=== PATIENT | female | born 1960 | race Caucasian/White ===

== ENCOUNTER 2019-07-05 15:26 | Inpatient (IN) | payer MEDICARE, OTHER ==
[2019-07-05 16:22] LABS: Basophils % (A) 0 %; Eosinophils # (A) 0.1 k/uL (0-0.7); Eosinophils % (A) 1 %; HCT 37.6 % (34.0-46.0); HGB 12.8 gm/dL (11.4-16.0); Lymphocytes # (A) 1.4 k/uL (1.0-4.8); Lymphocytes % (A) 21 %; MCH 31.5 pg (25.0-35.0); MCHC 33.9 g/dL (31.0-37.0); MCV 92.8 fL (80.0-100.0); Mean Platelet Volume 6.8; Monocytes # (A) 0.4 k/uL (0-1.0); Monocytes % (A) 6 %; Neutrophils # (A) 4.7 k/uL (1.3-7.7); Neutrophils % (A) 71 %; Platelet Count 290 k/uL (150-450); RBC 4.05 m/uL (3.80-5.40); RDW 13.9 % (11.5-15.5); WBC 6.7 k/uL (3.8-10.6)
[2019-07-05 16:32] LABS: Albumin 4.2 g/dL (3.5-5.0); Calcium 10.1 mg/dL (8.4-10.2); INR 0.9 (<1.2); Partial Thromboplastin Time 25.7 sec (22.0-30.0); Prothrombin Time 10.2 sec (9.0-12.0); Total Bilirubin 0.3 mg/dL (0.2-1.3); Total Protein 7.3 g/dL (6.3-8.2)
--- NOTE | 2019-07-05 17:11 | XR ---
EXAMINATION TYPE: XR chest 2V DATE OF EXAM: 07/05/2019 COMPARISON: NONE HISTORY: Difficulty breathing TECHNIQUE: Frontal and lateral views of the chest are obtained. FINDINGS: Heart and mediastinum are normal. Lungs are clear. Diaphragm is normal. Bony thorax appear s to show old healed right-sided rib fractures. IMPRESSION: No active cardiopulmonary disease. Normal heart.
--- NOTE | 2019-07-05 17:11 | ED ---
General Adult HPI - General Chief complaint: Shortness of Breath Stated complaint: Anxiety Time Seen by Provider: 07/05/19 15:34 Source: EMS Mode of arrival: EMS Limitations: no limitations - History of Present Illness Initial comments: Patient is 58-year-old female with history of hypercholesterolemia is presenting to emergency Department with chief complaint of shortness of breath. Patient reports this has been ongoing for the last 2 years but has greatly increased over the last week. Patient reports dyspnea on exertion whenever she is an bleeding. Patient denies any chest pain but does report an intermittent dry cough. Patient is concerned for heart failure. Patient denies any chest pain or any cardiac history. Patient states she's never had a cardiac workup but was scheduled to see Dr. Mccracken this week however she was unable to make it to the appointment. Patient denies any hemoptysis, nausea, vomiting, chest palpitations, headaches. She does report bilateral lower extremity edema that has been ongoing for the past 2 years as well and gradually increasing severity. Patient denies COPD, asthma or smoking. Patient does have a positive family history of early cardiac disease. - Related Data Allergies Allergy/AdvReac Type Severity Reaction Status Date / Time codeine Allergy Nausea & Verified 07/05/19 15:32 Vomiting oxcarbazepine Allergy Rash/Hives Verified 07/05/19 15:32 [From Trileptal] Review of Systems ROS Statement: Those systems with pertinent positive or pertinent negative responses have been documented in the HPI. ROS Other: All systems not noted in ROS Statement are negative. Past Medical History Past Medical History: Diabetes Mellitus, Hyperlipidemia, Thyroid Disorder History of Any Multi-Drug Resistant Organisms: None Reported Past Surgical History: Hysterectomy Past Psychological History: ADD/ADHD, Schizoaffective Disorder, Schizophrenia Smoking Status: Never smoker Past Alcohol Use History: None Reported Past Drug Use History: None Reported General Exam Limitations: no limitations General appearance: alert, in no apparent distress, obese Head exam: Present: atraumatic, normocephalic, normal inspection Eye exam: Present: normal appearance, PERRL, EOMI Pupils: Present: normal accommodation ENT exam: Present: normal exam, mucous membranes moist Neck exam: Present: normal inspection, full ROM Respiratory exam: Present: normal lung sounds bilaterally. Absent: respiratory distress Cardiovascular Exam: Present: regular rate, normal rhythm, normal heart sounds Extremities exam: Present: normal inspection, full ROM, normal capillary refill, pedal edema (+1 bilateral lower extremity edema.) Back exam: Present: normal inspection, full ROM Neurological exam: Present: alert, oriented X3 Psychiatric exam: Present: normal affect, normal mood Skin exam: Present: warm, intact, normal color Course Vital Signs 07/05/19 07/05/19 15:28 18:13 Temperature 98 F Pulse Rate 87 81 Respiratory 20 20 Rate Blood Pressure 133/81 134/93 O2 Sat by Pulse 98 98 Oximetry Medical Decision Making - Medical Decision Making Patient is 58-year-old female presenting to emergency Department with chief complaint of shortness of breath. Patient is also complaining of dyspnea on exertion. Her symptoms have been ongoing for about 2 years but the dyspnea on exertion is only for one week. Initial troponins are negative. EKG showing normal sinus rhythm with no ST changes. Patient has elevated d-dimer. CT of the chest is indicative of a pulmonary embolism in the left lower lobe. Patient started high-intensity heparin. Patient will be admitted for further medical management. Case discussed with physician. Medical physician is Dr. Toro. - Lab Data Result diagrams: 07/05/19 16:14 07/05/19 16:14 Lab Results 07/05/19 07/05/19 07/05/19 Range/Units 16:14 16:14 16:14 WBC 6.7 (3.8-10.6) k/uL RBC 4.05 (3.80-5.40) m/uL Hgb 12.8 (11.4-16.0) gm/dL Hct 37.6 (34.0-46.0) % MCV 92.8 (80.0-100.0) fL MCH 31.5 (25.0-35.0) pg MCHC 33.9 (31.0-37.0) g/dL RDW 13.9 (11.5-15.5) % Plt Count 290 (150-450) k/uL Neutrophils % 71 % Lymphocytes % 21 % Monocytes % 6 % Eosinophils % 1 % Basophils % 0 % Neutrophils # 4.7 (1.3-7.7) k/uL Lymphocytes # 1.4 (1.0-4.8) k/uL Monocytes # 0.4 (0-1.0) k/uL Eosinophils # 0.1 (0-0.7) k/uL Basophils # 0.0 (0-0.2) k/uL PT (9.0-12.0) sec INR (<1.2) APTT (22.0-30.0) sec D-Dimer (<0.60) mg/L FEU Sodium 140 (137-145) mmol/L Potassium 4.0 (3.5-5.1) mmol/L Chloride 102 (98-107) mmol/L Carbon Dioxide 31 H (22-30) mmol/L Anion Gap 7 mmol/L BUN 17 (7-17) mg/dL Creatinine 0.96 (0.52-1.04) mg/dL Est GFR (CKD-EPI)AfAm 74 (>60 ml/min/1.73 sqM) Est GFR (CKD-EPI)NonAf 65 (>60 ml/min/1.73 sqM) Glucose 96 (74-99) mg/dL Calcium 10.1 (8.4-10.2) mg/dL Total Bilirubin 0.3 (0.2-1.3) mg/dL AST 22 (14-36) U/L ALT 26 (9-52) U/L Alkaline Phosphatase 69 (38-126) U/L Troponin I (0.000-0.034) ng/mL NT-Pro-B Natriuret Pep 32 pg/mL Total Protein 7.3 (6.3-8.2) g/dL Albumin 4.2 (3.5-5.0) g/dL 07/05/19 07/05/19 07/05/19 Range/Units 16:14 16:14 16:14 WBC (3.8-10.6) k/uL RBC (3.80-5.40) m/uL Hgb (11.4-16.0) gm/dL Hct (34.0-46.0) % MCV (80.0-100.0) fL MCH (25.0-35.0) pg MCHC (31.0-37.0) g/dL RDW (11.5-15.5) % Plt Count (150-450) k/uL Neutrophils % % Lymphocytes % % Monocytes % % Eosinophils % % Basophils % % Neutrophils # (1.3-7.7) k/uL Lymphocytes # (1.0-4.8) k/uL Monocytes # (0-1.0) k/uL Eosinophils # (0-0.7) k/uL Basophils # (0-0.2) k/uL PT 10.2 (9.0-12.0) sec INR 0.9 (<1.2) APTT 25.7 (22.0-30.0) sec D-Dimer 0.77 H (<0.60) mg/L FEU Sodium (137-145) mmol/L Potassium (3.5-5.1) mmol/L Chloride (98-107) mmol/L Carbon Dioxide (22-30) mmol/L Anion Gap mmol/L BUN (7-17) mg/dL Creatinine (0.52-1.04) mg/dL Est GFR (CKD-EPI)AfAm (>60 ml/min/1.73 sqM) Est GFR (CKD-EPI)NonAf (>60 ml/min/1.73 sqM) Glucose (74-99) mg/dL Calcium (8.4-10.2) mg/dL Total Bilirubin (0.2-1.3) mg/dL AST (14-36) U/L ALT (9-52) U/L Alkaline Phosphatase (38-126) U/L Troponin I <0.012 (0.000-0.034) ng/mL NT-Pro-B Natriuret Pep pg/mL Total Protein (6.3-8.2) g/dL Albumin (3.5-5.0) g/dL Disposition Clinical Impression: Pulmonary embolism on left, Shortness of breath Disposition: ADMITTED IP TO THIS [facility] Condition: Stable Instructions (If sedation given, give patient instructions): Pulmonary Embolism (ED) Additional Instructions: Patient will be admitted Is patient prescribed a controlled substance at d/c from ED?: No Referrals: Jamari Castro MD [Primary Care Provider] - 1-2 days Time of Disposition: 18:26
--- NOTE | 2019-07-05 17:56 | CT ---
EXAMINATION TYPE: CT chest angio for PE DATE OF EXAM: 07/05/2019 COMPARISON: None HISTORY: Pt c/o SOB, something she has had for [address] DLP: 1072.2 mGycm Automated exposure control for dose reduction was used. CONTRAST: CT Chest for pulmonary embolism performed with with IV Contrast, patient injected with 100 mL of Isov ue 370. FINDINGS: There is a diffuse interstitial pulmonary infiltrate. There is groundglass interstitial density in jewels th lungs. There is no pleural effusion. Heart size is top normal. There is no pericardial effusion. Ascending aorta measures 3.4 cm. There is no dissection. There are small filling defect in the left l ower lobe artery and the posterior basal segment branch. There is no mediastinal adenopathy. There are no hilar masses. Bony thorax is intact. IMPRESSION: There is pulmonary embolism in a subsegmental branch of the left lower lobe pulmonary artery posterio r basal segment. Diffuse groundglass pulmonary interstitial infiltrates. This is nonspecific and could relate to inter stitial fibrosis or other interstitial lung disease. Minimal cardiomegaly. This exam was discussed with ER physician at 6:00 PM.
[2019-07-05] MEDS ORDERED: HEPARIN SODIUM,PORCINE 5,000 UNIT/ML 1 ML VIAL IV PRN (18:06)
[2019-07-05] MEDS ORDERED: HEPARIN SODIUM,PORCINE 10,000 UNIT/ML 1 ML VIAL IV ONE (18:06)
[2019-07-05] MEDS ORDERED: NALOXONE 0.4 MG/ML 1 ML VIAL IV PRN (18:15)
[2019-07-05] MEDS ORDERED: LORazepam 2 MG/ML INJ IV PRN (18:15)
[2019-07-05] MEDS: HEPARIN SOD,PORK IN 0.45% NACL 25,000 UNIT in 0.45% NACL 1 250ML.BAG IV SCH (18:37)
[2019-07-05] MEDS: SODIUM CHLORIDE 0.9% 1,000 ML IV SCH (18:39)
[2019-07-05] MEDS: ATORVASTATIN 20 MG TAB PO SCH (20:36)
[2019-07-05] MEDS: GABAPENTIN 400 MG CAP PO SCH (20:36)
[2019-07-05] MEDS: CARIPRAZINE HCL 6 MG PO SCH (20:41)
[2019-07-05] MEDS: PANTOPRAZOLE 40 MG TABLET PO SCH (20:41)
[2019-07-05] MEDS: INSULIN ASPART (NovoLOG) 100 UNIT/ML VIAL SQ SCH (20:41)
[2019-07-05 20:42] LABS: Glucose,Whole Blood 85 mg/dL (75-99)
--- NOTE | 2019-07-05 21:08 | US ---
EXAMINATION TYPE: US venous doppler duplex LE DATE OF EXAM: 07/05/2019 8:11 PM COMPARISON: NONE CLINICAL HISTORY: dvt. PE. On heparin. SIDE PERFORMED: Bilateral TECHNIQUE: The lower extremity deep venous system is examined utilizing real time linear array sonog betty with graded compression, doppler sonography and color-flow sonography. VESSELS IMAGED: External Iliac Vein (EIV) Common Femoral Vein Deep Femoral Vein Greater Saphenous Vein * Femoral Vein Popliteal Vein Small Saphenous Vein * Proximal Calf Veins (* superficial vessels) Limited due to patient body habitus Right Leg: Negative for DVT Left Leg: Negative for DVT IMPRESSION: No evidence of deep venous thrombosis in both legs.
[2019-07-05] MEDS: IPRATROPIUM-ALBUTEROL 3 ML NEB INHALATION SCH (21:45)
[2019-07-05] MEDS: QUEtiapine 25 MG TAB PO SCH (22:42)
[2019-07-05] MEDS: VENLAFAXINE HCL ER 150 MG CAP PO SCH (22:42)
--- NOTE | 2019-07-06 02:14 | HP ---
HISTORY AND PHYSICAL DATE OF SERVICE: 07/05/2019. CHIEF COMPLAINT: Shortness of breath. HISTORY OF PRESENT ILLNESS: This 58-year-old woman with a past medical history of diabetes, hypertension, hyperlipidemia, history of ADD, schizoaffective disorder, schizophrenia, being followed by Dr. Castro in the outpatient setting was complaining of shortness of breath, especially on exertion for the last several days. The patient came to [facility] and was admitted for further evaluation and treatment. A CT scan of the chest was done in the ER. The patient does not have any chest pain but intermittent cough without expectoration was complained of. There is no history of fever, rigors or chills. No history of headache, loss of consciousness or seizures. The D-dimer was elevated and CT angio chest showed subsegment pulmonary artery embolism on the right side and as well as some interstitial changes. Patient admitted for further evaluation and treatment. The patient did have an extensive pneumonia at the childhood according to her. There is no history of any fever, rigor or chills. PAST MEDICAL HISTORY: History of diabetes, hypertension, hyperlipidemia, hysterectomy, ADD, ADHD, schizoaffective depressive disorder, schizophrenia, history of pneumonia in childhood. MEDICATIONS: Home medications are: 1. Trazodone 150 mg q.h.s. 2. Effexor XR 300 mg q.h.s. 3. [place] Thyroid 90 mg p.o. daily. 4. Protonix 40 mg p.o. b.i.d. 5. Seroquel 25 mg q.h.s. 6. Neurontin 1200 mg q.h.s. 7. Estrace 1 g daily. 8. Adderall 30 mg p.o. daily. 10.Vraylar 6 mg p.o. q.h.s. 11.Lipitor 20 mg q.h.s. 12.Ventolin 1-2 puffs q.4 p.r.n. ALLERGIES: CODEINE AND TRILEPTAL. FAMILY HISTORY: No history of heart disease, strokes in the family. SOCIAL HISTORY: No history of smoking. No alcohol intake. REVIEW OF SYSTEMS: ENT: No diminished vision. No diminished hearing. CARDIOVASCULAR: No angina or palpitations. RESPIRATION as mentioned earlier. GI: No nausea or vomiting. no dysuria or retention. Nervous system: No numbness or weakness. Allergy/Immunology: No asthma or hayfever. MUSCULOSKELETAL as mentioned earlier. Hematology/Oncology: No history or anemia. ENDOCRINE: No history of diabetes or hypothyroidism. CONSTITUTIONAL: As mentioned earlier. DERMATOLOGY: Negative. RHEUMATOLOGY negative. PSYCHIATRY as mentioned earlier. PULMONARY: As mentioned earlier. HEMATOLOGY mentioned earlier. PHYSICAL EXAMINATION: Alert and oriented times three. Pulse 87, blood pressure 133/81, respiration 20, temperature 98 degrees, pulse ox 98% on room air. HEENT: Conjunctivae normal. Oral mucosa moist. NECK is obese. No jugular venous distention. No carotid bruit. No lymph node enlargements. Breathing efforts increased. Cardiovascular system: S1, S2 muffled. No S3, no S4. RESPIRATORY: Breath sounds diminished in the bases. A few scattered rhonchi and crackles. ABDOMEN: Soft, obese, nontender. No mass palpable. LEGS no edema. No swelling. NERVOUS SYSTEM: Higher functions as mentioned earlier. Moves all four limbs. No focal motor or sensory deficits. LYMPHATICS: No lymph nodes palpable in the neck, axillae or groin. SKIN: No ulcer, rash or bleeding. JOINTS: No active deforming arthropathy. LABS: At this time: CBC within normal limits. D-dimer is 0.77. The CT angio personally reviewed by me. ASSESSMENT: 1. Shortness of breath with acute pulmonary embolism on the right side. 2. Rule out interstitial infiltrate versus scarring. 3. Elevated D-dimer 0.77. 4. Super morbid obesity BMI of 53.6. 5. History of diabetes type 2. 6. Hyperlipidemia. 7. Hypothyroidism. 8. History of hysterectomy. 9. History attention-deficit disorder/ attention-deficit/hyperactivity disorder. 10.History of schizophrenia and schizoaffective disorder. 11.Passive smoking exposure. 12.Remote history of pneumonia while in childhood. 13.FULL CODE. RECOMMENDATIONS AND DISCUSSION: In this 58-year-old woman who presented with multiple complex medical issues, at this time, I recommend to continue current medications, management and symptomatic treatment. I recommend continue with IV heparin per protocol. Otherwise, resume the home medications. Consult Dr. Childers and I would also recommend ultrasound of the legs to rule out the possibility of DVT. Symptomatic treatment provided. The patient also had some shortness of breath and some exposure to the smoking. The addition possibility of COPD is also to be considered. I would recommend empiric bronchodilators at this time and we will continue to monitor. The patient might require outpatient workup to rule out the possibility of any obstructive lung disease. Once again, the prognosis is guarded. Copy of dictation being forwarded to Dr. Castro who is the primary physician. Further recommendations to follow. Discussed with the patient who understands and agrees. Matthew's soft. MMKAMARL / IJN: [id number] / MTDD
[2019-07-06] MEDS: HEPARIN SOD,PORK IN 0.45% NACL 25,000 UNIT in 0.45% NACL 1 250ML.BAG IV SCH ×2 (04:34→19:03)
[2019-07-06 07:07] LABS: Glucose,Whole Blood 108 mg/dL (75-99)
[2019-07-06] MEDS: INSULIN ASPART (NovoLOG) 100 UNIT/ML VIAL SQ SCH ×4 (08:04→20:48)
[2019-07-06] MEDS: DEXTROAMPHETAMINE PO SCH (08:05)
[2019-07-06] MEDS: AMPHETAMINE PO SCH (08:05)
[2019-07-06] MEDS: PANTOPRAZOLE 40 MG TABLET PO SCH ×2 (08:10→16:42)
[2019-07-06] MEDS: THYROID, PORK 30 MG TAB PO SCH (08:11)
[2019-07-06] MEDS: LORATADINE 10 MG TAB PO SCH (08:11)
[2019-07-06] MEDS: NON FORMULARY DRUG (Dextroamphetamine/Amphetamine [Adderall] 30 MG) PO SCH (08:13)
[2019-07-06 08:14] LABS: Basophils % (A) 1 %; Eosinophils # (A) 0.2 k/uL (0-0.7); Eosinophils % (A) 4 %; HCT 38.2 % (34.0-46.0); HGB 12.7 gm/dL (11.4-16.0); Lymphocytes # (A) 1.4 k/uL (1.0-4.8); Lymphocytes % (A) 30 %; MCH 31.4 pg (25.0-35.0); MCHC 33.4 g/dL (31.0-37.0); Mean Platelet Volume 7.9; Monocytes # (A) 0.3 k/uL (0-1.0); Monocytes % (A) 7 %; Neutrophils # (A) 2.6 k/uL (1.3-7.7); Neutrophils % (A) 57 %; Platelet Count 218 k/uL (150-450); RBC 4.06 m/uL (3.80-5.40); WBC 4.6 k/uL (3.8-10.6)
[2019-07-06 08:25] LABS: Calcium 9.6 mg/dL (8.4-10.2); Potassium 4.8 mmol/L (3.5-5.1)
[2019-07-06] MEDS: IPRATROPIUM-ALBUTEROL 3 ML NEB INHALATION SCH ×4 (08:40→19:48)
[2019-07-06] MEDS: SODIUM CHLORIDE 0.9% 1,000 ML IV SCH (08:43)
[2019-07-06 11:48] LABS: Glucose,Whole Blood 86 mg/dL (75-99)
--- NOTE | 2019-07-06 14:52 | CT ---
EXAMINATION TYPE: CT chest wo con DATE OF EXAM: 07/06/2019 COMPARISON: None HISTORY: rule out ILD, dyspnea CT DLP: 1682.8 mGycm High-resolution noncontrast CT of the chest was performed with the patient in the prone and supine po sitions. Lung and mediastinal window settings are submitted. The lungs appear to be well-aerated. Subpleural fibrotic changes are noted within both lung s[place] mi ld in degree within the mid and lower lung zones right slightly greater than left. There is no eviden ce for bronchiectasis, groundglass infiltrate, nodule or mass. No pleural effusion is identified. I do not see evidence for hilar or mediastinal mass or adenopathy. IMPRESSION: Mild subpleural fibrosis as discussed.
--- NOTE | 2019-07-06 15:03 | XR ---
EXAMINATION TYPE: XR knee complete LT DATE OF EXAM: 07/06/2019 CLINICAL HISTORY: pain TECHNIQUE: Three views of the left knee are obtained. COMPARISON: None. FINDINGS: There is no acute fracture/dislocation. Moderate to severe degenerative degenerative joint space narrowing medial tibiofemoral joint space and patellofemoral joint space with associated spur formation. The overlying soft tissue appears unremarkable. IMPRESSION: There is no acute fracture or dislocation ICD 10 NO FRACTURE, INITIAL EVALUATION
--- NOTE | 2019-07-06 15:38 | P.CNPUL ---
History of Present Illness Consult date: 07/06/19 Reason for consult: dyspnea History of present illness: This is a 58-year-old female patient, morbidly obese, previous history of psychiatric disorder including schizoaffective disorder and ADD, diabetic and has hypothyroidism and hyperlipidemia, and she Has a BMI 53.6. No personal or family history of DVT or pulmonary embolism. The patient has chronic exertional dyspnea and typically she gets short of breath with limited amount of activity. Over the past few weeks she has expiratory is worsening shortness of breath. No pleurisy. No hemoptysis. No chest pain. No leg edema. Pain or tenderness. She came into the emergency department and she had a troponin within normal limits, BNP level of 32, d-dimer of 0.77 and for that reason a CT angiogram was ordered. The CT angiogram raises the possibility of a subsegmental left lower l obe filling defect consistent with pulmonary embolism and for that reason the patient was started on IV heparin. Note that the Doppler of the lower extremities of been negative. The patient is a bit anxious pH is short of breath. 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 He did the job at the age of 16 for only [address] angiogram also raised the possibility of around last changes and for that reason I'm going to proceed with a high resolution computed tomography scan of the chest to make sure there is no possibility of an underlying interstitial lung disease. No a nemia. Currently on IV heparin. Review of Systems Constitutional: Reports daytime sleepiness, Reports fatigue, Reports weakness Eyes: denies as per HPI, denies blurred vision, denies bulging eye, denies decreased vision, denies diplopia, denies discharge, denies dry eye, denies irritation, denies itching, denies pain, denies photophobia, denies loss of peripheral vision, denies loss of vision, denies tunnel vision/blind spots Ears: deny: decreased hearing, ear discharge, earache, tinnitus Ears, nose, mouth and throat: Denies headache, Denies sore throat Breasts: absent: as per HPI, change in shape, gynecomastia, masses, nipple discharge, pain, skin changes, swelling Cardiovascular: Reports dyspnea on exertion Respiratory: Reports dyspnea, Reports sleep apnea, Reports snoring Gastrointestinal: Denies abdominal pain, Denies diarrhea, Denies nausea, Denies vomiting Genitourinary: Reports as per HPI Menstruation: Reports as per HPI Musculoskeletal: Reports as per HPI Musculoskeletal: absent: ankle pain, ankle stiffness, ankle swelling, as per HPI, elbow pain, elbow stiffness, elbow swelling, foot pain, foot stiffness, foot swelling, hand pain, hand stiffness, hand swelling, hip pain, hip stiffness, hip swelling, knee pain, knee stiffness, knee swelling, shoulder pain, shoulder stiffness, shoulder swelling, wrist pain, wrist stiffness, wrist swelling Integumentary: Reports as per HPI Neurological: Reports as per HPI Psychiatric: Reports anxiety, Reports depression, Reports sleep disturbances Endocrine: Reports as per HPI, Reports fatigue Hematologic/Lymphatic: Reports as per HPI Allergic/Immunologic: Reports as per HPI Past Medical History Past Medical History: Diabetes Mellitus, Hyperlipidemia, Thyroid Disorder Additional Past Medical History / Comment(s): Osteoporosis, ADD, OCD, schizoaffective disorder, hypothyroid, osteoporosis, obesity, hyperlipidemia. 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 age of 16 worked for [employer] and exposure to silica and jacobo dust History of Any Multi-Drug Resistant Organisms: None Reported Past Surgical History: Hysterectomy Additional Past Surgical History / Comment(s): endometrosis surgeries x2 Past Anesthesia/Blood Transfusion Reactions: No Reported Reaction, Blood Transfusion Reaction Additional Past Anesthesia/Blood Transfusion Reaction / Comment(s): PAtient wants no blood transfusions Past Psychological History: ADD/ADHD, Schizoaffective Disorder, Schizophrenia Smoking Status: Former smoker (2 py only quit aat the age og 16) Past Alcohol Use History: None Reported Past Drug Use History: None Reported - Past Family History Mother Additional Family Medical History / Comment(s): tutuyma from Father Family Medical History: Myocardial Infarction ([place]) Additional Family Medical History / Comment(s): at 67 Medications and Allergies Home Medications Medication Instructions Recorded Confirmed Type Albuterol Sulfate [Ventolin HFA] 1 - 2 puff INHALATION RT-Q4H PRN 07/05/19 History Atorvastatin [Lipitor] 20 mg PO HS 07/05/19 07/05/19 History Cariprazine HCl [Vraylar] 6 mg PO HS 07/05/19 07/05/19 History Cetirizine HCl [Zyrtec] 10 mg PO DAILY 07/05/19 07/05/19 History Dextroamphetamine/Amphetamine 30 mg PO DAILY@1500 07/05/19 07/05/19 History [Adderall] Dextroamphetamine/Amphetamine 60 mg PO DAILY@0800 07/05/19 07/05/19 History [Adderall] Estradiol Cream [Estrace Cream 1 gm VAGINAL WE 07/05/19 07/05/19 History 0.01%] Gabapentin [Neurontin] 1,200 mg PO HS 07/05/19 07/05/19 History Pantoprazole Sodium [Protonix] 40 mg PO BID 07/05/19 07/05/19 History QUEtiapine [SEROquel] 25 mg PO HS 07/05/19 07/05/19 History Thyroid,Pork [[place] Thyroid] 90 mg PO DAILY 07/05/19 07/05/19 History Venlafaxine HCl [Effexor XR] 300 mg PO HS 07/05/19 07/05/19 History traZODone HCL 150 mg PO HS 07/05/19 07/05/19 History Allergies Allergy/AdvReac Type Severity Reaction Status Date / Time codeine Allergy Nausea & Verified 07/05/19 18:30 Vomiting oxcarbazepine Allergy Rash/Hives Verified 07/05/19 18:30 [From Trileptal] Physical Exam Vitals: Vital Signs Temp Pulse Pulse Resp BP BP Pulse Ox 07/06/19 11:51 74 07/06/19 11:40 72 07/06/19 07:52 97.6 F 78 16 111/72 98 07/06/19 02:00 97.9 F 69 16 112/71 93 L 07/05/19 21:56 75 07/05/19 21:46 75 94 L 07/05/19 19:35 98.0 F 70 145/83 96 07/05/19 18:50 87 20 141/83 97 07/05/19 18:13 81 20 134/93 98 07/05/19 15:28 98 F 87 20 133/81 98 Intake and Output 07/05/19 07/06/19 07/06/19 22:59 06:59 14:59 Intake Total 630 969.362 75.468 Balance 630 969.362 75.468 Intake: Intake, IV Titration 150 969.362 75.468 Amount Heparin Sod,Pork in 0.45% 219.362 75.468 NaCl 25,000 unit In 0.45 % NaCl 1 250ml.bag @ 15. 273 UNITS/KG/HR 23 mls/hr IV .[id number] [facility] Rx#: [id number] Sodium Chloride 0.9% 1, 150 750 000 ml @ 75 mls/hr IV . [id number] [facility] Rx#:[id number] Oral 480 Other: Voiding Method Toilet # Voids 1 Weight 150.593 kg Morbidly obese, comfortable likely distress care is a BMI of 53.6. Head exam was generally normal. There was no scleral icterus or corneal arcus. Mucous membranes were moist. Neck was supple and without jugular venous distension, thyromegaly, or carotid bruits. Carotids were easily palpable bilaterally. There was no adenopathy. Lymphatic less for Lungs were clear to auscultation and percussion, and with normal diaphragmatic excursion. No wheezes or rales were noted. Breath sounds are diminished in the lung bases. No wheezes or rhonchi or crackles. Cardiac exam revealed the PMI to be normally situated and sized. The rhythm was regular and no extrasystoles were noted during several minutes of auscultation. The first and second heart sounds were normal and physiologic splitting of the second heart sound was noted. There were no murmurs, rubs, clicks, or gallops. Abdomen is obese and the patient also cannot be accurately palpated. No direct tenderness about this or guarding. No organomegaly. Examination of the extremities revealed easily palpable radial, femoral and pedal pulses. There was no cyanosis, clubbing or edema. Examination of the skin revealed no evidence of significant rashes, suspicious appearing nevi or other concerning lesions. Neurologically she is awake and alert is no focal nodularity deficit. Results - Laboratory Findings CBC and BMP: 07/06/19 07:43 07/06/19 07:43 PT/INR, D-dimer PT 10.2 sec (9.0-12.0) 07/05/19 16:14 INR 0.9 (<1.2) 07/05/19 16:14 D-Dimer 0.77 mg/L FEU (<0.60) H 07/05/19 16:14 Abnormal lab findings: Abnormal Labs 07/05/19 07/05/19 07/06/19 16:14 16:14 00:36 APTT >200.0 H* D-Dimer 0.77 H Carbon Dioxide 31 H BUN Glucose POC Glucose (mg/dL) 07/06/19 07/06/19 07/06/19 07:05 07:43 07:43 APTT 65.9 H D-Dimer Carbon Dioxide BUN 18 H Glucose 123 H POC Glucose (mg/dL) 108 H - Diagnostic Findings Chest x-ray: image reviewed CT scan - chest: image reviewed Assessment and Plan Plan: 1 acute unprovoked left lower lobe pulmonary embolism with subsegmental filling defect in the left lower lobe pulmonary artery branches. Doppler of the lower extremities negative. D-dimer is a mildly elevated 2 minimal interstitial changes in lung bases, consider underlying interstitial lung disease/fibrosis. This is to be further worked up with a high resolution computed tomography scan of the chest 3 morbid obesity with a BMI of 53 4 chronic exertional dyspnea 5 diabetes mellitus 6 hypertension 7 hypothyroidism 8 schizoaffective disorder 9 ADD 10 OCD Plan Continued IV heparin and tenderness in this patient oral anticoagulants with the next 24 hours. This is an unprovoked event and she would need 6 months a year of treatment with anticoagulation. Proceed with a high resolution computed tomography scan of the chest to rule out any interstitial lung disease in addition to pulmonary embolism. Obtain an echocardiogram. We'll continue to follow.
[2019-07-06] MEDS ORDERED: FUROSEMIDE 10 MG/ML 4 ML VIAL IV STA (16:27)
[2019-07-06 16:34] LABS: Glucose,Whole Blood 88 mg/dL (75-99)
[2019-07-06] MEDS: methylPREDNISolone SOD SUCCI 125 MG/2 ML VIAL IV SCH (17:00)
--- NOTE | 2019-07-06 18:03 | PN ---
PROGRESS NOTE DATE OF SERVICE: 07/06/2019 This 58-year-old woman who was admitted with shortness of breath had significant pulmonary embolism. Patient also had possible interstitial fibrosis. Dr. Childers has seen the patient and recommended continuing with the IV heparin at this time and also possible outpatient workup with high-resolution CT scan regarding the fibroid interstitial disease. The patient is being closely monitored. The patient is on IV heparin. PTT is being monitored. Past medical history reviewed. REVIEW OF SYSTEMS: CARDIOVASCULAR SYSTEM: No angina, palpitations. RESPIRATORY SYSTEM: As mentioned earlier. GI: As mentioned earlier. : No dysuria or retention. NERVOUS SYSTEM: No numbness, weakness. CURRENT MEDICATIONS: Reviewed. They include: 1. DuoNeb q.i.d. and p.r.n. 2. Lipitor 20 mg at bedtime. 3. Estrace cream. 4. Neurontin 1200 mg p.o. daily. 5. Heparin. 6. NovoLog. 7. Claritin. 8. Narcan. 9. Adderall. 10.Protonix. 11.Seroquel. 12.Effexor. 13.[place] Thyroid. PHYSICAL EXAMINATION: Patient is alert, oriented x3. Pulse is 75, blood pressure 124/75, respiration 19, temperature 98.1, pulse ox 94% on room air. HEENT: Conjunctivae normal. NECK: No jugular venous distention. CARDIOVASCULAR SYSTEM: S1, S2 muffled. RESPIRATORY SYSTEM: Breath sounds diminished at the bases. A few scattered rhonchi and crackles. ABDOMEN: Soft, non-tender. No mass palpable. LEGS: No edema. No swelling. NERVOUS SYSTEM: Higher functions as mentioned earlier. Moves all 4 limbs. No focal motor or sensory deficit. LYMPHATICS: No lymph node palpable in neck, axillae or groin. SKIN: No ulcer, rash, bleeding. JOINTS: No active deforming arthropathy. LABS: CBC within normal limits. Sodium 138, potassium 4.8. Glucose 123. ASSESSMENT: 1. Shortness of breath with acute pulmonary embolism on the left side. 2. Possible interstitial lung disease versus fibrosis. 3. Significant shortness of breath. 4. Elevated D-dimer of 0.77. 5. Super morbid obesity with body mass index of 53.6. 6. History of diabetes mellitus, type 2. 7. Hyperlipidemia. 8. Hypothyroidism. 9. History of hysterectomy. 10.History of attention deficit disorder, attention deficit hyperactivity disorder. 11.History of schizophrenia and schizoaffective disorder. 12.Passive smoking exposure. 13.Remote history of pneumonia while in childhood. 14.FULL CODE. RECOMMENDATIONS AND DISCUSSION: I recommend to continue current medications, continue with symptomatic treatment. Continue with IV steroids. Continue with the bronchodilators. I would continue with IV heparin. Small dose of Lasix. I would also recommend cardiac workup, including a 2D echo with Doppler. Please note that BNP is normal. Further recommendations to follow. Short course of IV steroids. The patient did have passive exposure to smoking. Further recommendations to follow. MMODL / IJN: [id number] /
[2019-07-06] MEDS: ACETAMINOPHEN TAB 325 MG TAB PO PRN (20:30)
[2019-07-06 20:36] LABS: Glucose,Whole Blood 164 mg/dL (75-99)
[2019-07-06] MEDS: GABAPENTIN 400 MG CAP PO SCH (20:47)
[2019-07-06] MEDS: CARIPRAZINE HCL 6 MG PO SCH (20:48)
[2019-07-06] MEDS: VENLAFAXINE HCL ER 150 MG CAP PO SCH (20:48)
[2019-07-06] MEDS: QUEtiapine 25 MG TAB PO SCH (20:48)
[2019-07-06] MEDS: ATORVASTATIN 20 MG TAB PO SCH (20:48)
[2019-07-07] MEDS: methylPREDNISolone SOD SUCCI 125 MG/2 ML VIAL IV SCH ×5 (01:19→23:42)
[2019-07-07] MEDS: HEPARIN SOD,PORK IN 0.45% NACL 25,000 UNIT in 0.45% NACL 1 250ML.BAG IV SCH ×3 (03:49→23:45)
[2019-07-07 07:06] LABS: Basophils % (A) 0 %; Eosinophils % (A) 0 %; HCT 39.6 % (34.0-46.0); HGB 12.8 gm/dL (11.4-16.0); Lymphocytes # (A) 0.8 k/uL (1.0-4.8); Lymphocytes % (A) 13 %; MCH 30.9 pg (25.0-35.0); MCHC 32.4 g/dL (31.0-37.0); MCV 95.2 fL (80.0-100.0); Mean Platelet Volume 7.3; Monocytes # (A) 0.1 k/uL (0-1.0); Monocytes % (A) 1 %; Neutrophils # (A) 5.4 k/uL (1.3-7.7); Neutrophils % (A) 85 %; Platelet Count 293 k/uL (150-450); RBC 4.16 m/uL (3.80-5.40); RDW 13.9 % (11.5-15.5); WBC 6.4 k/uL (3.8-10.6)
[2019-07-07 07:20] LABS: Glucose,Whole Blood 150 mg/dL (75-99)
[2019-07-07] MEDS: INSULIN ASPART (NovoLOG) 100 UNIT/ML VIAL SQ SCH ×4 (07:43→20:34)
[2019-07-07] MEDS: IPRATROPIUM-ALBUTEROL 3 ML NEB INHALATION SCH ×4 (07:53→19:44)
[2019-07-07] MEDS: THYROID, PORK 30 MG TAB PO SCH (08:26)
[2019-07-07] MEDS: PANTOPRAZOLE 40 MG TABLET PO SCH (08:26)
[2019-07-07] MEDS: LORATADINE 10 MG TAB PO SCH (08:26)
[2019-07-07 08:30] LABS: African American GFR (CKD) >90 (>60 ml/min/1.73 sqM); Anion Gap 12 mmol/L; Blood Urea Nitrogen 16 mg/dL (7-17); Carbon Dioxide 23 mmol/L (22-30); Chloride 104 mmol/L (98-107); Glucose 168 mg/dL (74-99); Non-African American GFR(CKD) 81 (>60 ml/min/1.73 sqM); Potassium 4.8 mmol/L (3.5-5.1); Sodium 139 mmol/L (137-145)
[2019-07-07] MEDS: DEXTROAMPHETAMINE PO SCH (08:38)
[2019-07-07] MEDS: AMPHETAMINE PO SCH (08:38)
[2019-07-07] MEDS: ACETAMINOPHEN TAB 325 MG TAB PO PRN ×2 (11:20→17:40)
[2019-07-07 11:48] LABS: Glucose,Whole Blood 145 mg/dL (75-99)
--- NOTE | 2019-07-07 12:01 | ECHOF ---
Referral Reason:dyspnea MEASUREMENTS -------- HEIGHT: 167.6 cm WEIGHT: 150.6 kg BP: 133/75 RVIDd: 3.6 cm (< 3.3) IVSd: 1.5 cm (0.6 - 1.1) LVIDd: 3.8 cm (3.9 - 5.3) LVPWd: 1.7 cm (0.6 - 1.1) IVSs: 2.0 cm LVIDs: 2.4 cm LVPWs: 2.0 cm LAESV Index (A-L): 20.54 ml/m Ao Diam: 3.5 cm (2.0 - 3.7) AV Cusp: 2.5 cm (1.5 - 2.6) LA Diam: 4.2 cm (2.7 - 3.8) MV E Esvin: 0.52 m/s MV DecT: 205 ms MV A Esvin: 0.92 m/s MV E/A Ratio: 0.57 AV maxP.13 mmHg AV meanP.28 mmHg RAP: 5.00 mmHg RVSP: 40.42 mmHg FINDINGS -------- Sinus rhythm. This was a technically adequate study. The left ventricular size is normal. There is moderate concentric left ventricular hypertrophy. O verall left ventricular systolic function is normal with, an EF between 60 - 65 %. The diastolic fi lling pattern is normal for the age of the patient 7.63. The right ventricle is mildly enlarged. Normal LA size by volume 22+/-6 ml/m2. The right atrium was not well visualized. Interatrial and interventricular septum intact. There is no evidence of aortic regurgitation. There is no evidence of aortic stenosis. No mitral regurgitation. Mild tricuspid regurgitation present. There is mild pulmonary hypertension. The right ventricular systolic pressure, as measured by Doppler, is 40.42mmHg. There is no pulmonic regurgitation present. The aortic root size is normal. The inferior vena cava is mildly dilated. There is no pericardial effusion. CONCLUSIONS -------- 1. Sinus rhythm. 2. This was a technically adequate study. 3. The left ventricular size is normal. 4. There is moderate concentric left ventricular hypertrophy. 5. Overall left ventricular systolic function is normal with, an EF between 60 - 65 %. 6. The diastolic filling pattern is normal for the age of the patient 7.63 7. The right ventricle is mildly enlarged. 8. Normal LA size by volume 22+/-6 ml/m2. 9. The right atrium was not well visualized. 10. Interatrial and interventricular septum intact. 11. There is no evidence of aortic regurgitation. 12. There is no evidence of aortic stenosis. 13. No mitral regurgitation. 14. Mild tricuspid regurgitation present. 15. There is mild pulmonary hypertension. 16. The right ventricular systolic pressure, as measured by Doppler, is 40.42mmHg. 17. There is no pulmonic regurgitation present. 18. The aortic root size is normal. 19. The inferior vena cava is mildly dilated. 20. There is no pericardial effusion. CREDIT AND COLLECTIONS REPRESENTATIVE: Marilia Gutierrez RDCS
[2019-07-07] MEDS ORDERED: MAG HYDROX/AL HYDROX/SIMETH 30 ML CUP PO PRN (13:48)
[2019-07-07] MEDS: NON FORMULARY DRUG (Dextroamphetamine/Amphetamine [Adderall] 30 MG) PO SCH (14:38)
--- NOTE | 2019-07-07 14:51 | P.PN ---
Subjective Progress Note Date: 07/07/19 This is a 58-year-old female patient, morbidly obese, previous history of psychiatric disorder including schizoaffective disorder and ADD, diabetic and has hypothyroidism and hyperlipidemia, and she Has a BMI 53.6. No personal or family history of DVT or pulmonary embolism. The patient has chronic exertional dyspnea and typically she gets short of breath with limited amount of activity. Over the past few weeks she has expiratory is worsening shortness of breath. No pleurisy. No hemoptysis. No chest pain. No leg edema. Pain or tenderness. She came into the emergency department and she had a troponin within normal limits, BNP level of 32, d-dimer of 0.77 and for that reason a CT angiogram was ordered. The CT angiogram raises the possibility of a subsegmental left lower lobe filling defect consistent with pulmonary embolism and for that reason the patient was started on IV heparin. Note that the Doppler of the lower extremities of been negative. The patient is a bit anxious pH is short of breath. 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 He did the job at the age of 16 for only [address]ogram also raised the possibility of around last changes and for that reason I'm going to proceed with a high resolution computed tomography scan of the chest to make sure there is no possibility of an underlying interstitial lung disease. No anemia. Currently on IV heparin. Days evaluation of 07/07/2019 I'm seeing the patient for a follow-up. The patient is on IV heparin regarding subsegmental pulmonary embolism in the left lower lobe. High resolution computed tomography scan of the chest was done and showed some minimal interstitial changes in lung bases more so on the right. The patient's echocardiogram showed a preserved LV function with mild to moderate degree of pulmonary hypertension with a PA pressure in the low 40 range. No nausea. No vomiting. No abdominal pain. Less anxious on today's evaluation. Objective - Vital Signs Vital signs: Vital Signs Temp 97.8 F 07/07/19 06:55 Pulse 83 07/07/19 06:55 Resp 17 07/07/19 06:55 BP 133/75 07/07/19 06:55 Pulse Ox 96 07/07/19 06:55 Intake & Output 07/06/19 07/07/19 07/07/19 18:59 06:59 18:59 Intake Total 250.000 165.36 484.640 Balance 250.000 165.36 484.640 Intake: Intake, IV Titration 250.000 165.36 84.640 Amount Heparin Sod,Pork in 0.45% 250.000 165.36 84.640 NaCl 25,000 unit In 0.45 % NaCl 1 250ml.bag @ 15. 273 UNITS/KG/HR 23 mls/hr IV .[id number] [facility] Rx#: [id number] Oral 400 Other: Voiding Method Toilet Toilet Toilet # Voids 1 2 - Exam Morbidly obese, comfortable likely distress care is a BMI of 53.6. Head exam was generally normal. There was no scleral icterus or corneal arcus. Mucous membranes were moist. Neck was supple and without jugular venous distension, thyromegaly, or carotid bruits. Carotids were easily palpable bilaterally. There was no adenopathy. Lymphatic less for Lungs were clear to auscultation and percussion, and with normal diaphragmatic excursion. No wheezes or rales were noted. Breath sounds are diminished in the lung bases. No wheezes or rhonchi or crackles. Cardiac exam revealed the PMI to be normally situated and sized. The rhythm was regular and no extrasystoles were noted during several minutes of auscultation. The first and second heart sounds were normal and physiologic splitting of the second heart sound was noted. There were no murmurs, rubs, clicks, or gallops. Abdomen is obese and the patient also cannot be accurately palpated. No direct tenderness about this or guarding. No organomegaly. Examination of the extremities revealed easily palpable radial, femoral and pedal pulses. There was no cyanosis, clubbing or edema. Examination of the skin revealed no evidence of significant rashes, suspicious appearing nevi or other concerning lesions. Neurologically she is awake and alert is no focal nodularity deficit. - Labs CBC & Chem 7: 07/07/19 06:44 07/07/19 06:44 Labs: Abnormal Lab Results - Last 24 Hours (Table) 07/06/19 07/07/19 07/07/19 Range/Units 20:32 06:44 06:44 Lymphocytes # 0.8 L (1.0-4.8) k/uL APTT (22.0-30.0) sec Glucose 168 H (74-99) mg/dL POC Glucose (mg/dL) 164 H (75-99) mg/dL 07/07/19 07/07/19 07/07/19 Range/Units 06:44 07:18 11:46 Lymphocytes # (1.0-4.8) k/uL APTT 89.0 H (22.0-30.0) sec Glucose (74-99) mg/dL POC Glucose (mg/dL) 150 H 145 H (75-99) mg/dL 07/07/19 Range/Units 13:57 Lymphocytes # (1.0-4.8) k/uL APTT 63.6 H (22.0-30.0) sec Glucose (74-99) mg/dL POC Glucose (mg/dL) (75-99) mg/dL Assessment and Plan Plan: 1 acute unprovoked left lower lobe pulmonary embolism with subsegmental filling defect in the left lower lobe pulmonary artery branches. Doppler of the lower extremities negative. D-dimer is a mildly elevated 2 minimal interstitial changes in lung bases, consider underlying interstitial lung disease/fibrosis. 3 morbid obesity with a BMI of 53 4 chronic exertional dyspnea, he shouldn't had some limited bronchospasm wheezing and she responded nicely to systemic steroids. 5 diabetes mellitus 6 hypertension 7 hypothyroidism 8 schizoaffective disorder 9 ADD 10 OCD Plan I explained the findings to the patient. The patient is feeling slightly better on today's evaluation. Echo was within normal limits. CAT scan of the chest high resolution so some limited scarring in the lung bases pH is responding to steroids and she is less bronchospastic and wheezy. She has been on IV heparin. We'll get an approval on Eliquis and once approved with switch her to oral anticoagulation. We'll switch her also to a prednisone burst taper as of tomorrow. Outpatient sleep study regarding sleep apnea.
[2019-07-07] MEDS: PSEUDOEPHEDRINE 30 MG TAB PO SCH ×2 (15:06→21:12)
[2019-07-07 16:52] LABS: Glucose,Whole Blood 169 mg/dL (75-99)
--- NOTE | 2019-07-07 18:29 | PN ---
PROGRESS NOTE DATE OF SERVICE: 07/07/2019 This 58-year-old woman with a past medical history of multiple medical problems was admitted with shortness of breath, possibly multifactorial, possibly interstitial lung disease, lung problems as well as acute pulmonary embolism. Patient is on IV heparin. The patient also complaining of abdominal pain. The D-dimer was elevated, but no evidence of pulmonary embolism noted. Dr. Childers is following the patient closely. A 2D echo with Doppler was also done today. A 2D echo showed ejection fraction 60-65 percent. is mildly enlarged and minimal valvular abnormalities also. PAST MEDICAL HISTORY: Reviewed. REVIEW OF SYSTEMS: Cardiovascular system: No angina or palpitations. Otherwise as mentioned earlier. RESPIRATORY: As mentioned earlier. GI no nausea or vomiting. : No dysuria. CENTRAL NERVOUS SYSTEM: No numbness, weakness. CURRENT MEDICATIONS: Reviewed and include: 1. Tylenol 650 q.6h p.r.n. 2. Maalox p.r.n. 3. DuoNeb q.i.d. and p.r.n. 4. Lipitor 40 mg q.h.s. 5. Rocephin 1 g daily. 6. Estrace. 7. Neurontin 1200 mg q.h.s. 8. Heparin 5000 subcu b.i.d. 9. NovoLog. 10.Claritin. 11.Ativan. 12.Solu-Medrol 60 IV q.6h. 13.Narcan. 14.Protonix. 15.Sudafed. 16.Seroquel. 17.[place] Thyroid. 18.Effexor XR. PHYSICAL EXAMINATION: Patient is alert, oriented x3. Pulse 76. Blood pressure 144/60, respiration 18, temperature 97.8, pulse ox 91 percent on room air. HEENT: Conjunctivae normal. NECK: No JVD. CARDIOVASCULAR: S1, S2 muffled. RESPIRATION: Breath sounds diminished in the bases. Scattered rhonchi and crackles. The patient is short of breath. ABDOMEN: Soft, obese, mild diffuse discomfort. No guarding. No rigidity. No mass palpable. LEGS no edema. No swelling. Nervous System: No focal deficits. LABS: APTT noted. CBC within normal limits. Glucose 168. ASSESSMENT: 1. Shortness of breath with possibly acute pulmonary embolism on the left side. 2. Possible interstitial lung disease versus fibrosis. 3. Rule out bronchial asthma. 4. Significant shortness of breath. 5. Abdominal pain for possible acute gastritis. 6. Elevated D-dimer 0.77. 7. Super morbid obesity with body mass index of 53.6. 8. History of diabetes type 2. 9. Hypertension. 10.Hyperlipidemia. 11.Hypothyroidism. 12.History of hysterectomy. 13.History of ADD, ADHD. 14.History of schizophrenia and schizoaffective disorder. 15.Passive smoking exposure. 16.Remote history of pneumonia, while childhood. 17.FULL CODE. RECOMMENDATIONS AND DISCUSSION: Recommend to continue current medications, management and symptomatic treatment. Continue the bronchodilators. Patient had multiple respiratory issues previously which could be exacerbating at this time. I would recommend continue the heparin. Continue the rest of medication. Continue steroids. Continue symptomatic treatment for the abdominal pain. Prognosis guarded because of multiple complex medical issues. Further recommendations to follow. ADRIEL / HARLEEN: [id number] / MTDD
[2019-07-07 20:24] LABS: Glucose,Whole Blood 216 mg/dL (75-99)
[2019-07-07] MEDS: CARIPRAZINE HCL 6 MG PO SCH (20:34)
[2019-07-07] MEDS: PANTOPRAZOLE 40 MG/10 ML VIAL IVP SCH (20:39)
[2019-07-07] MEDS: GABAPENTIN 400 MG CAP PO SCH (20:39)
[2019-07-07] MEDS: QUEtiapine 25 MG TAB PO SCH (20:40)
[2019-07-07] MEDS: ATORVASTATIN 20 MG TAB PO SCH (20:40)
[2019-07-07] MEDS: VENLAFAXINE HCL ER 150 MG CAP PO SCH (20:40)
[2019-07-08] MEDS: methylPREDNISolone SOD SUCCI 125 MG/2 ML VIAL IV SCH ×2 (05:25→11:22)
[2019-07-08 06:52] LABS: Glucose,Whole Blood 179 mg/dL (75-99)
[2019-07-08] MEDS: INSULIN ASPART (NovoLOG) 100 UNIT/ML VIAL SQ SCH ×4 (07:20→20:14)
[2019-07-08] MEDS: ACETAMINOPHEN TAB 325 MG TAB PO PRN ×2 (07:21→14:03)
[2019-07-08] MEDS: AMPHETAMINE PO SCH (07:24)
[2019-07-08] MEDS: DEXTROAMPHETAMINE PO SCH (07:24)
[2019-07-08] MEDS: PSEUDOEPHEDRINE 30 MG TAB PO SCH ×3 (07:29→21:17)
[2019-07-08] MEDS: PANTOPRAZOLE 40 MG/10 ML VIAL IVP SCH ×2 (07:29→20:28)
[2019-07-08] MEDS: LORATADINE 10 MG TAB PO SCH (07:29)
[2019-07-08 07:47] LABS: Basophils % (A) 0 %; Eosinophils % (A) 0 %; HCT 36.9 % (34.0-46.0); Lymphocytes # (A) 0.7 k/uL (1.0-4.8); Lymphocytes % (A) 8 %; MCH 31.3 pg (25.0-35.0); MCHC 32.4 g/dL (31.0-37.0); MCV 96.7 fL (80.0-100.0); Mean Platelet Volume 7.5; Monocytes # (A) 0.3 k/uL (0-1.0); Monocytes % (A) 3 %; Neutrophils # (A) 7.8 k/uL (1.3-7.7); Neutrophils % (A) 88 %; Platelet Count 302 k/uL (150-450); RBC 3.81 m/uL (3.80-5.40); RDW 14.2 % (11.5-15.5); WBC 8.8 k/uL (3.8-10.6)
[2019-07-08 07:55] LABS: African American GFR (CKD) >90 (>60 ml/min/1.73 sqM); Anion Gap 8 mmol/L; Blood Urea Nitrogen 18 mg/dL (7-17); Calcium 9.7 mg/dL (8.4-10.2); Carbon Dioxide 24 mmol/L (22-30); Chloride 106 mmol/L (98-107); Glucose 171 mg/dL (74-99); Non-African American GFR(CKD) 80 (>60 ml/min/1.73 sqM); Potassium 4.5 mmol/L (3.5-5.1); Sodium 138 mmol/L (137-145)
[2019-07-08] MEDS: IPRATROPIUM-ALBUTEROL 3 ML NEB INHALATION SCH ×4 (08:30→20:44)
[2019-07-08] MEDS: THYROID, PORK 30 MG TAB PO SCH (09:41)
[2019-07-08 11:30] LABS: Glucose,Whole Blood 142 mg/dL (75-99)
--- NOTE | 2019-07-08 13:25 | P.PN ---
Subjective Progress Note Date: 07/08/19 This is a 58-year-old female patient, morbidly obese, previous history of psychiatric disorder including schizoaffective disorder and ADD, diabetic and has hypothyroidism and hyperlipidemia, and she Has a BMI 53.6. No personal or family history of DVT or pulmonary embolism. The patient has chronic exertional dyspnea and typically she gets short of breath with limited amount of activity. Over the past few weeks she has expiratory is worsening shortness of breath. No pleurisy. No hemoptysis. No chest pain. No leg edema. Pain or tenderness. She came into the emergency department and she had a troponin within normal limits, BNP level of 32, d-dimer of 0.77 and for that reason a CT angiogram was ordered. The CT angiogram raises the possibility of a subsegmental left lower lobe filling defect consistent with pulmonary embolism and for that reason the patient was started on IV heparin. Note that the Doppler of the lower extremities of been negative. The patient is a bit anxious pH is short of breath. 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 He did the job at the age of 16 for only [address]ogram also raised the possibility of around last changes and for that reason I'm going to proceed with a high resolution computed tomography scan of the chest to make sure there is no possibility of an underlying interstitial lung disease. No anemia. Currently on IV heparin. Days evaluation of 07/07/2019 I'm seeing the patient for a follow-up. The patient is on IV heparin regarding subsegmental pulmonary embolism in the left lower lobe. High resolution computed tomography scan of the chest was done and showed some minimal interstitial changes in lung bases more so on the right. The patient's echocardiogram showed a preserved LV function with mild to moderate degree of pulmonary hypertension with a PA pressure in the low 40 range. No nausea. No vomiting. No abdominal pain. Less anxious on today's evaluation. 07/08/2019 I'm seeing the patient feeling better and she is gradually improving. She is still on IV Solu-Medrol and she is also on IV heparin. Less bronchospastic. Less wheezy. No bleeding complications. She has been approved for EliTravelmenu and she'll be switched today. Echo was noted. HRCT of the chest was noted. CT angiogram was noted. No new complaints patient is on room air oxygen. She is less short of breath. Possible discharge in a.m. depending in the condition. Objective - Vital Signs Vital signs: Vital Signs Temp 97.9 F 07/08/19 07:00 Pulse 69 07/08/19 07:00 Resp 16 07/08/19 07:00 BP 154/71 07/08/19 07:00 Pulse Ox 92 L 07/08/19 07:00 Intake & Output 07/07/19 07/08/19 07/08/19 18:59 06:59 18:59 Intake Total 1582.591 616.874 455.132 Balance 1582.591 616.874 455.132 Intake: IV 600 Sodium Chloride 0.9% 1, 600 000 ml @ 75 mls/hr IV . [id number] [facility] Rx#:[id number] Intake, IV Titration 182.591 136.874 137.132 Amount Heparin Sod,Pork in 0.45% 182.591 136.874 137.132 NaCl 25,000 unit In 0.45 % NaCl 1 250ml.bag @ 15. 273 UNITS/KG/HR 23 mls/hr IV .[id number] [facility] Rx#: [id number] Oral 800 480 318 Other: Voiding Method Toilet Toilet # Voids 3 - Exam Morbidly obese, comfortable likely distress care is a BMI of 53.6. Head exam was generally normal. There was no scleral icterus or corneal arcus. Mucous membranes were moist. Neck was supple and without jugular venous distension, thyromegaly, or carotid bruits. Carotids were easily palpable bilaterally. There was no adenopathy. Lymphatic less for Lungs were clear to auscultation and percussion, and with normal diaphragmatic excursion. No wheezes or rales were noted. Breath sounds are diminished in the lung bases. No wheezes or rhonchi or crackles. Cardiac exam revealed the PMI to be normally situated and sized. The rhythm was regular and no extrasystoles were noted during several minutes of auscultation. The first and second heart sounds were normal and physiologic splitting of the second heart sound was noted. There were no murmurs, rubs, clicks, or gallops. Abdomen is obese and the patient also cannot be accurately palpated. No direct tenderness about this or guarding. No organomegaly. Examination of the extremities revealed easily palpable radial, femoral and pedal pulses. There was no cyanosis, clubbing or edema. Examination of the skin revealed no evidence of significant rashes, suspicious appearing nevi or other concerning lesions. Neurologically she is awake and alert is no focal nodularity deficit. - Labs CBC & Chem 7: 07/08/19 06:47 07/08/19 06:47 Labs: Abnormal Lab Results - Last 24 Hours (Table) 07/07/19 07/07/19 07/07/19 Range/Units 13:57 16:50 20:23 Neutrophils # (1.3-7.7) k/uL Lymphocytes # (1.0-4.8) k/uL APTT 63.6 H (22.0-30.0) sec BUN (7-17) mg/dL Glucose (74-99) mg/dL POC Glucose (mg/dL) 169 H 216 H (75-99) mg/dL 07/08/19 07/08/19 07/08/19 Range/Units 06:47 06:47 06:47 Neutrophils # 7.8 H (1.3-7.7) k/uL Lymphocytes # 0.7 L (1.0-4.8) k/uL APTT 50.8 H (22.0-30.0) sec BUN 18 H (7-17) mg/dL Glucose 171 H (74-99) mg/dL POC Glucose (mg/dL) (75-99) mg/dL 07/08/19 07/08/19 Range/Units 06:51 11:29 Neutrophils # (1.3-7.7) k/uL Lymphocytes # (1.0-4.8) k/uL APTT (22.0-30.0) sec BUN (7-17) mg/dL Glucose (74-99) mg/dL POC Glucose (mg/dL) 179 H 142 H (75-99) mg/dL Assessment and Plan Plan: 1 acute unprovoked left lower lobe pulmonary embolism with subsegmental filling defect in the left lower lobe pulmonary artery branches. Doppler of the lower extremities negative. D-dimer is a mildly elevated 2 minimal interstitial changes in lung bases, consider underlying interstitial lung disease/fibrosis. 3 morbid obesity with a BMI of 53 4 chronic exertional dyspnea, he shouldn't had some limited bronchospasm wheezing and she responded nicely to systemic steroids. 5 diabetes mellitus 6 hypertension 7 hypothyroidism 8 schizoaffective disorder 9 ADD 10 OCD Plan Discontinue the IV heparin and put the patient on Eliquis 10 mg by mouth twice a day for a week and then drop it down to 5 mg twice a day. This continued IV Solu-Medrol and start the patient prednisone burst taper. Ambulate in the h allway. Possible discharge in the next 24 hours. Outpatient follow-up for all this problem in addition to the possibility of obstructive sleep apnea.
[2019-07-08] MEDS: APIXABAN 5 MG TAB PO SCH ×2 (13:52→20:31)
[2019-07-08] MEDS: NON FORMULARY DRUG (Dextroamphetamine/Amphetamine [Adderall] 30 MG) PO SCH (14:51)
[2019-07-08] MEDS: HEPARIN SOD,PORK IN 0.45% NACL 25,000 UNIT in 0.45% NACL 1 250ML.BAG IV SCH (14:57)
[2019-07-08 16:45] LABS: Glucose,Whole Blood 141 mg/dL (75-99)
--- NOTE | 2019-07-08 18:44 | PN ---
PROGRESS NOTE DATE OF SERVICE: 07/08/2019 This 58-year-old woman who was admitted with shortness of breath, multifactorial, had acute pulmonary edema. The patient also had some bronchospasm. Dr. Childers is following the patient closely. Heparin is being transitioned to Eliquis. The blood sugar is also mildly elevated. PAST MEDICAL HISTORY: Reviewed. REVIEW OF SYSTEMS: CARDIOVASCULAR: No angina. RESPIRATORY: As mentioned earlier. GI: As mentioned earlier. : No dysuria. NERVOUS SYSTEM: No numbness or weakness. CURRENT MEDICATIONS: 1. Tylenol 650 q.6h p.r.n. 2. Maalox. 3. DuoNeb q.i.d. p.r.n. 4. Eliquis 10 mg p.o. b.i.d. 5. Lipitor 20 mg q.h.s. 6. Rocephin 1 g daily. 7. Estrace cream. 8. Neurontin. 9. NovoLog. 10.Claritin. 11.Ativan. 12.Narcan. 13.Protonix. 14.Prednisone. 15.Sudafed. 16.Seroquel. 17.[place] Thyroid. 18.Effexor. Doses reviewed. PHYSICAL EXAMINATION: Alert and oriented x3. Pulse is 64, blood pressure 117/64, respirations 16, temperature 98.2, pulse ox 94% on 2 L. Breathing efforts are markedly increased. Accessory muscle of respiration are acting at this time. HEENT: Conjunctivae normal. Oral mucosa moist. NECK: No jugular venous distention. No lymph node enlargement. CARDIOVASCULAR: S1, S2. RESPIRATORY: Diminished breath sounds at the bases. Bilateral scattered rhonchi and crackles. ABDOMEN: Soft, obese, nontender. LEGS: No swelling. NERVOUS SYSTEM: Higher functions mentioned earlier. Moves all four limbs. No focal deficits. LYMPHATICS: No lymph node in neck or axilla. SKIN: No rash. JOINTS: No active deforming arthropathy. LABS: CBC within normal limits. Glucose 179. ASSESSMENT: 1. Shortness of breath, possibly acute pulmonary embolism in the left side. 2. Possible interstitial lung disease versus fibrosis versus interstitial pneumonia. 3. Rule out bronchial asthma. 4. Significant shortness of breath. 5. Abdominal pain with possible acute gastritis. 6. Elevated D-dimer, 0.77. 7. Super morbid obesity with body mass index of 53.6. 8. History of diabetes type 2. 9. Hypertension. 10.Hyperlipidemia. 11.Hypothyroidism. 12.History of hysterectomy. 13.History of attention deficit disorder/attention deficit hyperactive disorder. 14.History of schizophrenia and schizoaffective disorder. 15.Passive smoking exposure. 16.Remote history of nicotine dependence in childhood. 17.FULL CODE. RECOMMENDATIONS AND DISCUSSION: Recommend to continue current medications, continue to monitor, continue symptomatic treatment. Otherwise, at this time I recommend continue with current medication. Continue with antibiotics. Continue the bronchodilators. Continue steroids. Continue with Eliquis. Guarded prognosis because of multiple complex medical issues. I would also recommend increase ambulation and home O2 as well. Evaluate home O2 and pulse ox after ambulation as well. Prognosis guarded. Further recommendations to follow. MMKAMARL / MARIANNAN: [id number] /
[2019-07-08 20:05] LABS: Glucose,Whole Blood 210 mg/dL (75-99)
[2019-07-08] MEDS: CARIPRAZINE HCL 6 MG PO SCH (20:13)
[2019-07-08] MEDS: GABAPENTIN 400 MG CAP PO SCH (20:28)
[2019-07-08] MEDS: QUEtiapine 25 MG TAB PO SCH (20:29)
[2019-07-08] MEDS: VENLAFAXINE HCL ER 150 MG CAP PO SCH (20:29)
[2019-07-08] MEDS: ATORVASTATIN 20 MG TAB PO SCH (20:29)
[2019-07-09 07:16] LABS: Glucose,Whole Blood 93 mg/dL (75-99)
[2019-07-09] MEDS: INSULIN ASPART (NovoLOG) 100 UNIT/ML VIAL SQ SCH ×2 (07:22→11:21)
[2019-07-09] MEDS: AMPHETAMINE PO SCH (07:41)
[2019-07-09] MEDS: DEXTROAMPHETAMINE PO SCH (07:41)
[2019-07-09 08:33] VITALS: BP 144/78; RESP 20; TEMP 98.2
[2019-07-09] MEDS: IPRATROPIUM-ALBUTEROL 3 ML NEB INHALATION SCH ×3 (08:33→12:14)
[2019-07-09] MEDS: THYROID, PORK 30 MG TAB PO SCH (08:38)
[2019-07-09] MEDS: LORATADINE 10 MG TAB PO SCH (08:38)
[2019-07-09] MEDS: PSEUDOEPHEDRINE 30 MG TAB PO SCH (08:38)
[2019-07-09] MEDS: APIXABAN 5 MG TAB PO SCH (08:38)
[2019-07-09] MEDS: PANTOPRAZOLE 40 MG/10 ML VIAL IVP SCH (08:38)
[2019-07-09] MEDS ORDERED: predniSONE 20 MG TAB PO SCH (09:00)
[2019-07-09 11:15] LABS: Glucose,Whole Blood 103 mg/dL (75-99)
[2019-07-09] MEDS: NON FORMULARY DRUG (Dextroamphetamine/Amphetamine [Adderall] 30 MG) PO SCH (11:22)
[2019-07-09 12:02] LABS: Glucose,Whole Blood 103 mg/dL (75-99)
[2019-07-09 12:20] LABS: Glucose,Whole Blood 138 mg/dL (75-99)
[2019-07-09 12:25] VITALS: PULSE 88
--- NOTE | 2019-07-09 12:28 | P.PN ---
Subjective Progress Note Date: 07/09/19 Principal diagnosis: Acute unprovoked left lower lobe pulmonary embolism in the left lower lobe pulmonary artery branches On 07/09/2019 patient seen in follow-up on medical surgical floor. She states her breathing is improving, still gets short of breath with exertion, but has been able to ambulate with assistance. Denies any chest pain, no hemoptysis, states she feels better with oxygen on, however home oxygen assessment did not qualify the patient for home oxygen. Room air pulse ox is 96%, ambulation O2 sat went down to 91%, lung sounds reveal a few scattered basilar rales, no rhonchi or wheezing, patient has been started on Eliquis, by drip has been discontinued, echocardiogram has been reviewed showing preserved left ventricular systolic function with EF of 60-65% and no evidence of RV strain. Patient has been treated with nebulized bronchodilators, IV steroids and antibiotics, likely improved, and discharge is pending today. Objective - Vital Signs Vital signs: Vital Signs Temp 98.2 F 07/09/19 07:00 Pulse 80 07/09/19 12:14 Resp 20 07/09/19 08:38 BP 144/78 07/09/19 07:00 Pulse Ox 95 07/09/19 09:10 Intake & Output 07/08/19 07/09/19 07/09/19 18:59 06:59 18:59 Intake Total 677.132 580 Balance 677.132 580 Intake: Intake, IV Titration 137.132 Amount Heparin Sod,Pork in 0.45% 137.132 NaCl 25,000 unit In 0.45 % NaCl 1 250ml.bag @ 15. 273 UNITS/KG/HR 23 mls/hr IV .[id number] [facility] Rx#: [id number] Oral 540 580 Other: Voiding Method Toilet Toilet # Voids 2 1 - Exam GENERAL EXAM: Alert, pleasant, 58-year-old obese white female with a pulse ox of 96% on room air comfortable in no apparent distress. HEAD: Normocephalic/atraumatic. EYES: Normal reaction of pupils, equal size. Conjunctiva pink, sclera white. NOSE: Clear with pink turbinates. THROAT: No erythema or exudates. NECK: No masses, no JVD, no thyroid enlargement, no adenopathy. CHEST: No chest wall deformity. Symmetrical expansion. LUNGS: Equal air entry with basilar crackles, wheeze, rhonchi or dullness. CVS: Regular rate and rhythm, normal S1 and S2, no gallops, no murmurs, no rubs ABDOMEN: Soft, nontender. No hepatosplenomegaly, normal bowel sounds, no guarding or rigidity. EXTREMITIES: No clubbing, no edema, no cyanosis, 2+ pulses and upper and lower extremities. MUSCULOSKELETAL: Muscle strength and tone normal. SPINE: No scoliosis or deformity SKIN: No rashes CENTRAL NERVOUS SYSTEM: Alert and oriented -3. No focal deficits, tone is normal in all 4 extremities. PSYCHIATRIC: Alert and oriented -3. Appropriate affect. Intact judgment and insight. - Labs CBC & Chem 7: 07/08/19 06:47 07/08/19 06:47 Labs: Abnormal Lab Results - Last 24 Hours (Table) 07/08/19 07/08/19 07/09/19 Range/Units 16:42 20:04 11:11 POC Glucose (mg/dL) 141 H 210 H 103 H (75-99) mg/dL 07/09/19 07/09/19 Range/Units 12:00 12:18 POC Glucose (mg/dL) 103 H 138 H (75-99) mg/dL Assessment and Plan Plan: Assessment: 1 acute unprovoked left lower lobe pulmonary embolism with subsegmental filling defect in the left lower lobe pulmonary artery branches. Doppler of the lower extremities negative. D-dimer is a mildly elevated 2 minimal interstitial changes in lung bases, consider underlying interstitial lung disease/fibrosis. 3 morbid obesity with a BMI of 53 4 chronic exertional dyspnea, he shouldn't had some limited bronchospasm wheezing and she responded nicely to systemic steroids. 5 diabetes mellitus 6 hypertension 7 hypothyroidism 8 schizoaffective disorder 9 ADD 10 OCD Plan: Increase activity as tolerated, steroids have been transitioned to oral prednisone, IV heparin switched to oral Eliquis, echocardiogram results have been reviewed, showing preserved left ventricle systolic function, and no evidence of ventricular strain. Vital signs are stable, patient is tolerating ambulation, still has some exertional dyspnea, but recovers well, does not qualify for home oxygen, from pulmonary perspective she stable for discharge home today with outpatient follow-up with Dr. Childers in 1 or 2 weeks I performed a history & physical examination of the patient and discussed their management with my nurse practitioner, Cadence Goodman. I reviewed the nurse practitioner's note and agree with the documented findings and plan of care. Lung sounds are positive for a few basilar rales. The findings and the impression was discussed with the patient. I attest to the documentation by the nurse practitioner. Time with Patient: Less than 30
--- NOTE | 2019-07-09 12:32 | P.DS ---
Providers Date of admission: 07/07/19 14:28 Expected date of discharge: 07/09/19 Attending physician: Susie Toro Consults: 07/05/19 18:58 Consult Physician Routine Consulting Provider: Gina Childers Consult Reason/Comments: sob, PE Do you want consulting provider notified?: Yes [facility] Course: Final diagnosis Shortness of breath, possible acute pulmonary embolism in the left side Possible interstitial lung disease versus fibrosis versus interstitial pneumonia Rule out bronchial asthma Significant shortness of breath Abdominal pain with possible acute gastritis Elevated d-dimer, 0.77 Super morbid obesity with a body mass index of 53.6 History of diabetes mellitus type 2 Hypertension Hyperlipidemia Hypothyroidism history of hysterectomy History of attention deficit disorder, attention deficit hyperactivity disorder History of schizophrenia and schizoaffective disorder Passive smoking exposure Remote history of nicotine dependence and childhood Full code Discharge disposition Patient being discharged in a stable condition with guarded prognosis to home and will follow-up with primary care provider Jamari Castro upon discharge. Patient will also follow-up with pulmonary Dee Belle is scheduled in one week. Patient will continue on prednisone taper, oral antibiotics in the form of Ceftin 500 mg twice daily for the next 4 days, along with Eliquis 10mg twice daily for one week and then transition to 5mg twice daily. Total time taken is 35 minutes. History of present illness This is a 58-year-old female who was recently admitted for shortness of breath, multifactorial, and also found to have acute pulmonary edema and was being closely monitored. Patient was also having some bronchospasms. Pulmonary was following. During hospitalization patient underwent a CTA and was found to have a pulmonary embolism in the subsegmental branch of the left lower lobe pulmonary artery posterior basal segment and patient was placed on a heparin drip. Patient will continue on anticoagulation in the form of Eliquis in the outpatient setting. Patient also underwent bilateral lower extremity Doppler showing no DVTs in the left or right lower extremities. Patient also underwent an echo showing LV systolic function normal with an EF of 60-65% with some mild tricuspid regurgitation present along with mild pulmonary hypertension. Currently patient's condition is stable but home today. Patient denies any chest pain, shortness of breath, or palpitations at this time. Patient has been afebrile. Patient denies any nausea or vomiting and has been tolerating diet. As discussed previously patient will follow-up with pulmonary in the outpatient setting in 1 week or was instructed to call them sooner if symptoms persist or worsen. Guarded prognosis. On exam vital signs are stable. Temp is 98.2F, pulse is 80, respirations are 20, blood pressure is 144/78, oxygen saturation is 96% on room air. Cardio S1, S2 are muffled. Respiratory system shows diminished breath sounds at the bases with a few scattered rhonchi and crackles noted. Abdomen is soft, obese, nontender. Nervous system shows no focal deficits. Please refer to medication reconciliation sheet for a list of medications. Patient Condition at Discharge: Stable Plan - Discharge Summary Discharge Rx Participant: Yes New Discharge Prescriptions: New Cefuroxime Axetil [Ceftin] 500 mg PO BID 4 Days #8 tab Apixaban [Eliquis] 10 mg PO BID 30 Days #70 tab predniSONE 10 mg PO DIRECTED #30 tab Pseudoephedrine [Sudafed] 30 mg PO TID 7 Days #21 tab Continue Cariprazine HCl [Vraylar] 6 mg PO HS Albuterol Sulfate [Ventolin HFA] 1 - 2 puff INHALATION RT-Q4H PRN PRN Reason: Shortness Of Breath traZODone HCL 150 mg PO HS Venlafaxine HCl [Effexor XR] 300 mg PO HS QUEtiapine [SEROquel] 25 mg PO HS Atorvastatin [Lipitor] 20 mg PO HS Pantoprazole Sodium [Protonix] 40 mg PO BID Gabapentin [Neurontin] 1,200 mg PO HS Estradiol Cream [Estrace Cream 0.01%] 1 gm VAGINAL WE Thyroid,Pork [[place] Thyroid] 90 mg PO DAILY Dextroamphetamine/Amphetamine [Adderall] 60 mg PO DAILY@0800 Dextroamphetamine/Amphetamine [Adderall] 30 mg PO DAILY@1500 Cetirizine HCl [Zyrtec] 10 mg PO DAILY Discharge Medication List Albuterol Sulfate [Ventolin HFA] 1 - 2 puff INHALATION RT-Q4H PRN 07/05/19 [History] Atorvastatin [Lipitor] 20 mg PO HS 07/05/19 [History] Cariprazine HCl [Vraylar] 6 mg PO HS 07/05/19 [History] Cetirizine HCl [Zyrtec] 10 mg PO DAILY 07/05/19 [History] Dextroamphetamine/Amphetamine [Adderall] 30 mg PO DAILY@1500 07/05/19 [History] Dextroamphetamine/Amphetamine [Adderall] 60 mg PO DAILY@0800 07/05/19 [History] Estradiol Cream [Estrace Cream 0.01%] 1 gm VAGINAL WE 07/05/19 [History] Gabapentin [Neurontin] 1,200 mg PO HS 07/05/19 [History] Pantoprazole Sodium [Protonix] 40 mg PO BID 07/05/19 [History] QUEtiapine [SEROquel] 25 mg PO HS 07/05/19 [History] Thyroid,Pork [[place] Thyroid] 90 mg PO DAILY 07/05/19 [History] Venlafaxine HCl [Effexor XR] 300 mg PO HS 07/05/19 [History] traZODone HCL 150 mg PO HS 07/05/19 [History] Apixaban [Eliquis] 10 mg PO BID 30 Days #70 tab 07/09/19 [Rx] Cefuroxime Axetil [Ceftin] 500 mg PO BID 4 Days #8 tab 07/09/19 [Rx] Pseudoephedrine [Sudafed] 30 mg PO TID 7 Days #21 tab 07/09/19 [Rx] predniSONE 10 mg PO DIRECTED #30 tab 07/09/19 [Rx] Follow up Appointment(s)/Referral(s): Dee Belle NPC [Nurse Practitioner] - 07/24/19 2:45 pm Jamari Castro MD [Primary Care Provider] - 07/11/19 1:30 pm Patient Instructions/Handouts: Pulmonary Embolism (ED) Activity/Diet/Wound Care/Special Instructions: Activity Limited until follow-up Follow-up with primary care provider upon discharge Continue current diet Follow-up with pulmonary in one week as discussed Continue antibiotics until finished Continue with prednisone taper until finished Continue with Eliquis 10 mg twice daily for 1 week and then start 5 mg twice daily Discharge Disposition: HOME SELF-CARE
[2019-07-11] MEDS ORDERED: ESTRADIOL 0.1 MG/GM VAGINAL CREAM 42.5 GM TUBE VAGINAL SCH (09:00)
== END 2019-07-09 13:40 | disposition home or self-care (01) | DRG 175 ==
LOC: EC 15:26 → 4SSUR 18:07 → OBSVTOIN 07-07 14:28
PROVIDERS: ADMIT Hospitalist; ATTEND Hospitalist
DX: I26.93 Single subsegmental thrombotic pulmonary embolism without acute cor pulmonale (principal); J81.0 Acute pulmonary edema; Z68.43 Body mass index [BMI] 50.0-59.9, adult; J84.9 Interstitial pulmonary disease, unspecified; E03.9 Hypothyroidism, unspecified; E11.9 Type 2 diabetes mellitus without complications; E66.01 Morbid (severe) obesity due to excess calories; E78.00 Pure hypercholesterolemia, unspecified; E78.5 Hyperlipidemia, unspecified; F25.9 Schizoaffective disorder, unspecified; F41.9 Anxiety disorder, unspecified; F42.9 Obsessive-compulsive disorder, unspecified; I10 Essential (primary) hypertension; I27.20 Pulmonary hypertension, unspecified; Z87.01 Personal history of pneumonia (recurrent); J98.01 Acute bronchospasm; M81.0 Age-related osteoporosis without current pathological fracture; Z77.22 Contact with and (suspected) exposure to environmental tobacco smoke (acute) (chronic); Z79.01 Long term (current) use of anticoagulants; Z79.899 Other long term (current) drug therapy; Z82.49 Family history of ischemic heart disease and other diseases of the circulatory system; Z87.891 Personal history of nicotine dependence; Z90.710 Acquired absence of both cervix and uterus
CPT/HCPCS: 36415; 71046; 71250; 71275; 80048; 80053; 83880; 84145; 84484; 85025; 85379; 85610; 85730; 93005; 93306; 93970; 94640; 94760; 96365; 96372; 96376; 99285

== ENCOUNTER 2019-10-06 19:36 | Emergency (ER) | payer MEDICARE ==
[2019-10-06 19:49] VITALS: TEMP 98
--- NOTE | 2019-10-06 19:50 | ED ---
General Adult HPI - General Chief complaint: Extremity Injury, Lower Stated complaint: Extremity Pain Time Seen by Provider: 10/06/19 19:44 Source: patient Mode of arrival: EMS Limitations: no limitations - History of Present Illness Initial comments: Patient presents the ED by ambulance for evaluation. Patient states that she has had left posterior knee pain for the past week or so, and she is concerned that she may have a "blood clot". Patient states that she also has a history of arthritis in her left knee. Patient is currently on Eliquis anticoagulation therapy, and she states that she has been taking it regularly/daily as prescribed. Patient denies trauma or injury, fever or chills, leg swelling, headache, focal neuro deficit, chest pain, dyspnea, dizziness, vomiting, back pain, or any other symptoms or complaints. - Related Data Home Medications Medication Instructions Recorded Confirmed Albuterol Sulfate [Ventolin HFA] 1 - 2 puff INHALATION RT-Q4H PRN 07/05/19 07/05/19 Atorvastatin [Lipitor] 20 mg PO HS 07/05/19 07/05/19 Cariprazine HCl [Vraylar] 6 mg PO HS 07/05/19 07/05/19 Cetirizine HCl [Zyrtec] 10 mg PO DAILY 07/05/19 07/05/19 Dextroamphetamine/Amphetamine 30 mg PO DAILY@1500 07/05/19 07/05/19 [Adderall] Dextroamphetamine/Amphetamine 60 mg PO DAILY@0800 07/05/19 07/05/19 [Adderall] Estradiol Cream [Estrace Cream 1 gm VAGINAL WE 07/05/19 07/05/19 0.01%] Gabapentin [Neurontin] 1,200 mg PO HS 07/05/19 07/05/19 Pantoprazole Sodium [Protonix] 40 mg PO BID 07/05/19 07/05/19 QUEtiapine [SEROquel] 25 mg PO HS 07/05/19 07/05/19 Thyroid,Pork [[place] Thyroid] 90 mg PO DAILY 07/05/19 07/05/19 Venlafaxine HCl [Effexor XR] 300 mg PO HS 07/05/19 07/05/19 traZODone HCL 150 mg PO HS 07/05/19 07/05/19 Previous Rx's Medication Instructions Recorded Albuterol Inhaler [Ventolin Hfa 1 - 2 puff INHALATION RT-Q6H PRN 07/09/19 Inhaler] 30 Days #1 inhaler Apixaban [Eliquis] 10 mg PO BID 30 Days #70 tab 07/09/19 Cefuroxime Axetil [Ceftin] 500 mg PO BID 4 Days #8 tab 07/09/19 Pseudoephedrine [Sudafed] 30 mg PO TID 7 Days #21 tab 07/09/19 predniSONE 10 mg PO DIRECTED #30 tab 07/09/19 Allergies Allergy/AdvReac Type Severity Reaction Status Date / Time codeine Allergy Nausea & Verified 10/06/19 19:49 Vomiting oxcarbazepine Allergy Rash/Hives Verified 10/06/19 19:49 [From Trileptal] Review of Systems ROS Statement: Those systems with pertinent positive or pertinent negative responses have been documented in the HPI. ROS Other: All systems not noted in ROS Statement are negative. Past Medical History Past Medical History: Diabetes Mellitus, Hyperlipidemia, Thyroid Disorder Additional Past Medical History / Comment(s): Osteoporosis, ADD, OCD, schizoaffective disorder, hypothyroid, osteoporosis, obesity, hyperlipidemia. 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 age of 16 worked for [employer] and exposure to silica and jacobo dust History of Any Multi-Drug Resistant Organisms: None Reported Past Surgical History: Hysterectomy Additional Past Surgical History / Comment(s): endometrosis surgeries x2 Past Anesthesia/Blood Transfusion Reactions: No Reported Reaction, Blood Transfusion Reaction Additional Past Anesthesia/Blood Transfusion Reaction / Comment(s): PAtient wants no blood transfusions Past Psychological History: ADD/ADHD, Schizoaffective Disorder, Schizophrenia Smoking Status: Former smoker Past Alcohol Use History: None Reported Past Drug Use History: None Reported - Past Family History Mother Additional Family Medical History / Comment(s): mirna from Father Family Medical History: Myocardial Infarction ([place]) Additional Family Medical History / Comment(s): at 67 General Exam Limitations: no limitations General appearance: alert, in no apparent distress Head exam: Present: atraumatic, normocephalic Eye exam: Present: normal appearance, EOMI ENT exam: Present: mucous membranes moist Respiratory exam: Present: normal lung sounds bilaterally. Absent: respiratory distress, wheezes, rales, rhonchi Cardiovascular Exam: Present: regular rate, normal rhythm, normal heart sounds, other (Normal radial pulses bilaterally; normal left dorsalis pedis pulse) GI/Abdominal exam: Present: soft, other (Patient is obese). Absent: tenderness Extremities exam: Present: full ROM, other (Left posterior knee and calf tenderness). Absent: pedal edema Back exam: Absent: tenderness Neurological exam: Present: alert, oriented X3. Absent: motor sensory deficit Psychiatric exam: Present: normal affect, normal mood Skin exam: Present: warm, dry, intact, normal color Course Vital Signs 10/06/19 19:43 Temperature 98.0 F Pulse Rate 75 Respiratory 20 Rate Blood Pressure 135/79 O2 Sat by Pulse 96 Oximetry Medical Decision Making - Medical Decision Making Patient denies development of any new symptoms while in the ED. Patient is aware of her negative left lower extremity Doppler ultrasound and her left knee x-ray findings. Patient was counseled about knee pain and arthritis. Patient was clearly explained return and follow-up instructions. Patient was instructed to return to the ED should she develop new or worsening pain, fever, chest pain, shortness of breath, feeling dizzy or faint, or new or worsening symptoms. Patient was instructed to follow up closely with her primary care provider. Patient feels comfortable with this plan. - Radiology Data Radiology results: report reviewed (Left lower extremity Doppler ultrasound is negative for DVT), image reviewed (Left knee x-rays show degenerative changes, but are negative for acute fracture or dislocation) Disposition Clinical Impression: Left knee pain, Arthritis of left knee Disposition: HOME SELF-CARE Condition: Stable Instructions (If sedation given, give patient instructions): Osteoarthritis (ED), Knee Pain (ED) Additional Instructions: Return to the emergency room immediately should you develop new or worsening pain, fever, chest pain, shortness of breath, feeling dizzy or faint, or new or worsening symptoms. Follow up closely with your primary care provider. Is patient prescribed a controlled substance at d/c from ED?: No Referrals: Nonstaff,Physician [Primary Care Provider] - 1-2 days Time of Disposition: 21:31
--- NOTE | 2019-10-06 20:14 | XR ---
EXAMINATION TYPE: XR knee complete LT DATE OF EXAM: 10/06/2019 COMPARISON: 07/06/2019 HISTORY: Left knee pain TECHNIQUE: Three-view left knee FINDINGS: No joint effusion is evident. There is narrowing of the medial compartment joint space. Tib ial plateau spurring medially and medial femoral condylar spurring is present. Findings present previ ously. No acute fractures or dislocations are evident. IMPRESSION: 1. Moderate osteoarthritic degenerative change medial compartment left knee. 2. No acute osseous abnormality.
--- NOTE | 2019-10-06 20:43 | US ---
EXAMINATION TYPE: US venous doppler duplex LE LT DATE OF EXAM: 10/06/2019 8:34 PM COMPARISON: NONE CLINICAL HISTORY: left posterior knee pain, R/O DVT. SIDE PERFORMED: Left TECHNIQUE: The lower extremity deep venous system is examined utilizing real time linear array sonog betty with graded compression, doppler sonography and color-flow sonography. VESSELS IMAGED: External Iliac Vein (EIV) Common Femoral Vein Deep Femoral Vein Greater Saphenous Vein * Femoral Vein Popliteal Vein Small Saphenous Vein * Proximal Calf Veins, not seen due to obesity (* superficial vessels) Morbidly obese patient. Technically difficult study. Left Leg: Negative for DVT. IMPRESSION: 1. Left lower extremity ultrasound negative for deep venous thrombosis as visualized. There was some technical limitation present during the exam
[2019-10-06 21:54] VITALS: BP 141/72; PULSE 72; RESP 18
== END 2019-10-06 22:05 | disposition home or self-care (01) ==
LOC: EC 19:36
DX: M17.12 Unilateral primary osteoarthritis, left knee (principal); M79.662 Pain in left lower leg; E66.9 Obesity, unspecified; E11.9 Type 2 diabetes mellitus without complications; E03.9 Hypothyroidism, unspecified; E78.5 Hyperlipidemia, unspecified; M81.0 Age-related osteoporosis without current pathological fracture; F90.9 Attention-deficit hyperactivity disorder, unspecified type; F25.9 Schizoaffective disorder, unspecified; Z79.890 Hormone replacement therapy; Z79.899 Other long term (current) drug therapy; Z79.01 Long term (current) use of anticoagulants; Z88.5 Allergy status to narcotic agent; Z88.8 Allergy status to other drugs, medicaments and biological substances; Z87.891 Personal history of nicotine dependence; Z68.43 Body mass index [BMI] 50.0-59.9, adult
CPT/HCPCS: 99284

== ENCOUNTER → 2020-02-13 | Outpatient (CLI) | payer MEDICARE ==
--- NOTE | 2020-02-13 13:50 | P.HPBAR ---
Bariatric H&P - History & Physicial H&P Date: 02/13/20 History & Physicial: Visit/CC: initial clinic visit Patient initial contact: Initial weight: Initial weight in pounds: Height: 5 ft 6 in Initial BMI: Last weight: Current weight: 169.644 kg Current weight in pounds: 374.00 Current BMI: 60.3 [place] body weight (based on NIH guidelines): 58.967 kg Excess body weight loss: The patient is a 59 year-old F who presents for Bariatric Assessment. She comes in for weight loss and has lost weight in past. She lost 100 pounds at age 40 pounds through calorie restriction and exercise in [address] Ledesma. She needs both knee replacement. She is looking for [facility] for weight loss. Highest weight is at present. She reports GERD and takes medication, Omeprazole 40 mg BID. She has extensive pelvic surgery for endometriosis. She has hiatal hernia and had past EGD. She had an EGD. Recommend EGD. My brother half with stomach cancer. No esophageal cancer. No chronic diarrhea. No hip pain with osteoarthritis. She needs Colonoscopy with EGD. Esophogram. She reports dysphagia with dry foods with dry eggs and beef. 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 She has medicare. No weight watchers. Mother and sister has troubles with weight. Has schizophrenia and needs psych. She has gallbladder problems. She is looking into band. She wants to loose 200 pounds. Needs US of gallbladder Needs HIDA scan Needs esophogram [place] [facility] [place] EGD Orthopedic consultation Needs sleep study. Need cardiology Past Medical History Past Medical History: Diabetes Mellitus, Hyperlipidemia, Thyroid Disorder Additional Past Medical History / Comment(s): Osteoporosis, ADD, OCD, schizoaffective disorder, hypothyroid, osteoporosis, obesity, hyperlipidemia. 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 16 worked for [employer] and exposure to silica and jacobo dust History of Any Multi-Drug Resistant Organisms: None Reported Past Surgical History: Hysterectomy Additional Past Surgical History / Comment(s): endometrosis surgeries x2 Past Anesthesia/Blood Transfusion Reactions: No Reported Reaction, Blood Transfusion Reaction Additional Past Anesthesia/Blood Transfusion Reaction / Comm: PAtient wants no blood transfusions Past Psychological History: ADD/ADHD, Schizoaffective Disorder, Schizophrenia Smoking Status: Former smoker Past Alcohol Use History: None Reported Past Drug Use History: None Reported - Past Family History Mother Additional Family Medical History / Comment(s): empheseyma from Father Family Medical History: Myocardial Infarction ([place]) Additional Family Medical History / Comment(s): at 67 Surgical - Exam Vital Signs Temp Pulse BP 97.8 F 70 134/77 02/13/20 13:05 02/13/20 13:05 02/13/20 13:05 Bariatric Checklist Checklist: Plan: Checklist: EGD: 1. Hiatal hernia: 2. H. Pylori: HgbA1c: Vitamin D: Smoking: Former smoker Primary care physician referral: dr finn Psychiatry clearance: Cardiology clearance: Sleep study: Diet journal: VTE risk score: VTE risk level: Rehab needs at discharge:
[2020-02-15 09:27] VITALS: BP 134/77; PULSE 70; TEMP 97.8; BMI 60.3
== END | disposition home or self-care (01) ==
LOC: BARWHC3 12:47
PROVIDERS: ATTEND Surgery Plastic and Reconstructive Surgery
DX: E66.01 Morbid (severe) obesity due to excess calories (principal); K21.9 Gastro-esophageal reflux disease without esophagitis; N80.9 Endometriosis, unspecified; K44.9 Diaphragmatic hernia without obstruction or gangrene; Z68.44 Body mass index [BMI] 60.0-69.9, adult; F20.9 Schizophrenia, unspecified; Z87.891 Personal history of nicotine dependence; Z90.710 Acquired absence of both cervix and uterus; Z79.899 Other long term (current) drug therapy
CPT/HCPCS: 99211

== ENCOUNTER → 2020-08-27 | Outpatient (CLI) | payer MEDICARE ==
[2020-08-27 11:25] VITALS: BP 142/85; PULSE 63; RESP 18; TEMP 97.7
--- NOTE | 2020-08-27 19:07 | P.PAINCN ---
History of Present Illness - Reason for Consult Consult date: 08/27/20 - History of Present Illness This is 60 years old female with a chronic history of severe pain bilaterally, 2 years ago years ago the pain is constant and increases with any activity especially walking, intensity increases over time and mostly localized in the medial and lateral aspect of both knees, patient was evaluated by orthopedic surgeon Dr. Sargent , and she was diagnosed with osteoarthritis, and he recommended interventional pain management, patient is morbidly obese, she denies any fever , no redness no effusion within the knee joint Past Medical History Past Medical History: Diabetes Mellitus, Hyperlipidemia, Thyroid Disorder Additional Past Medical History / Comment(s): Osteoporosis, ADD, OCD, schizoaffective disorder, hypothyroid, osteoporosis, obesity, hyperlipidemia. 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, and at the age of 16 worked for [employer] and exposure to silica and jacobo dust History of Any Multi-Drug Resistant Organisms: None Reported Past Surgical History: Hysterectomy Additional Past Surgical History / Comment(s): endometrosis surgeries x2 Past Anesthesia/Blood Transfusion Reactions: No Reported Reaction, Blood Transfusion Reaction Additional Past Anesthesia/Blood Transfusion Reaction / Comm: PAtient wants no blood transfusions Past Psychological History: ADD/ADHD, Schizoaffective Disorder, Schizophrenia Smoking Status: Never smoker Past Alcohol Use History: None Reported Past Drug Use History: None Reported - Past Family History Mother Additional Family Medical History / Comment(s): empheseyma from Father Family Medical History: Myocardial Infarction ([place]) Additional Family Medical History / Comment(s): at 67 Medications and Allergies Home Medications Medication Instructions Recorded Confirmed Type Albuterol Sulfate [Ventolin HFA] 1 - 2 puff INHALATION RT-Q4H PRN 07/05/19 02/20/20 History Atorvastatin [Lipitor] 20 mg PO HS 07/05/19 02/20/20 History Cariprazine HCl [Vraylar] 6 mg PO HS 07/05/19 02/20/20 History Cetirizine HCl [Zyrtec] 10 mg PO DAILY 07/05/19 02/20/20 History Dextroamphetamine/Amphetamine 30 mg PO DAILY@1500 07/05/19 02/20/20 History [Adderall] Dextroamphetamine/Amphetamine 60 mg PO DAILY@0800 07/05/19 02/20/20 History [Adderall] Estradiol Cream [Estrace Cream 1 gm VAGINAL WE 07/05/19 02/20/20 History 0.01%] Gabapentin [Neurontin] 1,200 mg PO HS 07/05/19 02/20/20 History QUEtiapine [SEROquel] 25 mg PO HS 07/05/19 02/20/20 History Thyroid,Pork [[place] Thyroid] 90 mg PO DAILY 07/05/19 02/20/20 History Venlafaxine HCl [Effexor XR] 300 mg PO HS 07/05/19 02/20/20 History traZODone HCL 150 mg PO HS 07/05/19 02/20/20 History Albuterol Inhaler (u) [Ventolin 1 - 2 puff INHALATION RT-Q6H PRN 07/09/19 02/20/20 Rx Hfa Inhaler (u)] 30 Days #1 inhaler Apixaban [Eliquis] 10 mg PO BID 30 Days #70 tab 07/09/19 02/20/20 Rx Pseudoephedrine [Sudafed] 30 mg PO TID 7 Days #21 tab 07/09/19 02/20/20 Rx predniSONE 10 mg PO DIRECTED #30 tab 07/09/19 02/20/20 Rx Ibuprofen 800 mg PO Q8H PRN #10 tab 10/06/19 02/20/20 Rx Allergies Allergy/AdvReac Type Severity Reaction Status Date / Time codeine Allergy Nausea & Verified 02/20/20 11:52 Vomiting oxcarbazepine Allergy Rash/Hives Verified 02/20/20 11:52 [From Trileptal] Physical Exam Vitals: Vital Signs Temp Pulse Resp BP Pulse Ox 08/27/20 11:18 97.7 F 63 18 142/85 98 Intake and Output 08/27/20 08/27/20 08/27/20 06:59 14:59 22:59 Other: Weight 171.912 kg Physical Examinations : -Constitutiona : Cooperative , not in acute distress . -HEENT : nech : supple , no Lymphadenopathy , normal thyroid size . : eyes : no ptosis , no icterus, no photophobia . - neurologic : Cranial nerve II to XII intact , no focal neurological deffecit . -psychatric : alert , oriented X 3 , appropriate affect , intact judgment and insight . -Lymphatic : no Lymphadenopathy . - musculoskeltal : Lumber spine moter stegnth lower extremities ,thigh and legs 5/5 Right side , 5/5 Left side Knee joint= no effusion , no redness There is a bilateral knee There is tenderness in the medial and lateral aspect of the knee joint bilaterally Flexion and extension arthropathy associated with severe pain Results Comments: X-ray of the left knee = osteoarthritis Assessment and Plan Plan: Assessment and plan=1-osteoarthritis of knee joint bilaterally. Patient could benefit from steroid injection knee joint bilaterally 2-extreme morbid obesity Discussed with the patient the need for weight loss Time with Patient: Greater than 30 PQRS Measure Charge Sheet Measure #130: Documentation of Current Meds in Medical Chart: Patient's medications documented in chart Measure #226: Tobacco Use: Screen & Cessation Intervention: Pt not a tobacco user Measure #111: Pneumonia Vaccination: Pneumococcal vaccine NOT administered or previously given Measure #47: Advance Care Plan: Advance care planning discussed & documented, pt chose/unable to give Measure #412: Opioid Treatment Agreement: No documentation of signed opioid treatment agreement Measure #408: Opioid Therapy Follow-up Evaluation: Patient had NO f/u eval minimum every 3 months during opioid therapy Measure #317: Preventitive Care & Scrn High Bld Press & F/U: Pre-hypertensive or hypertensive BP documented, pt will f/u with PCP Measure #128: Body Mass Index (BMI) Screening & Follow-up: BMI documented ABOVE normal parameters - f/u documented Measure #131: Pain Assessment & Follow-up: Pain positive & plan documented, Follow-up scheduled Measure #431: Unhealthy Alcohol Use Preventative Care & Scrn: Patient not identified as an unhealthy alcohol user PQRS Narrative: Smoking Status Former smoker Blood Pressure 142/85 Pain Intensity [Bilateral Knee 10 ] Scale Used Numeric (1 - 10) Hx Alcohol Use (MH) No Home Medications: Ambulatory Orders Albuterol Sulfate [Ventolin HFA] 1 - 2 puff INHALATION RT-Q4H PRN 07/05/19 Atorvastatin [Lipitor] 20 mg PO HS 07/05/19 Cariprazine HCl [Vraylar] 6 mg PO HS 07/05/19 Cetirizine HCl [Zyrtec] 10 mg PO DAILY 07/05/19 Dextroamphetamine/Amphetamine [Adderall] 30 mg PO DAILY@1500 07/05/19 Dextroamphetamine/Amphetamine [Adderall] 60 mg PO DAILY@0800 07/05/19 Estradiol Cream [Estrace Cream 0.01%] 1 gm VAGINAL WE 07/05/19 Gabapentin [Neurontin] 1,200 mg PO HS 07/05/19 QUEtiapine [SEROquel] 25 mg PO HS 07/05/19 Thyroid,Pork [[place] Thyroid] 90 mg PO DAILY 07/05/19 Venlafaxine HCl [Effexor XR] 300 mg PO HS 07/05/19 traZODone HCL 150 mg PO HS 07/05/19 Albuterol Inhaler (u) [Ventolin Hfa Inhaler ([facility] [place])] 1 - 2 puff INHALATION RT- Q6H PRN 30 Days #1 inhaler 07/09/19 Apixaban [Eliquis] 10 mg PO BID 30 Days #70 tab 07/09/19 Pseudoephedrine [Sudafed] 30 mg PO TID 7 Days #21 tab 07/09/19 predniSONE 10 mg PO DIRECTED #30 tab 07/09/19 Ibuprofen 800 mg PO Q8H PRN #10 tab 10/06/19
== END | disposition home or self-care (01) ==
LOC: PNWHC3 10:18
PROVIDERS: ATTEND Specialist
DX: M17.0 Bilateral primary osteoarthritis of knee (principal); E66.01 Morbid (severe) obesity due to excess calories; E78.5 Hyperlipidemia, unspecified; E07.9 Disorder of thyroid, unspecified; Z88.5 Allergy status to narcotic agent; Z88.8 Allergy status to other drugs, medicaments and biological substances; Z79.891 Long term (current) use of opiate analgesic; Z79.899 Other long term (current) drug therapy; Z79.01 Long term (current) use of anticoagulants; Z79.890 Hormone replacement therapy; Z79.1 Long term (current) use of non-steroidal anti-inflammatories (NSAID)
CPT/HCPCS: 99211

== ENCOUNTER 2022-10-30 15:26 | Emergency (ER) | payer OTHER ==
[2022-10-30 15:32] VITALS: TEMP 98.4
[2022-10-30] MEDS ORDERED: SODIUM CHLORIDE 0.9% 1,000 ML IV STA (15:48)
--- NOTE | 2022-10-30 16:14 | ED ---
Abdominal Pain HPI - General Chief Complaint: Abdominal Pain Stated Complaint: Ab pain Time Seen by Provider: 10/30/22 15:47 Source: patient Mode of arrival: EMS Limitations: no limitations - History of Present Illness Initial Comments: Patient is a 62-year-old female who presents to the emergency department for abdominal pain. Patient feels that she has gallbladder issues which do not show up on ultrasound because she is obese. She reports intermittent pain in her right upper abdomen for the past couple years. Patient has had worsening of pain in the past 2 weeks. Pain is now constant worsened with food intake. Patient reports nausea without vomiting. She has had a few episodes of diarrhea, nonbloody. She denies fever, chills, burning with urination, blood in the urine. Denies chest pain and shortness of breath. She denies alcohol use. Patient has history of hysterectomy and appendectomy. Patient received Toradol in the ambulance which improved her pain significantly. - Related Data Home Medications Medication Instructions Recorded Confirmed Albuterol Sulfate [Ventolin HFA] 1 - 2 puff INHALATION RT-Q4H PRN 07/05/19 02/20/20 Atorvastatin [Lipitor] 20 mg PO HS 07/05/19 02/20/20 Cariprazine HCl [Vraylar] 6 mg PO HS 07/05/19 02/20/20 Cetirizine HCl [Zyrtec] 10 mg PO DAILY 07/05/19 02/20/20 Dextroamphetamine/Amphetamine 30 mg PO DAILY@1500 07/05/19 02/20/20 [Adderall] Dextroamphetamine/Amphetamine 60 mg PO DAILY@0800 07/05/19 02/20/20 [Adderall] Estradiol Cream [Estrace Cream 1 gm VAGINAL WE 07/05/19 02/20/20 0.01%] Gabapentin [Neurontin] 1,200 mg PO HS 07/05/19 02/20/20 QUEtiapine [SEROquel] 25 mg PO HS 07/05/19 02/20/20 Thyroid,Pork [[place] Thyroid] 90 mg PO DAILY 07/05/19 02/20/20 Venlafaxine HCl [Effexor XR] 300 mg PO HS 07/05/19 02/20/20 traZODone HCL 150 mg PO HS 07/05/19 02/20/20 Previous Rx's Medication Instructions Recorded Albuterol Inhaler [Ventolin Hfa 1 - 2 puff INHALATION RT-Q6H PRN 07/09/19 Inhaler] 30 Days #1 inhaler Apixaban [Eliquis] 10 mg PO BID 30 Days #70 tab 07/09/19 Pseudoephedrine [Sudafed] 30 mg PO TID 7 Days #21 tab 07/09/19 predniSONE 10 mg PO DIRECTED #30 tab 07/09/19 Ibuprofen 800 mg PO Q8H PRN #10 tab 10/06/19 Ibuprofen [Motrin] 800 mg PO Q8HR PRN #30 tab 10/30/22 Ondansetron Odt [Zofran Odt] 4 mg PO Q8HR PRN #9 tab 10/30/22 Allergies Allergy/AdvReac Type Severity Reaction Status Date / Time codeine Allergy Nausea & Verified 10/30/22 15:32 Vomiting oxcarbazepine Allergy Rash/Hives Verified 10/30/22 15:32 [From Trileptal] Review of Systems ROS Statement: Those systems with pertinent positive or pertinent negative responses have been documented in the HPI. ROS Other: All systems not noted in ROS Statement are negative. Past Medical History Past Medical History: Diabetes Mellitus, Hyperlipidemia, Thyroid Disorder Additional Past Medical History / Comment(s): Osteoporosis, ADD, OCD, schizoaffective disorder, hypothyroid, osteoporosis, obesity, hyperlipidemia. 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[employer], and at the age of 16 worked for [employer] and exposure to silica and jacobo dust History of Any Multi-Drug Resistant Organisms: None Reported Past Surgical History: Hysterectomy Additional Past Surgical History / Comment(s): endometrosis surgeries x2 Past Anesthesia/Blood Transfusion Reactions: No Reported Reaction, Blood Transfusion Reaction Additional Past Anesthesia/Blood Transfusion Reaction / Comment(s): PAtient wants no blood transfusions Past Psychological History: ADD/ADHD, Schizoaffective Disorder, Schizophrenia Smoking Status: Never smoker Past Alcohol Use History: None Reported Past Drug Use History: None Reported - Past Family History Mother Additional Family Medical History / Comment(s): empheseyma from Father Family Medical History: Myocardial Infarction (PA) Additional Family Medical History / Comment(s): at 67 General Exam Limitations: no limitations General appearance: alert, in no apparent distress Head exam: Present: atraumatic, normocephalic, normal inspection Eye exam: Present: normal appearance, PERRL, EOMI. Absent: scleral icterus, conjunctival injection, periorbital swelling Respiratory exam: Present: normal lung sounds bilaterally. Absent: respiratory distress, wheezes, rales, rhonchi, stridor Cardiovascular Exam: Present: regular rate, normal rhythm, normal heart sounds. Absent: systolic murmur, diastolic murmur, rubs, gallop, clicks GI/Abdominal exam: Present: soft, normal bowel sounds. Absent: distended, tenderness, guarding, rebound, rigid Neurological exam: Present: alert, oriented X3, CN II-XII intact Psychiatric exam: Present: normal affect, normal mood Skin exam: Present: warm, dry, intact, normal color. Absent: rash Course Vital Signs 10/30/22 10/30/22 15:29 17:16 Temperature 98.4 F Pulse Rate 80 64 Respiratory 22 18 Rate Blood Pressure 134/86 101/64 O2 Sat by Pulse 95 95 Oximetry Medical Decision Making - Medical Decision Making Was pt. sent in by a medical professional or institution (, PA, SATELLITE MANAGER, urgent care, hospital, or [facility]...) When possible be specific @ -[No] Did you speak to anyone other than the patient for history (EMS, parent, family, police, friend...)? What history was obtained from this source @ -[No] Did you review nursing and triage notes (agree or disagree)? Why? @ -[I reviewed and agree with nursing and triage notes] Were old charts reviewed (outside hosp., previous admission, EMS record, old EKG , old radiological studies, urgent care reports/EKG's, [facility] records)? Report findings @ -[No old charts were reviewed] Differential Diagnosis (chest pain, altered mental status, abdominal pain women, abdominal pain men, vaginal bleeding, weakness, fever, dyspnea, syncope, headache, dizziness, GI bleed, back pain, seizure, CVA, palpatations, mental hea lth)? @ -Differential Abdominal Pain Women: Appendicitis, Cholecystitis, diverticulosis, ischemic bowel, pancreatitis, hepatitis, UTI, gastroenteritis, AAA, incarcerated hernia, bowel obstruction, constipation, inflammatory bowel, hepatitis, peptic ulcer disease, splenic infarction, perforated viscus, vulvitis, ovarian torsion, PID, kidney stone, placenta abruption, this is not meant to be an all-inclusive list EKG interpreted by me (3pts min.). @ -[As above] X-rays interpreted by me (1pt min.). @ -[None done] CT interpreted by me (1pt min.). @ -[None done] U/S interpreted by me (1pt. min.). @ -Abdominal ultrasound negative for gallstones and dilated ducts there is hepatomegaly. What testing was considered but not performed or refused? (CT, X-rays, U/S, labs)? Why? @ -[None] What meds were considered but not given or refused? Why? @ -[None] Did you discuss the management of the patient with other professionals (sandie cheng i.e. , PA, SATELLITE MANAGER, lab, RT, psych nurse, director of social work, presiding judge, teacher, service officer, family independence case manager)? Give summary @ -[No] Was smoking cessation discussed for >3mins.? @ -[No] Was critical care preformed (if so, how long)? @ -[No] Were there social determinants of health that impacted care today? How? (Homelessness, low income, unemployed, alcoholism, drug addiction, transpor tation, low edu. Level, literacy, decrease access to med. care, longterm, rehab)? @ -[No] Was there de-escalation of care discussed even if they declined (Discuss DNR or withdrawal of care, Hospice)? DNR status @ -[No] What co-morbidities impacted this encounter? (DM, HTN, Smoking, COPD, CAD, Cancer, CVA, ARF, Chemo, Hep., AIDS, mental health diagnosis, sleep apnea, morbid obesity)? @ -Obesity Was patient admitted / discharged? Hospital course, mention meds given and route, prescriptions, significant lab abnormalities, going to OR and other pertinent info. @ Patient presenting for pain in her right upper abdomen. She is afebrile. No vomiting. The abdomen is soft and nontender.Laboratory studies obtained. There is no leukocytosis. Liver enzymes and bilirubin are normal. Patient given Zofran and fluids with improvement of nausea. Results discussed the with patient. Based on history there is concern for biliary dyskinesia. Patient will be referred to Dr. Tyson for further evaluation and management. undiagnosed new problem with uncertain prognosis? @ -[No] Drug Therapy requiring intensive monitoring for toxicity (Heparin, Nitro, Insulin, Cardizem)? @ -[No] Were any procedures done? @ -[No] Diagnosis/symptom? @ -RUQ pain Acute, or Chronic, or Acute on Chronic? @ acute Uncomplicated (without systemic symptoms) or Complicated (systemic symptoms)? @ -uncomplicated Side effects of treatment? @ -[No] Exacerbation, Progression, or Severe Exacerbation? @ -[No] Poses a threat to life or bodily function? How? (Chest pain, [place], PA, pneumonia, PE, COPD, DKA, ARF, appy, cholecystitis, CVA, Diverticulitis, Homicidal, Suicidal, threat to staff... and all critical care pts) @ -[No] Dr. Simon is my attending - Lab Data Result diagrams: 10/30/22 16:23 10/30/22 16: Lab Results 10/30/22 10/30/22 10/30/22 Range/Units 16:23 16:23 16:23 WBC 5.6 (3.8-10.6) k/uL RBC 4.07 (3.80-5.40) m/uL Hgb 12.2 (11.4-16.0) gm/dL Hct 37.0 (34.0-46.0) % MCV 90.9 (80.0-100.0) fL MCH 29.9 (25.0-35.0) pg MCHC 33.0 (31.0-37.0) g/dL RDW 16.2 H (11.5-15.5) % Plt Count 283 (150-450) k/uL MPV 7.9 Neutrophils % 61 % Lymphocytes % 28 % Monocytes % 7 % Eosinophils % 3 % Basophils % 0 % Neutrophils # 3.4 (1.3-7.7) k/uL Lymphocytes # 1.6 (1.0-4.8) k/uL Monocytes # 0.4 (0-1.0) k/uL Eosinophils # 0.2 (0-0.7) k/uL Basophils # 0.0 (0-0.2) k/uL Anisocytosis Slight Sodium 137 (137-145) mmol/L Potassium 4.2 (3.5-5.1) mmol/L Chloride 98 (98-107) mmol/L Carbon Dioxide 34 H (22-30) mmol/L Anion Gap 5 mmol/L BUN 13 (7-17) mg/dL Creatinine 0.93 (0.52-1.04) mg/dL Est GFR (CKD-EPI)AfAm 76 (>60 ml/min/1.73 sqM) Est GFR (CKD-EPI)NonAf 66 (>60 ml/min/1.73 sqM) Glucose 88 (74-99) mg/dL Plasma Lactic Acid Ned (0.7-2.0) mmol/L Calcium 8.9 (8.4-10.2) mg/dL Total Bilirubin 0.3 (0.2-1.3) mg/dL AST 18 (14-36) U/L ALT 18 (4-34) U/L Alkaline Phosphatase 82 (38-126) U/L Total Protein 6.6 (6.3-8.2) g/dL Albumin 3.7 (3.5-5.0) g/dL Lipase 121 (23-300) U/L Urine Color Colorless Urine Appearance Clear (Clear) Urine pH 7.0 (5.0-8.0) Ur Specific Dalton 1.001 (1.001-1.035) Urine Protein Negative (Negative) Urine Glucose (UA) Negative (Negative) Urine Ketones Negative (Negative) Urine Blood Negative (Negative) Urine Nitrite Negative (Negative) Urine Bilirubin Negative (Negative) Urine Urobilinogen <2.0 (<2.0) mg/dL Ur Leukocyte Esterase Negative (Negative) 10/30/22 Range/Units 16:23 WBC (3.8-10.6) k/uL RBC (3.80-5.40) m/uL Hgb (11.4-16.0) gm/dL Hct (34.0-46.0) % MCV (80.0-100.0) fL MCH (25.0-35.0) pg MCHC (31.0-37.0) g/dL RDW (11.5-15.5) % Plt Count (150-450) k/uL MPV Neutrophils % % Lymphocytes % % Monocytes % % Eosinophils % % Basophils % % Neutrophils # (1.3-7.7) k/uL Lymphocytes # (1.0-4.8) k/uL Monocytes # (0-1.0) k/uL Eosinophils # (0-0.7) k/uL Basophils # (0-0.2) k/uL Anisocytosis Sodium (137-145) mmol/L Potassium (3.5-5.1) mmol/L Chloride (98-107) mmol/L Carbon Dioxide (22-30) mmol/L Anion Gap mmol/L BUN (7-17) mg/dL Creatinine (0.52-1.04) mg/dL Est GFR (CKD-EPI)AfAm (>60 ml/min/1.73 sqM) Est GFR (CKD-EPI)NonAf (>60 ml/min/1.73 sqM) Glucose (74-99) mg/dL Plasma Lactic Acid Ned 0.9 (0.7-2.0) mmol/L Calcium (8.4-10.2) mg/dL Total Bilirubin (0.2-1.3) mg/dL AST (14-36) U/L ALT (4-34) U/L Alkaline Phosphatase (38-126) U/L Total Protein (6.3-8.2) g/dL Albumin (3.5-5.0) g/dL Lipase (23-300) U/L Urine Color Urine Appearance (Clear) Urine pH (5.0-8.0) Ur Specific Dalton (1.001-1.035) Urine Protein (Negative) Urine Glucose (UA) (Negative) Urine Ketones (Negative) Urine Blood (Negative) Urine Nitrite (Negative) Urine Bilirubin (Negative) Urine Urobilinogen (<2.0) mg/dL Ur Leukocyte Esterase (Negative) Disposition Clinical Impression: RUQ abdominal pain, Nausea Disposition: HOME SELF-CARE Condition: Good Instructions (If sedation given, give patient instructions): Biliary Colic (ED) Additional Instructions: Follow-up with Dr. Tyson in one to 2 days. Return to the emergency department if you experience new, concerning, or worsening symptoms. Prescriptions: Ibuprofen [Motrin] 800 mg PO Q8HR PRN #30 tab PRN Reason: Pain Ondansetron Odt [Zofran Odt] 4 mg PO Q8HR PRN #9 tab PRN Reason: Nausea Is patient prescribed a controlled substance at d/c from ED?: No Referrals: Keven Chaidez MD [Primary Care Provider] - 1-2 days Catalina Tyson MD [STAFF PHYSICIAN] - 1-2 days
[2022-10-30 16:53] LABS: Anisocytosis Slight; Basophils % (A) 0 %; Eosinophils # (A) 0.2 k/uL (0-0.7); Eosinophils % (A) 3 %; HGB 12.2 gm/dL (11.4-16.0); Lymphocytes # (A) 1.6 k/uL (1.0-4.8); Lymphocytes % (A) 28 %; MCH 29.9 pg (25.0-35.0); MCV 90.9 fL (80.0-100.0); Mean Platelet Volume 7.9; Monocytes # (A) 0.4 k/uL (0-1.0); Monocytes % (A) 7 %; Neutrophils # (A) 3.4 k/uL (1.3-7.7); Neutrophils % (A) 61 %; Platelet Count 283 k/uL (150-450); RBC 4.07 m/uL (3.80-5.40); RDW 16.2 % (11.5-15.5); WBC 5.6 k/uL (3.8-10.6)
[2022-10-30 16:56] LABS: Appearance,Urine Clear (Clear); Bilirubin,Urine Negative (Negative); Blood,Urine Negative (Negative); Color,Urine Colorless; Glucose,Urine (UA) Negative (Negative); Ketones,Urine Negative (Negative); Leukocyte Esterase,Urine Negative (Negative); Nitrite,Urine Negative (Negative); Protein,Urine Negative (Negative); Specific Gravity,Urine 1.001 (1.001-1.035); Urobilinogen,Urine <2.0 mg/dL (<2.0)
[2022-10-30 17:04] LABS: Albumin 3.7 g/dL (3.5-5.0); Calcium 8.9 mg/dL (8.4-10.2); Potassium 4.2 mmol/L (3.5-5.1); Total Bilirubin 0.3 mg/dL (0.2-1.3); Total Protein 6.6 g/dL (6.3-8.2)
[2022-10-30 17:24] VITALS: BP 101/64; PULSE 64; RESP 18
--- NOTE | 2022-10-30 17:30 | US ---
EXAMINATION TYPE: US abdomen limited DATE OF EXAM: 10/30/2022 COMPARISON: NONE CLINICAL HISTORY: RUQ pain. RUQ pain and nausea x 2 weeks TECHNIQUE: Multiple sonographic images of the right upper quadrant are obtained. FINDINGS: EXAM MEASUREMENTS: Liver Length: 19.1 cm Gallbladder Wall: 0.2 cm CBD: 0.5 cm Right Kidney: 11.0 x 4.8 x 5.5 cm Pancreas: visualized portions wnl Liver: enlarged Gallbladder: wnl Evidence for sonographic Sargent's sign: no CBD: visualized portions wnl Right Kidney: wnl IMPRESSION: Normal exam. No gallstones or dilated ducts. No free fluid.
== END 2022-10-30 18:40 | disposition home or self-care (01) ==
LOC: EC 15:26
DX: R10.11 Right upper quadrant pain (principal); R11.0 Nausea; E11.9 Type 2 diabetes mellitus without complications; E78.5 Hyperlipidemia, unspecified; E07.9 Disorder of thyroid, unspecified; F20.9 Schizophrenia, unspecified; E66.9 Obesity, unspecified; F90.9 Attention-deficit hyperactivity disorder, unspecified type; Z79.890 Hormone replacement therapy; Z79.899 Other long term (current) drug therapy; Z90.710 Acquired absence of both cervix and uterus
CPT/HCPCS: 36415; 76705; 80053; 81003; 83605; 83690; 85025; 96360; 99285

== ENCOUNTER → 2022-11-23 | Outpatient (CLI) | payer OTHER ==
--- NOTE | 2022-11-23 14:52 | US ---
EXAMINATION TYPE: US thyroid st tissue head/neck DATE OF EXAM: 11/23/2022 COMPARISON: NONE CLINICAL INDICATION: Female, 62 years old with history of E07.9 DISORDER OF THYROID, UNSPECIFIED; Thy roid nodules GLAND SIZE: Right Lobe: 4.2 x 1.9 x 1.9 cm Overall Parenchyma: homogenous Left Lobe: 4.5 x 2.0 x 1.8 cm Overall Parenchyma: homogeneous Isthmus Thickness: .3 cm NODULES RIGHT: # of nodules measured on right: 0 LEFT: # of nodules measured on left: 1 1. 1.3 X .8 x .9 cm, mid , cystic or almost completely cystic 1.3 cm cystic nodule, hypoechoic to a nechoic nodule, which is wider than tall, with smooth margins, without echogenic foci. Prior size: No previous ISTHMUS: # of nodules measured in the isthmus: 0 Bilateral neck scanned, no evidence of lymphadenopathy. Heterogeneous somewhat small size thyroid with right sided 1.3 cm cystic nodule IMPRESSION: As above. 2017 ACR TI-RADS LEVEL: TR-RADS 2 - Not Suspicious: No FNA *Highest TI-RADS level nodule reported
--- NOTE | 2022-11-23 15:32 | NM ---
EXAMINATION TYPE: NM hepatobiliary w EF DATE OF EXAM: 11/23/2022 COMPARISON: NONE INDICATION: Pain TECHNIQUE: After the intravenous administration of 4.3 mCi Tc 99m Mebrofenin hepatobiliary scintigrap hy is performed. Images were obtained immediately post injection. FINDINGS: There is prompt uptake and excretion of radiotracer by the liver. Extrahepatic ducts are identified at 5 minutes. The gallbladder is visualized within 5 minutes. At one hour 8 ounces of oral ensure plus is given to mimic CCK and gallbladder ejection fraction is c alculated at 47 %, which is in the normal range. (Normal >35% and <80%.). IMPRESSION: 1. Normal hepatobiliary scan
== END | disposition home or self-care (01) ==
LOC: RADUSWWP 12:07
PROVIDERS: ATTEND Emergency Medicine
DX: E04.2 Nontoxic multinodular goiter (principal); K83.9 Disease of biliary tract, unspecified
CPT/HCPCS: 76536; 78226; A9537

== ENCOUNTER → 2023-03-31 | Outpatient (CLI) | payer OTHER ==
--- NOTE | 2023-03-31 19:39 | CA ---
Transthoracic Echo Report Name: Jerrica Sarkar Age: 62 Gender: F : 1960 Exam Date: 03/31/2023 13:13 Exam Location: [facility] Ht (in): 65 Wt (lb): 375 Ordering Physician: Keven Chaidez MD Attending/Referring Phys: [employer] Marilia Gutierrez RDCS Procedure CPT: Indications: I50.22 CHRONIC SYSTOLIC (CONGESTIVE) HEART FAILURE Cardiac Hx: Technical Quality: Fair Contrast 1: Total Dose (mL): Contrast 2: Total Dose (mL): MEASUREMENTS (Male / Female) Normal Values 2D ECHO LV Diastolic Diameter PLAX 4.7 cm 4.2 - 5.9 / 3.9 - 5.3 cm LV Systolic Diameter PLAX 3.4 cm IVS Diastolic Thickness 1.5 cm 0.6 - 1.0 / 0.6 - 0.9 cm LVPW Diastolic Thickness 1.1 cm 0.6 - 1.0 / 0.6 - 0.9 cm LV Relative Wall Thickness 0.6 RV Internal Dim ED PLAX 3.7 cm LA Volume 49.3 cm??? 18 - 58 / 22 - 52 cm??? M-MODE Aortic Root Diameter MM 3.4 cm LA Systolic Diameter MM 4.6 cm LA Ao Ratio MM 1.4 AV Cusp Separation MM 2.6 cm DOPPLER AV Peak Velocity 183.7 cm/s AV Peak Gradient 13.5 mmHg AV Mean Velocity 145.3 cm/s AV Mean Gradient 8.8 mmHg AV Velocity Time Integral 42.0 cm LVOT Peak Velocity 151.4 cm/s LVOT Peak Gradient 9.2 mmHg LVOT Velocity Time Integral 31.3 cm MV Area PHT 3.2 cm??? Mitral E Point Velocity 103.3 cm/s Mitral A Point Velocity 126.8 cm/s Mitral E to A Ratio 0.8 MV Deceleration Time 240.1 ms MV E' Velocity 6.6 cm/s Mitral E to MV E' Ratio 15.6 TR Peak Velocity 284.9 cm/s TR Peak Gradient 32.5 mmHg Right Ventricular Systolic Press 36.0 mmHg FINDINGS Left Ventricle Moderately increased left ventricular wall thickness. Normal left ventricular systolic function with no obvious regional wall motion abnormalities. Left ventricular ejection fraction is estimated at 55-60 %. Right Ventricle Mild right ventricular dilatation. Mild pulmonary hypertension. Right Atrium Right atrium not well visualized. Left Atrium Normal left atrial size. Mitral Valve Structurally normal mitral valve. Mild mitral regurgitation. Aortic Valve No aortic valve stenosis or regurgitation. Tricuspid Valve Structurally normal tricuspid valve. Mild tricuspid regurgitation. Pulmonic Valve Structurally normal pulmonic valve. Trace pulmonic regurgitation. Pericardium No pericardial effusion. Aorta Normal size aortic root and proximal ascending aorta. CONCLUSIONS LVH with preserved systolic function Mild RV enlargement Previewed by: Dr. Zach Melendez MD (Electronically Signed) Final Date: 31 March 2023 19:38
== END | disposition home or self-care (01) ==
LOC: RADECHMAIN 13:03
PROVIDERS: ATTEND Emergency Medicine
DX: I50.22 Chronic systolic (congestive) heart failure (principal)
CPT/HCPCS: 93306

== ENCOUNTER → 2023-05-18 | Outpatient (CLI) | payer OTHER ==
[2023-05-18 14:19] VITALS: BP 156/78; PULSE 64; RESP 13; TEMP 97.7; BMI 62.1
--- NOTE | 2023-05-18 14:29 | P.HPBAR ---
Bariatric H&P - History & Physicial H&P Date: 05/18/23 History & Physicial: Visit/CC: surgery inquiry Patient initial contact: Initial weight: Initial weight in pounds: Height: 5 ft 5 in Initial BMI: Last weight: Current weight: 169.507 kg Current weight in pounds: 373.70 Current BMI: 62.1 [place] body weight (based on NIH guidelines): 56.699 kg Excess body weight loss: The patient is a 62 year-old F who presents for Bariatric Assessment. DATE OF SERVICE: 05/18/2023 REASON FOR CONSULTATION: Morbid obesity HISTORY OF PRESENT ILLNESS: Jerrica Sarkar is a 62-year-old female who comes with lifelong morbid obesity. She has gained more weight gain over 3 years. She went from 2x to 4x close eye. She now has new comorbidities including chronic obstructive pulmonary disease COPD and bronchial asthma. She had left knee and right knee replacements are end-stage osteoarthritis. She is eating too much. She denies active hip or back pain. She reports ankle swelling. She still has her gallbladder. She has a hiatal hernia. She had upper scope and lower scope over 3 years ago. She wants the lap band. She had ECHO 2 years ago and last month. She only wants the band. She is over 225 pounds overweight. At height of 5 feet 5 inches, her ideal body weight is 154 pounds. She comes in 374 pounds. Her body mass index is 62.2. She is 225 pounds overweight. PAST MEDICAL HISTORY: 1. Morbid obesity due to excess calories 2. Body mass index of 60.4, initial 3. Schizophrenia 4. Hyperlipidemia 5. Asthma 6. Neuropathy 7. Hypothyroidism 8. Depressive disorder 9. Diabetes type II 10. Osteoporosis 11. Attention deficit disorder/ADHD 12. Schizoaffective disorder 13. Hypothyroidism 14. Endometriosis 15. Blood transfusion reaction 16. Chronic obstructive pulmonary disease 17. Bronchial asthma. 18. Hiatal hernia 19. End-stage osteoarthritis bilateral knees PAST SURGICAL HISTORY: 1. Lysis of adhesions 2. Hysterectomy 3. Bilateral knee replacements. 4. Colonoscopy 5. Upper endoscopy HOME MEDICATIONS: Home Medications Medication Instructions Recorded Confirmed Albuterol Sulfate [Ventolin HFA] 1 - 2 puff INHALATION RT-Q4H PRN 07/05/19 05/18/23 Cariprazine HCl [Vraylar] 6 mg PO HS 07/05/19 05/18/23 Cetirizine HCl [Zyrtec] 10 mg PO DAILY 07/05/19 05/18/23 Dextroamphetamine/Amphetamine 30 mg PO DAILY@1500 07/05/19 05/18/23 [Adderall] Gabapentin [Neurontin] 1,200 mg PO HS 07/05/19 05/18/23 Thyroid,Pork [[place] Thyroid] 90 mg PO DAILY 07/05/19 05/18/23 Venlafaxine HCl [Effexor XR] 300 mg PO HS 07/05/19 05/18/23 traZODone HCL 150 mg PO HS 07/05/19 05/18/23 Previous Rx's Medication Instructions Recorded Albuterol Inhaler [Ventolin Hfa 1 - 2 puff INHALATION RT-Q6H PRN 07/09/19 Inhaler] 30 Days #1 inhaler ALLERGIES: Allergies Allergy/AdvReac Type Severity Reaction Status Date / Time codeine Allergy Nausea & Verified 05/18/23 13:55 Vomiting oxcarbazepine Allergy Rash/Hives Verified 05/18/23 13:55 [From Trileptal] SOCIAL HISTORY: Past tobacco use. FAMILY HISTORY: No family history of ulcerative colitis disease or Crohn's disease. Family history of morbid obesity. No lupus in the family. No reports of stomach or esophageal cancer. REVIEW OF ORGAN SYSTEMS: CONSTITUTIONAL: At height of 5 feet 5 inches, her ideal body weight is 154 pounds. She comes in 374 pounds. Her body mass index is 62.2. She is 225 poun ds overweight. HEENT: Denies any active troubles with vision or hearing. Has troubles with swallowing. ENDOCRINE: Has diabetes. Has hypothyroidism. CARDIOVASCULAR: Past reports of palpitations or heart attacks or chest pain. Has hyperlipidemia RESPIRATORY: Has daytime somnolence. Has asthma. GASTROINTESTINAL: Denies any bright red blood per rectum. No diarrhea. No constipation. GENITOURINARY: Has hysterectomy MUSCULOSKELETAL: Has lower back pain and joint pain. Has osteoarthritis of the knees. NEURO: No headaches. No seizure disorders. PSYCH: Has depression. No suicidal ideation. RHEUMATOLOGIC: No lupus. No rheumatoid arthritis. HEMATOLOGIC: Denies any abnormal bleeding or bruising. No personal history of DVTs. SKIN: No rash. No skin cancer. PHYSICAL EXAM: VITAL SIGNS: Height 5 foot 5 inches, weight 374 pounds. BMI 62.2 ital Signs Temp 97.7 F 05/18/23 13:59 Pulse 64 05/18/23 13:59 Resp 13 05/18/23 13:59 BP 156/78 05/18/23 13:59 Pulse Ox FiO2 GENERAL: Well-developed in no acute distress. HEENT: No scleral icterus. Extraocular movements grossly intact. Hears conversational speech. No nasal drainage. NECK: Supple without lymphadenopathy. CHEST: Nonlabored respirations with equal bilateral excursions. CARDIOVASCULAR: Regular rate and regular rhythm. Distal 2+ pulses. ABDOMEN: Obese, soft, nontender, nondistended. Moderate-sized pannus MUSCULOSKELETAL: No clubbing, cyanosis. NEURO: No focal or lateralizing signs. Cranial nerves 2 through 12 grossly within normal limits. PSYCH: Appropriate affect. Alert and oriented to person, place and time. SKIN: Good skin turgor. Well perfused. ASSESSMENT: 1. Morbid obesity due to excess calories 2. Body mass index of 60.4, initial 3. Schizophrenia 4. Hyperlipidemia 5. Asthma 6. Neuropathy 7. Hypothyroidism 8. Depressive disorder 9. Diabetes type II 10. Osteoporosis 11. Attention deficit disorder/ADHD 12. Schizoaffective disorder 13. Hypothyroidism 14. Endometriosis 15. Blood transfusion reaction 16. Chronic obstructive pulmonary disease 17. Bronchial asthma. 18. Hiatal hernia 19. End-stage osteoarthritis bilateral knees PLAN: 1. Surgical options including a band, gastric bypass, sleeve gastrectomy were described in detail. Alternatives such as gastric balloon including duodenal switch were described. She is looking into the gastric band. 2. The [place] bariatric surgical collaborative data and outcomes calculator were described with surgical options. 3. Recommend a bariatric metabolic panel to evaluate for micro- including macronutrient deficiencies. 4. For history of daytime somnolence, recommend evaluation and treatment for sleep apnea. 5. Dietary surveillance and counseling was reviewed. Increased protein intake over 65 grams daily advised. 6. Will need cardiac risk assessment. 7. Recommend medical risk assessment. 8. Psych assessment per insurance guidelines. 9. Recommend upper endoscopy. 10. Recommend 12-lead EKG. 11. Recommend esophagram 12. Recommend ultrasound of the gallbladder 13. Recommend HIDA scan 14. Recommend colonoscopy for colon screen. 15. Referral to [facility] for gastric band. Thank you for this consultation. Past Medical History Past Medical History: Diabetes Mellitus, Hyperlipidemia, Thyroid Disorder Additional Past Medical History / Comment(s): Osteoporosis, ADD, OCD, schizoaffective disorder, hypothyroid, osteoporosis, obesity, hyperlipidemia. 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 age of 16 worked for [employer] and exposure to silica and jacobo dust History of Any Multi-Drug Resistant Organisms: None Reported Past Surgical History: Hysterectomy Additional Past Surgical History / Comment(s): endometrosis surgeries x2 Past Anesthesia/Blood Transfusion Reactions: No Reported Reaction, Blood Transfusion Reaction Additional Past Anesthesia/Blood Transfusion Reaction / Comm: PAtient wants no blood transfusions Past Psychological History: ADD/ADHD, Schizoaffective Disorder, Schizophrenia Smoking Status: Never smoker Past Alcohol Use History: None Reported Past Drug Use History: None Reported - Past Family History Mother Additional Family Medical History / Comment(s): empheseyma from Father Family Medical History: Myocardial Infarction ([place]) Additional Family Medical History / Comment(s): at 67 Surgical - Exam Vital Signs Temp Pulse Resp BP 97.7 F 64 13 156/78 05/18/23 13:59 05/18/23 13:59 05/18/23 13:59 05/18/23 13:59 Bariatric Checklist Checklist: Plan: Checklist: EGD: 1. Hiatal hernia: 2. H. Pylori: HgbA1c: Vitamin D: Smoking: Former smoker Primary care physician referral: dr finn Psychiatry clearance: Cardiology clearance: Sleep study: Diet journal: VTE risk score: VTE risk level: Rehab needs at discharge:
== END ==
LOC: BARWHC3 13:28
PROVIDERS: ATTEND Surgery Plastic and Reconstructive Surgery
DX: E66.01 Morbid (severe) obesity due to excess calories (principal); J44.89 Other specified chronic obstructive pulmonary disease; J45.901 Unspecified asthma with (acute) exacerbation; E03.9 Hypothyroidism, unspecified; E11.40 Type 2 diabetes mellitus with diabetic neuropathy, unspecified; F32.A Depression, unspecified; M17.0 Bilateral primary osteoarthritis of knee; K44.9 Diaphragmatic hernia without obstruction or gangrene; T80.3 ABO incompatibility reaction due to transfusion of blood or blood products; F25.9 Schizoaffective disorder, unspecified; F90.9 Attention-deficit hyperactivity disorder, unspecified type; N80.9 Endometriosis, unspecified; M81.0 Age-related osteoporosis without current pathological fracture; E78.5 Hyperlipidemia, unspecified; Z68.44 Body mass index [BMI] 60.0-69.9, adult; Z79.899 Other long term (current) drug therapy; Z79.890 Hormone replacement therapy; Z88.5 Allergy status to narcotic agent; Z88.8 Allergy status to other drugs, medicaments and biological substances; Z87.891 Personal history of nicotine dependence
CPT/HCPCS: 99211

== ENCOUNTER → 2023-09-05 | Outpatient (CLI) | payer OTHER ==
[2023-09-05 12:00] VITALS: BP 150/81; PULSE 72; TEMP 97.7; BMI 62.0
--- NOTE | 2023-09-26 15:12 | P.HPBAR ---
Bariatric H&P - History & Physicial H&P Date: 09/05/23 History & Physicial: Visit/CC: new patient Patient initial contact: Initial weight: Initial weight in pounds: Height: 5 ft 4.75 in Initial BMI: Last weight: Current weight: 167.829 kg Current weight in pounds: 370.00 Current BMI: 62.0 [place] body weight (based on NIH guidelines): 56.132 kg Excess body weight loss: The patient is a 63 year-old F who presents for Bariatric Assessment. Patient presents today for sleeve gastrec Lap-Band consultation. Patient wished undergo Lap-Band surgery. Patient states he has family members and friends the Lap- Band. I did discuss the sleeve gastrectomy. However the patient is adamant that she wants a band. . She is morbidly obese. BMI 62. She has had lifetime problems obesity. Past Medical History Past Medical History: Diabetes Mellitus, Hyperlipidemia, Thyroid Disorder Additional Past Medical History / Comment(s): Osteoporosis, ADD, OCD, schizoaffective disorder, hypothyroid, osteoporosis, obesity, hyperlipidemia. 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16 worked for [employer] and exposure to silica and jacobo dust History of Any Multi-Drug Resistant Organisms: None Reported Past Surgical History: Hysterectomy Additional Past Surgical History / Comment(s): endometrosis surgeries x2 Past Anesthesia/Blood Transfusion Reactions: No Reported Reaction, Blood Transfusion Reaction Additional Past Anesthesia/Blood Transfusion Reaction / Comm: PAtient wants no blood transfusions Past Psychological History: ADD/ADHD, Schizoaffective Disorder, Schizophrenia Smoking Status: Never smoker Past Alcohol Use History: None Reported Past Drug Use History: None Reported - Past Family History Mother Additional Family Medical History / Comment(s): empheseyma from Father Family Medical History: Myocardial Infarction ([place]) Additional Family Medical History / Comment(s): at 67 Surgical - Exam Vital Signs Temp Pulse BP 97.7 F 72 150/81 09/05/23 11:51 09/05/23 11:51 09/05/23 11:51 - General well developed, well nourished, no distress - Eyes PERRL - ENT normal pinna, normal nares - Neck no masses - Respiratory normal expansion - Cardiovascular Rhythm: regular - Abdomen Abdomen: soft, non tender Bariatric Assessment & Plan Plan: More obesity. Patient undergo EGD. Bariatric Checklist Checklist: Plan: Checklist: EGD: 1. Hiatal hernia: 2. H. Pylori: HgbA1c: Vitamin D: Smoking: Former smoker Primary care physician referral: dr finn Psychiatry clearance: Cardiology clearance: Sleep study: Diet journal: VTE risk score: VTE risk level: Rehab needs at discharge:
== END ==
LOC: BARWHC3 10:31
PROVIDERS: ATTEND Surgery
DX: E66.01 Morbid (severe) obesity due to excess calories (principal); E11.9 Type 2 diabetes mellitus without complications; E78.5 Hyperlipidemia, unspecified; E03.9 Hypothyroidism, unspecified; F98.8 Other specified behavioral and emotional disorders with onset usually occurring in childhood and adolescence; F90.9 Attention-deficit hyperactivity disorder, unspecified type; F25.9 Schizoaffective disorder, unspecified; M81.0 Age-related osteoporosis without current pathological fracture; F42.9 Obsessive-compulsive disorder, unspecified; Z88.5 Allergy status to narcotic agent; Z88.8 Allergy status to other drugs, medicaments and biological substances; Z79.890 Hormone replacement therapy; Z79.82 Long term (current) use of aspirin; Z87.891 Personal history of nicotine dependence; Z68.44 Body mass index [BMI] 60.0-69.9, adult
CPT/HCPCS: 99212

== ENCOUNTER → 2023-09-20 | Outpatient (CLI) | payer OTHER | LOC: CPPFTMAIN 11:22 | PROVIDERS: ATTEND Emergency Medicine | DX: J45.909 Unspecified asthma, uncomplicated (principal); Z88.5 Allergy status to narcotic agent; Z88.8 Allergy status to other drugs, medicaments and biological substances; Z79.51 Long term (current) use of inhaled steroids; Z79.899 Other long term (current) drug therapy; Z87.891 Personal history of nicotine dependence | CPT/HCPCS: 94060; 94726; 94729 ==

== ENCOUNTER 2023-10-14 10:21 | Day surgery (SDC) | payer OTHER ==
[2023-10-12 14:30] VITALS: BMI 60.0
[~2023-10-14 10:21] MED LIST: LIDOCAINE 1% (10MG/ML) FOR IV START INTRADERMA PRN
[2023-10-14] MEDS: LACTATED RINGERS 1,000 ML IV SCH (11:08)
[2023-10-14 11:13] VITALS: TEMP 98.2
[2023-10-14] MEDS ORDERED: PROPOFOL 10 MG/ML 20 ML VIAL IV ONE (11:33)
--- NOTE | 2023-10-14 11:51 | P.PCN ---
Date of Procedure: 10/14/23 Procedure(s) Performed: BRIEF HISTORY: Patient is a 63-year-old pleasant white female scheduled for an elective colonoscopy as a part of screening for colon cancer. Her grandmother was then sent colon cancer at age 60. PROCEDURE PERFORMED: Colonoscopy. PREOPERATIVE DIAGNOSIS: Screening for colon cancer. IV sedation per Anesthesia. PROCEDURE: After informed consent was obtained, the patient, was brought into the endoscopy unit. IV sedation was administered by Anesthesia under continuous monitoring. Digital rectal examination was normal. Initially the Olympus CF-160 flexible video colonoscope was then inserted in the rectum, gradually advanced into the cecum without any difficulty. Careful examination was performed as the scope was gradually being withdrawn. Ileocecal valve and the appendiceal orifice were visualized and appeared normal. Prep was excellent. Mucosa of the cecum, ascending colon, transverse colon, descending colon, sigmoid colon, and rectum appeared normal. Scattered similar diverticulosis. Retroflexion was performed in the rectum and no lesions were seen. The patient tolerated the procedure well. IMPRESSION: Normal-appearing colon from rectum to cecum with no evidence of colorectal neoplasia Scattered sigmoid diverticulosis. . RECOMMENDATIONS: Findings of this examination were discussed with the patient as well as a family. She was advised to have a repeat screening colonoscopy in 10 years..
[2023-10-14 12:55] VITALS: BP 109/65; PULSE 65; RESP 18
== END 2023-10-14 12:36 | disposition home health service (06) ==
LOC: ORWHC2ENDO 10:21
PROVIDERS: ATTEND Internal Medicine Gastroenterology
DX: Z12.11 Encounter for screening for malignant neoplasm of colon (principal); K57.30 Diverticulosis of large intestine without perforation or abscess without bleeding; Z88.5 Allergy status to narcotic agent; E78.5 Hyperlipidemia, unspecified; E07.9 Disorder of thyroid, unspecified; E11.9 Type 2 diabetes mellitus without complications; F98.8 Other specified behavioral and emotional disorders with onset usually occurring in childhood and adolescence; N18.9 Chronic kidney disease, unspecified; F25.9 Schizoaffective disorder, unspecified; Z79.890 Hormone replacement therapy; Z90.710 Acquired absence of both cervix and uterus; Z90.89 Acquired absence of other organs; Z98.890 Other specified postprocedural states; Z79.899 Other long term (current) drug therapy
CPT/HCPCS: G0105; J2704

== ENCOUNTER → 2024-01-16 | Outpatient (CLI) | payer OTHER ==
[2024-01-16 11:38] VITALS: BP 102/50; PULSE 80; RESP 14; TEMP 98.1; BMI 61.7
--- NOTE | 2024-01-16 17:17 | P.HPBAR ---
Bariatric H&P - History & Physicial H&P Date: 01/16/24 History & Physicial: Visit/CC: follow up Patient initial contact: Initial weight: Initial weight in pounds: Height: 5 ft 4.7 in Initial BMI: Last weight: Current weight: 166.65 kg Current weight in pounds: 367.40 Current BMI: 61.7 [place] body weight (based on NIH guidelines): 56.019 kg Excess body weight loss: The patient is a 63 year-old F who presents for Bariatric Assessment.patient resents today for presurgical consultation. Patient wants undergo lap band surgery. Patient is an excellent understanding of the procedure. We went over the risks and benefits of the procedure. Past Medical History Past Medical History: Diabetes Mellitus, Hyperlipidemia, Osteoarthritis (OA), Thyroid Disorder Additional Past Medical History / Comment(s): ADD, OCD, schizoaffective disorder, hypothyroid, obesity, hyperlipidemia. 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16 worked for [employer] and exposure to silica and jacobo dust History of Any Multi-Drug Resistant Organisms: None Reported Past Surgical History: Hysterectomy, Tonsillectomy Additional Past Surgical History / Comment(s): endometrosis surgeries x2, colonoscopy, ORIF RT ANKLE, Past Anesthesia/Blood Transfusion Reactions: No Reported Reaction, Blood Transfusion Reaction Additional Past Anesthesia/Blood Transfusion Reaction / Comm: PAtient wants no blood transfusions Past Psychological History: ADD/ADHD, Schizoaffective Disorder, Schizophrenia Additional Psychological History / Comment(s): OCD Smoking Status: Never smoker Past Alcohol Use History: None Reported Past Drug Use History: None Reported - Past Family History Mother Additional Family Medical History / Comment(s): empheseyma from Father Family Medical History: Myocardial Infarction ([place]) Additional Family Medical History / Comment(s): at 67 Surgical - Exam Vital Signs Temp Pulse Resp BP 98.1 F 80 14 102/50 01/16/24 11:31 01/16/24 11:31 01/16/24 11:31 01/16/24 11:31 - General well developed, well nourished, no distress - Eyes PERRL - ENT normal pinna - Respiratory normal expansion - Cardiovascular Rhythm: regular - Abdomen Abdomen: soft, non tender Bariatric Assessment & Plan Plan: morbid obesity, BMI 62. Patient will be scheduled for EGD. Bariatric Checklist Checklist: Plan: Checklist: EGD: 1. Hiatal hernia: 2. H. Pylori: HgbA1c: Vitamin D: Smoking: Former smoker Primary care physician referral: dr finn Psychiatry clearance: Cardiology clearance: Sleep study: Diet journal: VTE risk score: VTE risk level: Rehab needs at discharge:
== END ==
LOC: BARWHC3 10:31
PROVIDERS: ATTEND Surgery
DX: E66.01 Morbid (severe) obesity due to excess calories (principal); Z88.8 Allergy status to other drugs, medicaments and biological substances; Z88.5 Allergy status to narcotic agent; Z68.44 Body mass index [BMI] 60.0-69.9, adult; Z87.891 Personal history of nicotine dependence
CPT/HCPCS: 99211

== ENCOUNTER 2024-02-21 19:30 | Outpatient (CLI) | payer OTHER ==
--- NOTE | 2024-03-11 22:36 | P.PCN ---
Date of Procedure: 03/23/24 Operative Findings: Polysomnography report Date of service is 02/21/2024 Pertinent history This is a 63-year-old female patient, morbidly obese with a BMI of 60 along with significant number of other comorbidities including history of pulmonary embolism back in 2019 related to a DVT of the lower extremity, schizoaffective schizophrenia, diabetes mellitus type 2, anxiety/depression/bipolar disorder, hypothyroidism, and degenerative arthritis. A polysomnography was ordered due to high concerns of obstructive sleep apnea Pertinent physical findings The patient carries a body mass index of 60 with a body weight of 374 pounds Technical description The patient was studied using a standard complex polysomnography protocol that included recording of the 2 EKG, Central, occipital and frontal EEG, right and left outer canthus EOG, submental EMG, right and left anterior tibialis EMG, respiratory airflow by thermocouple and or pressure/flow transducer, respiratory efforts by abdominal and thoracic PVDF belts, oxygen saturation by cable oximetry. Position by observation synchronized the PSG. Equipment used: [employer]. Sleep architecture The total recording duration was around 87.0 minutes. The total sleep time was 372.5 minutes. The overall sleep efficiency was 96.3%. Latency to sleep onset was 7 minutes and latency to REM sleep was 124 minutes. The sleep architecture was characterized by 1.7% stage I, 91.5% stage II, 0% stage III, 6.7% REM sleep. The latency to sleep onset was 7 minutes and latency to REM sleep was 124 minutes. The total arousal index was 3.2. The wake after sleep onset time was 7 minutes. The total arousal index was 38.2 Respiratory analysis The sleep study showed a total of 267 obstructive events of which 171 were obstructive apneas, 0 were mixed apneas and 96 were obstructive hypopneas and the resulting AHI was 36.4 consistent with severe obstructive sleep apnea. The patient did not have any central obstructive respiratory events. Note that the patient had worsening in the severity of sleep apnea during REM sleep with an AHI of 45.6. Oxygenation analysis The patient had severe nocturnal oxygen desaturation. The baseline pulse ox while awake was 92% as such there was some baseline hypoxemia. Lowest pulse ox was 76% and the patient spent approximately 2 hours and 25 minutes of the sleep time below pulse ox of 89% Sleep continuity summary There was extensive sleep fragmentation with a respiratory arousal index of 33.2. Total number of arousals were 12 and 37 with an arousal index of 38.2 Periodic movement events No significant periodic limb movement activity was identified Cardiac summary Average heart rate was 62 with a minimum heart rate of 59 and a maximum heart rate of 65 Assessment Severe AMANDEEP with an AHI of 36.4 Chronic hypoxic respiratory failure with nocturnal oxygen saturation related to obstructive sleep apnea with a minimum pulse ox of 76% Abnormal sleep architecture with over representation of stage II sleep and diminished stage III and delta wave sleep. This is related to severe obstructive sleep apnea. Sleep fragmentation with a high arousal index secondary to obstructive sleep apnea Morbid obesity with a BMI of 60 Multiple comorbidities as mentioned above Plan Recommend CPAP therapy. The patient will be asked to come into the sleep center to undergo a CPAP titration. Further recommendations are to follow, following the CPAP titration.
== END 2024-02-22 05:45 | disposition home or self-care (01) ==
LOC: 3 N SLEEP 19:30
PROVIDERS: ATTEND Internal Medicine Critical Care Medicine
DX: G47.33 Obstructive sleep apnea (adult) (pediatric) (principal); G47.8 Other sleep disorders; E66.01 Morbid (severe) obesity due to excess calories; J96.11 Chronic respiratory failure with hypoxia; F25.9 Schizoaffective disorder, unspecified; F31.9 Bipolar disorder, unspecified; E03.9 Hypothyroidism, unspecified; E11.9 Type 2 diabetes mellitus without complications; M19.90 Unspecified osteoarthritis, unspecified site; Z68.44 Body mass index [BMI] 60.0-69.9, adult; Z86.711 Personal history of pulmonary embolism; Z86.718 Personal history of other venous thrombosis and embolism; Z88.5 Allergy status to narcotic agent; Z88.8 Allergy status to other drugs, medicaments and biological substances; Z79.890 Hormone replacement therapy; Z87.891 Personal history of nicotine dependence
CPT/HCPCS: 95810

== ENCOUNTER 2024-03-01 09:10 | Day surgery (SDC) | payer OTHER ==
[2024-03-01 10:24] VITALS: TEMP 97
[2024-03-01] MEDS: IV FLUID CONTINUATION 1,000 ML IV ONE (10:34)
[2024-03-01 10:35] LABS: Glucose,Whole Blood 88 mg/dL (70-110)
[2024-03-01] MEDS ORDERED: PROPOFOL 10 MG/ML 20 ML VIAL IV ONE (10:35)
[2024-03-01] MEDS ORDERED: LIDOCAINE 2% (PF) 20 MG/ML 5 ML VIAL ONE (10:35)
[2024-03-01] MEDS ORDERED: KETAMINE HCL IN 0.9 % NACL 50 MG/5 ML SYRINGE ONE (10:35)
--- NOTE | 2024-03-01 10:37 | P.GSHP ---
History of Present Illness H&P Date: 03/01/24 Chief Complaint: Gerd, morbid obesity Is a 63-year-old female with sleeve gastric. Patient was placed in gerd. Patient is obese. BMI 59. Past Medical History Past Medical History: Diabetes Mellitus, Hyperlipidemia, Osteoarthritis (OA), Thyroid Disorder Additional Past Medical History / Comment(s): ADD, OCD, schizoaffective disorder, hypothyroid, obesity, hyperlipidemia, "pre diabetic", recent sleep study - "no results yet". 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 Smoking Status: Former smoker - Past Family History Mother Additional Family Medical History / Comment(s): empheseyma from Father Family Medical History: Myocardial Infarction ([place]) Additional Family Medical History / Comment(s): at 67 Medications and Allergies Home Medications Medication Instructions Recorded Confirmed Type Cariprazine HCl [Vraylar] 6 mg PO HS 07/05/19 02/28/24 History Dextroamphetamine/Amphetamine 30 mg PO TID 07/05/19 02/28/24 History [Adderall] Thyroid,Pork [[place] Thyroid] 120 mg PO QAM 07/05/19 02/28/24 History Venlafaxine HCl [Effexor XR] 300 mg PO HS 07/05/19 02/28/24 History traZODone HCL 150 mg PO HS 07/05/19 02/28/24 History Albuterol Inhaler [Ventolin Hfa 1 - 2 puff INHALATION RT-Q4H PRN 09/05/23 02/28/24 History Inhaler] Ascorbic Acid [Vitamin C] 1,000 mg PO BID 09/05/23 02/28/24 History Aspirin EC [Ecotrin Low Dose] 81 mg PO DAILY 09/05/23 02/28/24 History Atorvastatin [Lipitor] 80 mg PO HS 09/05/23 02/28/24 History Budesonide-Formot 160-4.5 Mcg 2 puff INHALATION BID 09/05/23 02/28/24 History [Symbicort 160-4.5 Mcg Inhaler] Bumetanide [Bumex] 1 mg PO BID 09/05/23 02/28/24 History Celecoxib [CeleBREX] 200 mg PO BID PRN 09/05/23 02/28/24 History Cholecalciferol (Vitamin D3) 125 mcg PO DAILY 09/05/23 02/28/24 History [Vitamin D3 (125 MCG = 5,000 IU)] Dexlansoprazole [Dexilant] 60 mg PO DAILY 09/05/23 02/28/24 History Ferrous Sulfate [Feosol] 325 mg PO QAM 09/05/23 02/28/24 History Latanoprost Ophth [Xalatan 0.005%] 1 drops BOTH EYES HS 09/05/23 02/28/24 History Multivitamins, Thera [Multivitamin 1 tab PO QAM 09/05/23 02/28/24 History (formulary)] Spironolactone [Aldactone] 25 mg PO QAM 09/05/23 02/28/24 History polyethylene glycoL 3350 [Miralax] 17 gm PO BID PRN 09/05/23 02/28/24 History Gabapentin 1,800 mg PO HS 10/12/23 02/28/24 History Benztropine Mesylate [Cogentin] 0.5 mg PO QAM 02/28/24 02/28/24 History Cetirizine HCl [Zyrtec] 10 mg PO QAM PRN 02/28/24 02/28/24 History Allergies Allergy/AdvReac Type Severity Reaction Status Date / Time codeine Allergy Nausea & Verified 03/01/24 10:16 Vomiting oxcarbazepine Allergy Rash/Hives Verified 03/01/24 10:16 [From Trileptal] Surgical - Exam Vital Signs Temp Pulse Resp BP Pulse Ox 97.0 F L 61 20 194/86 98 03/01/24 10:15 03/01/24 10:15 03/01/24 10:15 03/01/24 10:15 03/01/24 10:15 - General well developed, well nourished, no distress - Eyes PERRL - ENT normal pinna - Neck no masses - Respiratory normal expansion - Cardiovascular Rhythm: regular - Abdomen Abdomen: soft, non tender Assessment and Plan Assessment: Gerd, obese. Will perform EGD
[2024-03-01] MEDS: LACTATED RINGERS 1,000 ML IV SCH (10:39)
--- NOTE | 2024-03-01 10:47 | P.OP ---
Date of Procedure: 03/01/24 Preoperative Diagnosis: Gerd Postoperative Diagnosis: Antral gastritis Procedure(s) Performed: egd Anesthesia: MAC Surgeon: Mj Huerta Pathology: other (Antrum) Condition: stable Disposition: PACU Description of Procedure: The patient was placed on the endoscopy table in the lateral position. She re ceived IV sedation. The gas was placed oropharynx passed in the esophagus and the stomach. Scope was placed to the pylorus. The first and second portion of the duodenum appeared normal. Scope was brought back to the antrum this appeared mildly Flaim. A biopsy was performed. Scope was then retroflexed remainder of the stomach appeared normal. The GE junction was at 40 cm. The distal esophagus appeared appropriate. The proximal esophagus appeared normal. Scope withdrawn for the patient.
[2024-03-01 10:54] VITALS: RESP 16
[2024-03-01 11:09] VITALS: BP 116/78; PULSE 78
== END 2024-03-01 11:20 | disposition home or self-care (01) ==
LOC: ORWHC2ENDO 09:10
PROVIDERS: ATTEND Surgery
DX: K29.50 Unspecified chronic gastritis without bleeding (principal); K21.9 Gastro-esophageal reflux disease without esophagitis; E66.01 Morbid (severe) obesity due to excess calories; Z68.43 Body mass index [BMI] 50.0-59.9, adult; Z98.84 Bariatric surgery status; E03.9 Hypothyroidism, unspecified; E11.69 Type 2 diabetes mellitus with other specified complication; E78.5 Hyperlipidemia, unspecified; I10 Essential (primary) hypertension; F25.9 Schizoaffective disorder, unspecified; F42.9 Obsessive-compulsive disorder, unspecified; Z87.891 Personal history of nicotine dependence; Z79.51 Long term (current) use of inhaled steroids; Z79.890 Hormone replacement therapy; Z79.82 Long term (current) use of aspirin; Z79.899 Other long term (current) drug therapy; Z88.5 Allergy status to narcotic agent; Z88.8 Allergy status to other drugs, medicaments and biological substances
CPT/HCPCS: 88305; 43239; J2704; J2001

== ENCOUNTER → 2024-05-07 | Outpatient (CLI) | payer OTHER ==
[2024-05-07 11:12] VITALS: BP 120/71; PULSE 66; RESP 16; TEMP 97.7; BMI 57.4
== END | disposition home or self-care (01) ==
LOC: BARWHC3 10:37
PROVIDERS: ATTEND Surgery
DX: E66.01 Morbid (severe) obesity due to excess calories (principal)
CPT/HCPCS: 99211

== ENCOUNTER 2024-05-14 19:39 | Outpatient (CLI) | payer OTHER ==
--- NOTE | 2024-05-21 22:35 | P.PCN ---
Date of Procedure: 05/14/24 Operative Findings: CPAP titration report Date of service is 05/14/2024 Pertinent history This is a 63-year-old female patient, morbidly obese with a BMI of 60 along with significant number of other comorbidities including history of pulmonary embolism back in 2019 related to a DVT of the lower extremity, schizoaffective schizophrenia, diabetes mellitus type 2, anxiety/depression/bipolar disorder, hypothyroidism, and degenerative arthritis. A polysomnography was performed on this patient on 02/21/2024 and the patient was found to have severe obstructive sleep apnea with an AHI of 36.4 associated with nocturnal oxygen desaturations and abnormal sleep architecture. Based on that, the patient was asked to come into the sleep center to undergo a CPAP titration. Pertinent physical findings The patient carries a height of 5 feet and 6 inches, weight of 374 pounds, body mass index is 60.4 Technical description The patient was studied using a standard complex polysomnography protocol that included recording of the 2 EKG, Central, occipital and frontal EEG, right and left outer canthus EOG, submental EMG, right and left anterior tibialis EMG, respiratory airflow by thermocouple and or pressure/flow transducer, respiratory efforts by abdominal and thoracic PVDF belts, oxygen saturation by cable oximetry. Position by observation synchronized the PSG. Equipment used: [place]. Stepwise CPAP titration was done to eliminate all obstructive respiratory events Sleep architecture The total recording duration was 371 minutes of the total sleep time was 3 and 48.5 minutes. The wake after sleep onset time was 9.5 minutes and overall sleep efficiency was 93.9%. The latency to sleep onset was 13.5 minutes. The sleep architecture was characterized by 4.3% stage I sleep, 89.0% stage II sleep, 0% stage III sleep and 8.8% REM sleep. The total arousal index was 8.1. Latency to REM onset was 333.5 minutes. Respiratory analysis The CPAP titration was started initially at a pressure of 5 cm of water and the pressure was gradually increased by increments of 1 cm to reach a maximum pressure of 14 cm of water. I carefully reviewed the CPAP titration taken on account the patient's sleep stage and body positions. Noted the patient was started in REM and non-REM sleep and the patient was in the nonsupine body position throughout the titration. There was obvious improvement in the obstructive respiratory events especially at pressures of 10 cm of water and higher. There was also improvement in the oxygenation status without any significant desaturations and the various CPAP pressures utilized. Oxygenation improved significantly and CPAP pressures of 10 cm and above. Sleep continuity summary There was improvement in sleep fragmentation. The patient's total arousal index was 8.1 with a number of arousals being 47. The respiratory arousal index was down to 2.1 Periodic movement events No significant periodic limb movement activity was identified Cardiac summary Average heart rate was 63 with a minimum heart rate of 59 and a maximum heart rate of 66 Assessment Severe AMANDEEP with an AHI of 36.4, the patient underwent a successful CPAP titration Chronic hypoxic respiratory failure with nocturnal oxygen saturation related to obstructive sleep apnea, improved with CPAP therapy Sleep fragmentation with a high arousal index secondary to obstructive sleep apnea, improved with CPAP therapy Morbid obesity with a BMI of 60 Multiple comorbidities as mentioned above Plan Will initiate CPAP therapy with pressure of 10 cm of water with a C-Flex of 3. Will going to offer the patient a medium size Simplus fullface mask. Encourage weight loss. Optimize sleep hygiene measures. Maintain regular sleep schedule. Treat comorbidities. See me back in 30 to 90 days to assess clinical response and compliancy. Will continue to follow.
== END 2024-05-15 05:45 | disposition home or self-care (01) ==
LOC: 3 N SLEEP 19:39
PROVIDERS: ATTEND Internal Medicine Critical Care Medicine
CPT/HCPCS: 95811

== ENCOUNTER → 2024-06-25 | Outpatient (CLI) | payer OTHER ==
[2024-06-25 10:45] VITALS: BP 132/84; PULSE 69; RESP 16; TEMP 98.5; BMI 55.5
--- NOTE | 2024-06-25 11:53 | P.HPBAR ---
Bariatric H&P - History & Physicial H&P Date: 06/25/24 History & Physicial: Visit/CC: f/u Patient initial contact: Initial weight: Initial weight in pounds: Height: 5 ft 4.75 in Initial BMI: Last weight: Current weight: 150.139 kg Current weight in pounds: 331.00 Current BMI: 55.5 [place] body weight (based on NIH guidelines): 56.132 kg Excess body weight loss: The patient is a 63 year-old F who presents for Bariatric Assessment. Patient follow-ups for presurgical consultation. Patient has lost 25 pounds since her last visit. She currently weighs 342 pounds. We are are awaiting insurance authorization for Lap-Band procedure. Past Medical History Past Medical History: Diabetes Mellitus, Hyperlipidemia, Osteoarthritis (OA), Thyroid Disorder Additional Past Medical History / Comment(s): ADD, OCD, schizoaffective disorder, hypothyroid, obesity, hyperlipidemia. 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 age of 16 worked for [employer] and exposure to silica and jacobo dust History of Any Multi-Drug Resistant Organisms: None Reported Past Surgical History: Hysterectomy, Tonsillectomy Additional Past Surgical History / Comment(s): endometrosis surgeries x2, colonoscopy, ORIF RT ANKLE, EGD Past Anesthesia/Blood Transfusion Reactions: No Reported Reaction, Blood Transfusion Reaction Additional Past Anesthesia/Blood Transfusion Reaction / Comm: PAtient wants no blood transfusions Past Psychological History: ADD/ADHD, Schizoaffective Disorder, Schizophrenia Additional Psychological History / Comment(s): OCD Smoking Status: Never smoker Past Alcohol Use History: None Reported Additional Past Alcohol Use History / Comment(s): smoked for 2 years as teen. 1/2 glass wine/week Past Drug Use History: None Reported - Past Family History Mother Additional Family Medical History / Comment(s): empheseyma from Father Family Medical History: Myocardial Infarction ([place]) Additional Family Medical History / Comment(s): at 67 Surgical - Exam Vital Signs Temp Pulse Resp BP 98.5 F 69 16 132/84 06/25/24 10:39 06/25/24 10:39 06/25/24 10:39 06/25/24 10:39 - General well developed, well nourished, no distress - Eyes PERRL - ENT normal pinna - Neck no masses - Respiratory normal expansion - Cardiovascular Rhythm: regular - Abdomen Abdomen: soft, non tender Bariatric Assessment & Plan Plan: More obesity, BMI 55. Patient be scheduled for Lap-Band surgery when c authorized by insurance. Bariatric Checklist Checklist: Plan: Checklist: EGD: 1. Hiatal hernia: 2. H. Pylori: HgbA1c: Vitamin D: Smoking: Former smoker Primary care physician referral: Dr. Ramirez Psychiatry clearance: Cardiology clearance: Sleep study: Diet journal: VTE risk score: VTE risk level: Rehab needs at discharge:
== END ==
LOC: BARWHC3 10:21
PROVIDERS: ATTEND Surgery
DX: Z48.815 Encounter for surgical aftercare following surgery on the digestive system (principal); E66.813 Obesity, class 3; Z68.43 Body mass index [BMI] 50.0-59.9, adult; Z88.5 Allergy status to narcotic agent; Z88.8 Allergy status to other drugs, medicaments and biological substances; Z91.018 Allergy to other foods; Z87.891 Personal history of nicotine dependence
CPT/HCPCS: 99211

== ENCOUNTER → 2024-08-20 | Outpatient (CLI) | payer OTHER ==
[2024-08-20 12:01] VITALS: BP 131/77; PULSE 61; RESP 16; TEMP 98.1
--- NOTE | 2024-08-20 13:39 | P.HPBAR ---
Bariatric H&P - History & Physicial H&P Date: 08/20/24 History & Physicial: Visit/CC: f/u Patient initial contact: Initial weight: Initial weight in pounds: Height: 5 ft 4.75 in Initial BMI: Last weight: Current weight: 151.755 kg Current weight in pounds: Current BMI: [place] body weight (based on NIH guidelines): Excess body weight loss: The patient is a 64 year-old F who presents for Bariatric Assessment. Patient presents today for presurgical consultation. Patient has an excellent understanding of Lap-Band procedure. Patient confirms that she wishes undergo Lap-Band surgery. Past Medical History Past Medical History: Diabetes Mellitus, Hyperlipidemia, Osteoarthritis (OA), Thyroid Disorder Additional Past Medical History / Comment(s): ADD, OCD, schizoaffective disorder, hypothyroid, obesity, hyperlipidemia. 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16 worked for [employer] and exposure to silica and jacobo dust History of Any Multi-Drug Resistant Organisms: None Reported Past Surgical History: Hysterectomy, Tonsillectomy Additional Past Surgical History / Comment(s): endometrosis surgeries x2, c olonoscopy, ORIF RT ANKLE, EGD Past Anesthesia/Blood Transfusion Reactions: No Reported Reaction, Blood Transfusion Reaction Additional Past Anesthesia/Blood Transfusion Reaction / Comm: PAtient wants no blood transfusions Past Psychological History: ADD/ADHD, Schizoaffective Disorder, Schizophrenia Additional Psychological History / Comment(s): OCD Smoking Status: Never smoker Past Alcohol Use History: None Reported Additional Past Alcohol Use History / Comment(s): smoked for 2 years as teen. 1/2 glass wine/week Past Drug Use History: None Reported - Past Family History Mother Additional Family Medical History / Comment(s): empheseyma from Father Family Medical History: Myocardial Infarction ([place]) Additional Family Medical History / Comment(s): at 67 Surgical - Exam Vital Signs Temp Pulse Resp BP 98.1 F 61 16 131/77 08/20/24 11:07 08/20/24 11:07 08/20/24 11:07 08/20/24 11:07 - General well developed, well nourished, no distress - Eyes PERRL - ENT normal pinna - Neck no masses - Respiratory normal expansion - Cardiovascular Rhythm: regular - Abdomen Abdomen: soft, non tender Bariatric Assessment & Plan Plan: Morbid. Obese. Patient is next understanding of Lap-Band procedure. She is aware of the follow-up which will be required I explained to her that I will potentially to see her once a month for the next 24 months after surgery. The patient will be scheduled for Lap-Band procedure. Bariatric Checklist Checklist: Plan: Checklist: EGD: 1. Hiatal hernia: 2. H. Pylori: HgbA1c: Vitamin D: Smoking: Former smoker Primary care physician referral: Dr. Ramirez Psychiatry clearance: Cardiology clearance: Sleep study: Diet journal: VTE risk score: VTE risk level: Rehab needs at discharge:
== END ==
LOC: BARWHC3 10:56
PROVIDERS: ATTEND Surgery
DX: E66.01 Morbid (severe) obesity due to excess calories (principal); Z88.5 Allergy status to narcotic agent; Z91.018 Allergy to other foods; Z88.8 Allergy status to other drugs, medicaments and biological substances; Z87.891 Personal history of nicotine dependence; Z68.43 Body mass index [BMI] 50.0-59.9, adult
CPT/HCPCS: 99211

== ENCOUNTER 2024-11-27 13:59 | Inpatient (IN) | payer OTHER, MEDICAID ==
--- NOTE | 2024-11-27 15:37 | ED ---
Psych HPI - General Chief Complaint: Psychiatric Symptoms Stated Complaint: mental health Time Seen by Provider: 11/27/24 14:12 Source: patient, EMS, RN notes reviewed Mode of arrival: EMS Limitations: no limitations - History of Present Illness Initial Comments: 64-year-old female presents emergency department from [facility] for psychiatric valuation. Patient has a history of schizoaffective disorder states that she has not missed any of her medications but states that she was talking to her nurse practitioner today and told her that she is engaged to [facility] and they did not believe her and sent her here for evaluation. Patient denies any physical complaints denies being suicidal homicidal. Denies any illicit drug use. - Related Data Home Medications Medication Instructions Recorded Confirmed Thyroid,Pork [[place] Thyroid] 90 mg PO DAILY 07/05/19 11/27/24 Venlafaxine HCl [Effexor XR] 300 mg PO DAILY 07/05/19 11/27/24 traZODone HCL 150 mg PO HS 07/05/19 11/27/24 Albuterol Inhaler [Ventolin Hfa 2 puff INHALATION RT-QID PRN 09/05/23 11/27/24 Inhaler] Atorvastatin [Lipitor] 80 mg PO HS 09/05/23 11/27/24 Budesonide-Formot 160-4.5 Mcg 2 puff INHALATION RT-BID 09/05/23 11/27/24 [Symbicort 160-4.5 Mcg Inhaler] Bumetanide [Bumex] 1 mg PO BID 09/05/23 11/27/24 Celecoxib [CeleBREX] 200 mg PO BID PRN 09/05/23 11/27/24 Ferrous Sulfate [Feosol] 325 mg PO DAILY 09/05/23 11/27/24 Latanoprost Ophth [Xalatan 0.005%] 1 drops BOTH EYES HS 09/05/23 11/27/24 Spironolactone [Aldactone] 25 mg PO DAILY 09/05/23 11/27/24 Gabapentin 600 mg PO BID 10/12/23 11/27/24 Fexofenadine HCl [[place]oya Allergy] 180 mg PO DAILY 05/07/24 11/27/24 Ammonium Lactate [Amlactin] 1 applic TOPICAL DAILY 08/20/24 11/27/24 Austedo Xr (Unknown Dose) 1 dose PO DAILY 11/27/24 11/27/24 Benztropine Mesylate [Cogentin] 1 mg PO DAILY 11/27/24 11/27/24 Dexlansoprazole [Dexilant] 30 mg PO BID 11/27/24 11/27/24 Gabapentin/Lidocaine/Diclofenac 1 gm TOPICAL BID PRN 11/27/24 11/27/24 5%/5%/5% Paliperidone IM [Invega Sustenna] 234 mg IM Q21D 11/27/24 11/27/24 Thyroid,Pork [[place] Thyroid] 15 mg PO DAILY 11/27/24 11/27/24 Allergies Allergy/AdvReac Type Severity Reaction Status Date / Time codeine Allergy Nausea & Verified 11/27/24 15:40 Vomiting onion Allergy Nausea Verified 11/27/24 15:40 oxcarbazepine Allergy Rash/Hives Verified 11/27/24 15:40 [From Trileptal] Pepper Allergy Nausea Verified 11/27/24 15:40 Review of Systems ROS Statement: Those systems with pertinent positive or pertinent negative responses have been documented in the HPI. ROS Other: All systems not noted in ROS Statement are negative. Past Medical History Past Medical History: Diabetes Mellitus, Hyperlipidemia, Osteoarthritis (OA), Thyroid Disorder Additional Past Medical History / Comment(s): ADD, OCD, schizoaffective disorder, hypothyroid, obesity, hyperlipidemia. 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16 worked for [employer] and exposure to silica and jacobo dust History of Any Multi-Drug Resistant Organisms: None Reported Past Surgical History: Hysterectomy, Tonsillectomy Additional Past Surgical History / Comment(s): endometrosis surgeries x2, colonoscopy, ORIF RT ANKLE, EGD Past Anesthesia/Blood Transfusion Reactions: No Reported Reaction, Blood Transfusion Reaction Additional Past Anesthesia/Blood Transfusion Reaction / Comment(s): PAtient wants no blood transfusions Past Psychological History: ADD/ADHD, Schizoaffective Disorder, Schizophrenia Smoking Status: Never smoker Past Alcohol Use History: None Reported Past Drug Use History: None Reported - Past Family History Mother Additional Family Medical History / Comment(s): empheseyma from Father Family Medical History: Myocardial Infarction ([place]) Additional Family Medical History / Comment(s): at 67 General Exam Limitations: no limitations General appearance: alert, in no apparent distress Head exam: Present: atraumatic, normocephalic, normal inspection Eye exam: Present: normal appearance, PERRL, EOMI. Absent: scleral icterus, conjunctival injection, periorbital swelling ENT exam: Present: normal exam, mucous membranes moist Neck exam: Present: normal inspection, full ROM. Absent: tenderness, me ningismus, lymphadenopathy Respiratory exam: Present: normal lung sounds bilaterally. Absent: respiratory distress, wheezes, rales, rhonchi, stridor Cardiovascular Exam: Present: regular rate, normal rhythm, normal heart sounds. Absent: systolic murmur, diastolic murmur, rubs, gallop, clicks GI/Abdominal exam: Present: soft, normal bowel sounds. Absent: distended, tenderness, guarding, rebound, rigid Neurological exam: Present: alert, oriented X3, CN II-XII intact Psychiatric exam: Present: anxious Skin exam: Present: warm, dry, intact, normal color. Absent: rash Course Vital Signs 11/27/24 14:15 Temperature 98.1 F Pulse Rate 65 Respiratory 17 Rate Blood Pressure 135/73 O2 Sat by Pulse 95 Oximetry Medical Decision Making - Medical Decision Making Was pt. sent in by a medical professional or institution (, PA, DIRECT MARKETING COORDINATOR, urgent care, hospital, or detention...) When possible be specific @ -[facility] Did you speak to anyone other than the patient for history (EMS, parent, family, police, friend...)? What history was obtained from this source @ -No Did you review nursing and triage notes (agree or disagree)? Why? @ -I reviewed and agree with nursing and triage notes Were old charts reviewed (outside hosp., previous admission, EMS record, old EKG, old radiological studies, urgent care reports/EKG's, detention records)? Report findings @ -No old charts were reviewed Differential Diagnosis (chest pain, altered mental status, abdominal pain women, abdominal pain men, vaginal bleeding, weakness, fever, dyspnea, syncope, headache, dizziness, GI bleed, back pain, seizure, CVA, palpatations, mental health, musculoskeletal)? @ -Differential Mental Health Depression, anxiety, bipolar, psychosis, schizophrenia, borderline personality, situational depression, adjustment disorder, behavioral disorder, brain tumor, malingering, substance abuse, encephalopathy, medication reaction, dementia, hypothyroidism, degenerative neurologic disorder, lupus.... This is not meant to be all-inclusive list EKG interpreted by me (3pts min.). @ -None X-rays interpreted by me (1pt min.). @ -None done CT interpreted by me (1pt min.). @ -None done U/S interpreted by me (1pt. min.). @ -None done What testing was considered but not performed or refused? (CT, X-rays, U/S, labs)? Why? @ -None What meds were considered but not given or refused? Why? @ -None Did you discuss the management of the patient with other professionals (professionals i.e. DrZhanna, PA, DIRECT MARKETING COORDINATOR, lab, RT, psych nurse, social science research assistant, demand generator manager, teacher, biological technical officer, leather case finisher)? Give summary @ -[EPS evaluated patient recommended inpatient treatment Was smoking cessation discussed for >3mins.? @ -No Was critical care preformed (if so, how long)? @ -No Were there social determinants of health that impacted care today? How? (Homelessness, low income, unemployed, alcoholism, drug addiction, transportation, low edu. Level, literacy, decrease access to med. care, [facility], rehab)? @ -No Was there de-escalation of care discussed even if they declined (Discuss DNR or withdrawal of care, Hospice)? DNR status @ -No What co-morbidities impacted this encounter? (DM, HTN, Smoking, COPD, CAD, Cancer, CVA, ARF, Chemo, Hep., AIDS, mental health diagnosis, sleep apnea, morbid obesity)? @ -None Was patient admitted / discharged? Hospital course, mention meds given and route, prescriptions, significant lab abnormalities, going to OR and other pertinent info. @ -Admitted to 3 W. Undiagnosed new problem with uncertain prognosis? @ -No Drug Therapy requiring intensive monitoring for toxicity (Heparin, Nitro, Insulin, Cardizem)? @ -No Were any procedures done? @ -No Diagnosis/symptom? @ -Schizophrenia, acute psychosis Acute, or Chronic, or Acute on Chronic? @ -Acute Uncomplicated (without systemic symptoms) or Complicated (systemic symptoms)? @ -Complicated Side effects of treatment? @ -No Exacerbation, Progression, or Severe Exacerbation? @ -No Poses a threat to life or bodily function? How? (Chest pain, [place], [place], pneumonia, PE, COPD, DKA, ARF, appy, cholecystitis, CVA, Diverticulitis, Homicidal, Suicidal, threat to staff... and all critical care pts) @ -No Disposition Clinical Impression: Acute psychosis, Schizoaffective disorder Disposition: TRANSFER TO PSYCH HOSP/UNIT Referrals: David Madison MD [Primary Care Provider] - 1-2 days Time of Disposition: 15:56
[2024-11-27 15:58] LABS: Appearance,Urine Clear (Clear); Bilirubin,Urine Negative (Negative); Blood,Urine Negative (Negative); Color,Urine Colorless; Glucose,Urine (UA) Negative (Negative); Ketones,Urine Negative (Negative); Leukocyte Esterase,Urine Negative (Negative); Nitrite,Urine Negative (Negative); PH, Urine 6.5 (5.0-8.0); Protein,Urine Negative (Negative); Specific Gravity,Urine 1.006 (1.001-1.035); Urobilinogen,Urine <2.0 mg/dL (<2.0)
[2024-11-27 16:17] LABS: Amphetamine Screen,Urine Detected (NotDetected); Barbiturate Screen,Urine Not Detected (NotDetected); Benzodiazepines Screen,Urine Not Detected (NotDetected); Cocaine Screen,Urine Not Detected (NotDetected); Methadone Screen, Urine Not Detected (NotDetected); Opiate Screen,Urine Not Detected (NotDetected); Oxycodone Screen, Urine Not Detected (NotDetected); Phencyclidine Screen,Urine Not Detected (NotDetected); Tricyclic Antidepressant,Urine Not Detected (NotDetected); Urn Cannabinoid Scrn Not Detected (NotDetected)
[2024-11-27 18:43] LABS: Influenza A Not Detected (Not Detectd); Influenza B Not Detected (Not Detectd); RSV Not Detected (Not Detectd)
[2024-11-27] MEDS ORDERED: MAGNESIUM HYDROXIDE 2,400 MG/30 ML CUP PO PRN (19:45)
[2024-11-27] MEDS ORDERED: HALOPERIDOL LACTATE 5 MG/ML 1 ML VIAL IM PRN (19:45)
[2024-11-27] MEDS ORDERED: IBUPROFEN 600 MG TAB PO PRN (19:45)
[2024-11-27] MEDS ORDERED: haloperidoL 5 MG TAB PO PRN (19:45)
[2024-11-27] MEDS ORDERED: LORazepam 2 MG/ML INJ IM PRN (19:45)
[2024-11-27] MEDS ORDERED: MELOXICAM 7.5 MG TAB PO PRN (19:48)
[2024-11-27] MEDS ORDERED: LIDOCAINE TOPICAL PRN (19:48)
[2024-11-27] MEDS ORDERED: GABAPENTIN TOPICAL PRN (19:48)
[2024-11-27] MEDS ORDERED: DICLOFENAC TOPICAL PRN (19:48)
[2024-11-27] MEDS ORDERED: SYMBICORT 160-4.5 MCG INHALER INHALATION SCH (20:00)
[2024-11-27] MEDS: BUMETANIDE 1 MG TAB PO SCH (21:00)
[2024-11-27] MEDS: traZODone HCL 50 MG TAB PO SCH (21:00)
[2024-11-27] MEDS: GABAPENTIN 300 MG CAP PO SCH (21:00)
[2024-11-27] MEDS: ATORVASTATIN 80 MG TAB PO SCH (21:00)
[2024-11-27] MEDS: ALBUTEROL INHALER 60 PUFF/8 GM INHALER (MHU) INHALATION PRN (21:01)
[2024-11-27] MEDS: LATANOPROST 0.005% OPHTH DROPS 2.5 ML BTL BOTH EYES SCH (21:01)
[2024-11-27] MEDS: PANTOPRAZOLE 40 MG TABLET PO SCH (21:01)
--- NOTE | 2024-11-27 21:28 | P.CONS ---
History of Present Illness - Reason for Consult Consult date: 11/27/24 medical co-management - Chief Complaint psychosis - History of Present Illness Ms. Sarkar is a 64-year-old female with past medical history of schizophrenia/schizoaffective disorder, morbid obesity, asthma, primary hypertension The patient presents to the hospital today after she had what appears to be a psychotic episode. The patient uses paliperidone every 21 days outpatient. Her last dose was approximately 2 weeks prior. She reports that she is currently to Yonatan hancock. She reports that she had left her engagement ring at home. She expresses that she does not have any auditory or visual hallucinations. She reports that she is compliant with all her medications. She expresses she would like to go home as she would like to see her son. Lab work obtained reveals that her urine drug screen was positive for amphetamines. Influenza AB RSV COVID-19 were negative. Urinalysis unremarkable. Most recent vital signs reveal a temperature of 98.1 heart rate of 65 respiratory 17 blood pressure 135/73. She is 95% room air. Review of Systems Pertinent positives and negatives as discussed in HPI, a complete review of systems was performed and all other systems are negative. Past Medical History Past Medical History: Diabetes Mellitus, Hyperlipidemia, Osteoarthritis (OA), Thyroid Disorder Additional Past Medical History / Comment(s): ADD, OCD, schizoaffective disorder, hypothyroid, obesity, hyperlipidemia. 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, and at the age of 16 worked for [employer] and exposure to silica and jacobo dust History of Any Multi-Drug Resistant Organisms: None Reported Past Surgical History: Hysterectomy, Tonsillectomy Additional Past Surgical History / Comment(s): endometrosis surgeries x2, colonoscopy, ORIF RT ANKLE, EGD Past Anesthesia/Blood Transfusion Reactions: No Reported Reaction, Blood Transfusion Reaction Additional Past Anesthesia/Blood Transfusion Reaction / Comm: PAtient wants no blood transfusions Past Psychological History: ADD/ADHD, Schizoaffective Disorder, Schizophrenia Smoking Status: Never smoker Past Alcohol Use History: None Reported Past Drug Use History: None Reported - Past Family History Mother Additional Family Medical History / Comment(s): empheseyma from Father Family Medical History: Myocardial Infarction (CT) Additional Family Medical History / Comment(s): at 67 Medications and Allergies Home Medications Medication Instructions Recorded Confirmed Type Thyroid,Pork [[place] Thyroid] 90 mg PO DAILY 07/05/19 11/27/24 History Venlafaxine HCl [Effexor XR] 300 mg PO DAILY 07/05/19 11/27/24 History traZODone HCL 150 mg PO HS 07/05/19 11/27/24 History Albuterol Inhaler [Ventolin Hfa 2 puff INHALATION RT-QID PRN 09/05/23 11/27/24 History Inhaler] Atorvastatin [Lipitor] 80 mg PO HS 09/05/23 11/27/24 History Budesonide-Formot 160-4.5 Mcg 2 puff INHALATION RT-BID 09/05/23 11/27/24 History [Symbicort 160-4.5 Mcg Inhaler] Bumetanide [Bumex] 1 mg PO BID 09/05/23 11/27/24 History Celecoxib [CeleBREX] 200 mg PO BID PRN 09/05/23 11/27/24 History Ferrous Sulfate [Feosol] 325 mg PO DAILY 09/05/23 11/27/24 History Latanoprost Ophth [Xalatan 0.005%] 1 drops BOTH EYES HS 09/05/23 11/27/24 History Spironolactone [Aldactone] 25 mg PO DAILY 09/05/23 11/27/24 History Gabapentin 600 mg PO BID 10/12/23 11/27/24 History Fexofenadine HCl [Toya Allergy] 180 mg PO DAILY 05/07/24 11/27/24 History Ammonium Lactate [Amlactin] 1 applic TOPICAL DAILY 08/20/24 11/27/24 History Benztropine Mesylate [Cogentin] 1 mg PO DAILY 11/27/24 11/27/24 History Deutetrabenazine [Austedo Xr 1 dose PO DIRECTED 11/27/24 11/27/24 History Titration Kt([id number])] Deutetrabenazine [Austedo Xr] 42 mg PO DIRECTED 11/27/24 11/27/24 History Dexlansoprazole [Dexilant] 30 mg PO BID 11/27/24 11/27/24 History Gabapentin/Lidocaine/Diclofenac 1 gm TOPICAL BID PRN 11/27/24 11/27/24 History 5%/5%/5% Paliperidone IM [Invega Sustenna] 234 mg IM Q21D 11/27/24 11/27/24 History Thyroid,Pork [[place] Thyroid] 15 mg PO DAILY 11/27/24 11/27/24 History Allergies Allergy/AdvReac Type Severity Reaction Status Date / Time codeine Allergy Nausea & Verified 11/27/24 15:40 Vomiting onion Allergy Nausea Verified 11/27/24 15:40 oxcarbazepine Allergy Rash/Hives Verified 11/27/24 15:40 [From Trileptal] Pepper Allergy Nausea Verified 11/27/24 15:40 Physical Exam Vitals: Vital Signs Temp Pulse Resp BP Pulse Ox 11/27/24 14:15 98.1 F 65 17 135/73 95 Intake and Output 11/27/24 11/27/24 11/27/24 06:59 14:59 22:59 Other: Weight 145.15 kg General: [nontoxic], [no distress], [appears at stated age] obese Derm: [warm], [dry] Head: [atraumatic], [normocephalic], [symmetric] Eyes: [EOMI], [no lid lag], [anicteric sclera] Mouth: [no lip lesion], [mucus membranes moist] Cardiovascular: [S1S2 reg], [no murmur], [positive posterior tibial pulse bilateral], Lungs: [CTA bilateral], [no rhonchi, no rales] , [no accessory muscle use] Abdominal: [soft], [ nontender to palpation], [no guarding], [no appreciable organomegaly] Ext: [no gross muscle atrophy], [no edema], [no contractures] Neuro: moving all extremeties spointanosuly Psych: [Alert], [oriented], delusional thought process Results Labs: Abnormal Lab Results - Last 24 Hours (Table) 11/27/24 Range/Units 15:36 Ur Amphetamines Screen Detected H (NotDetected) Assessment and Plan Assessment: #) Schzioaffective disorder/schziphrenia with delusional thought process. Primary management as per pschiatry team. She uses palmiedrone IM q21 days at home. #) Asthma COntinue home symbicort inhaler BID #) Generalized volume control with no hx of CKD/CHF. She uses bumex 1 mg BID for leg swelling at home #) Neuropathy continue home gabapentin 600 mg BID #) Hld continue home atorvastatin 80 mg hs #) Primary htn continue home sprinolactone 25 mg daily #) Hypothyroid dz continue home armour thyroid 105 mg daily #) Glaucoma continue home latoanorpost eyedrops #) Right foot Onychomycosis add clitrmazole cream BID, probably for 6-8 weeks #) Hx of PE in 2019, s/p anticoagulation with eliquis #) Morbid obesity, BMI 53, weight loss recommended. #) UDS positive for amphtamines. She denies any recreational drug use and I do not see any medications on her home list to cause a false positive CBC, CMP, a1c, lipid profile tsh pending at the time of this writing Thank you for allowing [facility] for allowing us to take care of this patient. please do not hesitate to contact us for any concerns Time with Patient: Greater than 30
[2024-11-27] MEDS: SYMBICORT 160-4.5 MCG INHALER (MHU) INHALATION SCH (22:43)
[2024-11-27] MEDS: CLOTRIMAZOLE 1% CREAM 30 GM TUBE TOPICAL SCH (22:43)
[2024-11-28 07:53] LABS: Basophils # (A) 0.03 10*3/uL (0.00-0.10); Basophils % (A) 0.5 %; Eosinophils # (A) 0.28 10*3/uL (0.04-0.35); Eosinophils % (A) 4.3 %; HCT 40.7 % (37.2-46.3); HGB 13.3 g/dL (12.0-15.0); Lymphocytes # (A) 1.29 10*3/uL (0.90-5.00); Lymphocytes % (A) 19.9 %; MCH 32.3 pg (27.0-32.0); MCHC 32.7 g/dL (32.0-37.0); MCV 98.8 fL (80.0-97.0); Mean Platelet Volume 10.5 fL (9.5-12.2); Monocytes % (A) 9.3 %; Neutrophils # (A) 4.26 10*3/uL (1.80-7.70); Neutrophils % (A) 65.8 %; Platelet Count 301 10*3/uL (140-440); RBC 4.12 10*6/uL (4.10-5.20); RDW 13.7 % (11.5-14.5); WBC 6.47 10*3/uL (4.50-10.00)
[2024-11-28 08:09] LABS: ALT 16 U/L (4-34); AST 18 U/L (14-36); African American GFR (CKD) 59 (>60 ml/min/1.73 sqM); Albumin 4.3 g/dL (3.5-5.0); Alkaline Phosphatase 84 U/L (38-126); Anion Gap 8 mmol/L; Blood Urea Nitrogen 17 mg/dL (7-17); Calcium 10.1 mg/dL (8.4-10.2); Carbon Dioxide 32 mmol/L (22-30); Chloride 102 mmol/L (98-107); Glucose 109 mg/dL (74-99); Non-African American GFR(CKD) 51 (>60 ml/min/1.73 sqM); Potassium 4.5 mmol/L (3.5-5.1); Sodium 142 mmol/L (137-145); Total Bilirubin 0.5 mg/dL (0.2-1.3); Total Protein 7.4 g/dL (6.3-8.2)
[2024-11-28] MEDS: AMMONIUM LACTATE 12% LOTION 225 GM BTL TOPICAL SCH (08:59)
[2024-11-28] MEDS ORDERED: THYROID PORK 15 MG PO SCH (09:00)
[2024-11-28] MEDS: VENLAFAXINE HCL ER 150 MG CAP PO SCH (09:00)
[2024-11-28] MEDS: FERROUS SULFATE 325 MG TAB PO SCH (09:01)
[2024-11-28] MEDS: SPIRONOLACTONE 25 MG TAB PO SCH (09:02)
[2024-11-28] MEDS: DEUTETRABENAZINE PO SCH (09:03)
[2024-11-28] MEDS: THYROID, PORK 30 MG TAB PO SCH (09:03)
[2024-11-28] MEDS: BENZTROPINE MESYLATE 1 MG TAB PO SCH (09:18)
[2024-11-28 11:15] LABS: Chol/HDL Ratio 2.46 Ratio; LDL Cholesterol,Calculated 85.1 mg/dL (0.0-131.0); VLDL Calculation 16.46 mg/dL (5.00-40.00)
[2024-11-28] MEDS: DEUTETRABENAZINE 30 MG PO SCH (12:15)
[2024-11-28] MEDS: DEUTETRABENAZINE 24 MG PO SCH (12:32)
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
[2024-11-28] MEDS: haloperidoL 5 MG TAB PO SCH (21:59)
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
[2024-11-30] MEDS: ACETAMINOPHEN TAB 325 MG TAB PO PRN (06:18)
[2024-11-30] MEDS: BUMETANIDE 1 MG TAB PO SCH (06:19)
--- NOTE | 2024-11-30 13:18 | P.PN ---
Progress Note - Text Progress Note Date: 11/30/24 Interval History: Patient was seen in bed and was directable and agreeable to speak with caption writer in the room. Patient has been tending to her ADLs however did present tearful today, exhibiting delusions stating she is upset because of her son's having to have a heart surgery. She does report sleeping well overnight with the CPAP. She reports feeling fatigued however is unsure as to the cause of this. She continues to express a desire to leave and live with her fianc alone mask. She states she does not want to work with [facility] anymore due to them bringing her here in the hospital and feels as though they are taking advantage of her by taking her money. At this time patient denies any suicidal or homicidal ideations, intent or plan. Patient denies any auditory, visual hallucinations. Patient denies any side effects from the medications and has been compliant with meds. Spoke to AYE Stark at [facility] who states she has been following patient since August has been exhibiting the same delusions with hallucinations. She states that her son is fine and healthy. She states that patient has no boyfriend and keeps expressing a desire to leave her home however this escalated to her being more aggressive that landed her here in the hospital. She states patient ultimately got evicted from her home due to giving money to her online boyfriend which was a scam. She has been staying at [facility] ever since being evicted. She states patient last received her Invega Sustenna 156 mg on 11/16/2024. She states patient does exhibit delusions at baseline including needing to send money to various people however these new delusions of her son needing open heart surgery is new. [facility] will assist with discharging including picking up patient and transporting her back when stable. Mental Status Exam: General Appearance: Patient appears to be stated age is alert, directable, and cooperative. She is obese Behavior: Patient is calmly seated without any agitated behavior. She is intermittently tearful Speech: Patient's speech is fluent and nonpressured. Mood/Affect: Mood is improving mildly, affect is congruent and constricted. Suicidality/Homicidality: Patient denies having any suicidal or homicidal ideation intent or plan. Perceptions: Patient denies any visual hallucinations and denies any auditory hallucinations Though content/process: There is evidence of bizarre delusional thoughts, paranoia Memory and concentration: AOX3, grossly intact for the purposes of this session Judgment and insight: Improving mildly Assessment Schizoaffective disorder, bipolar type Tardive dyskinesia Plan: -Patient continues to meet criteria for inpatient psychiatric admission for symptom stabilization and safety. Patient has signed adult voluntary form and medication consent and was placed in patient's chart. -Medications: Increase Haldol to 10 mg at bedtime for psychosis, decrease trazodone to 100 mg at bedtime for insomnia, continue Effexor XR 300 mg daily for depression, Austedo XR -When necessary Ativan and Haldol for agitation/aggression. -Labs: Reviewed -SW on board for discharge planning. Encouraged the patient to participate in milieu.
[2024-11-30] MEDS: traZODone HCL 100 MG TAB PO SCH (21:18)
[2024-11-30] MEDS: haloperidoL 5 MG TAB PO SCH (21:18)
[2024-11-30] MEDS: MAG HYDROX/AL HYDROX/SIMETH 355 ML BOTTLE PO PRN (21:45)
--- NOTE | 2024-12-01 14:55 | P.PN ---
Progress Note - Text Progress Note Date: 12/01/24 Dictation was produced using [employer] dictation software. Please excuse any grammatical, word or spelling errors. Interval history: Patient was seen in the hallway and was directable and agreeable to speak with the parts data writer in the office for psychiatric follow-up. The patient states that she is feeling okay, "my knees are hurting." States that her mood her mood is "fine," states that Dr. Tolliver does not believe me "I have to go home," "my son will have a heart transplant, he is already has 2 transplant before." She states that depression and anxiety are at the low side, she rated both at 0/10. She denied any current SI/HI or self harm, she denied any current AVH, reported that she used to hear voices, last about 1 month ago. She states that she slept well last nigh, however it is reported 3 hours overnight. She states that she used CPAP twice while in the hospital. She states that she has been taking her medication, she denied any side effects. She admitted to good appetite. States that she is feeling safe, and is getting along well with everyone her. She states that she want to go home. She has a limited insight into her mental illness, and is fixated on going home, she claims that she live with her SO, and her son "he is in cold state waiting for a heart transplant". Mental Status Exam: General Appearance: Patient appears to be stated age is alert, directable, and cooperative. She is obese Behavior: Patient is calmly seated without any agitated behavior. She is intermittently tearful Speech: Patient's speech is fluent and nonpressured. She is hyperverbal, needed multiple redirection. However overall is pleasant. Mood/Affect: Mood is improving mildly, affect is congruent and constricted. Suicidality/Homicidality: Patient denies having any suicidal or homicidal ideation intent or plan. Perceptions: Patient denies any visual hallucinations and denies any auditory hallucinations Though content/process: There is evidence of bizarre delusional thoughts, paranoia, thought process is tangential, illogical and nonsensical Memory and concentration: AOX3, grossly intact for the purposes of this session Judgment and insight: Improving mildly Assessment Schizoaffective disorder, bipolar type Tardive dyskinesia Assessment/Plan: Continue with current diagnosis. Patient continues to meet criteria for inpatient psychiatric admission for symptom stabilization and safety. Patient will be maintained on current psychotropic medication regimen which include Haldol 10 mg p.o. daily which was increased on Tuesday, trazodone 100 mg p.o. at bedtime, Effexor XR 300 mg p.o. daily, Cogentin 1 mg p.o. daily, and Austedo XR, this reported that patient received Invega Sustenna 156 mg on 11/16/2024, no changes today. Patient denied any side effects, she denied any muscle stiffness, rigidity, abnormal movement, or drooling. Monitor for medication compliance and for any psychotropic medication side effects. Will continue to monitor ongoing response to treatment. Encouraged participation in milieu.
[2024-12-01] MEDS: LORazepam 1 MG TAB PO PRN (22:34)
--- NOTE | 2024-12-02 09:49 | P.PN ---
Progress Note - Text Progress Note Date: 12/02/24 Dictation was produced using [employer] dictation software. Please excuse any grammatical, word or spelling errors. Interval history: Patient was seen in the hallway and was directable and agreeable to speak with the service writer advisor in the office for psychiatric follow-up. The patient states that she is feeling "okay" states that she wants to go home with her fiance, states that "I get the information in my brain, tells me someone moved in to the house without my permission" states that it has been happening to me for the last 8 weeks. States that it is not like hearing voices, "just the thoughts". States that sleep was not great last night since her thoughts were ruminating, and she asked for prn which was helpful, this reported that she slept 6 hours overnight, states that she is worried about everything. States that depression is low, she rated depression at 1/10. States that anxiety is moderate, she rated at 4-5/10. States that she wants to go home tomorrow. She denied any current SI/HI or self harm. She denied any current AVH, however she appear paranoid and is fixated on her fiance, and going back home, states that her fiance name is "Yonatan Bhatt" and reported that he found me on the internet, and "no one know that he lives in [place]." She has been taking her medications, she denied any current side effects. She denied any muscle stiffness, rigidity, abnormal movement, or drooling. She has no insight into her current mental illness, continues to have false fixed delusion about her fianc. Mental Status Exam: General Appearance: Patient appears to be stated age is alert, directable, and cooperative. She is obese, using a wheelchair Behavior: Patient is calmly seated without any agitated behavior. She is intermittently tearful Speech: Patient's speech is fluent and nonpressured. She is hyperverbal, needed multiple redirection. However overall is pleasant. Mood/Affect: Mood is improving mildly, affect is congruent and constricted. Suicidality/Homicidality: Patient denies having any suicidal or homicidal ideation intent or plan. Perceptions: Patient denies any visual hallucinations and denies any auditory hallucinations Though content/process: There is evidence of bizarre delusional thoughts, paranoia, thought process is tangential, illogical and nonsensical Memory and concentration: AOX3, grossly intact for the purposes of this session Judgment and insight: Improving mildly Assessment Schizoaffective disorder, bipolar type Tardive dyskinesia Assessment/Plan: Continue with current diagnosis. Patient continues to meet criteria for inpatient psychiatric admission for symptom stabilization and safety. Patient will be maintained on current psychotropic medication regimen which include Haldol 10 mg p.o. daily which was increased on Tuesday, trazodone 100 mg p.o. at bedtime, Effexor XR 300 mg p.o. daily, Cogentin 1 mg p.o. daily, and Austedo XR, this reported that patient received Invega Sustenna 156 mg on 11/16/2024, no changes today. Patient denied any side effects, she denied any muscle stiffness, rigidity, abnormal movement, or drooling. Monitor for medication compliance and for any psychotropic medication side effects. Will continue to monitor ongoing response to treatment. Encouraged participation in milieu.
--- NOTE | 2024-12-03 12:05 | P.PN ---
Progress Note - Text Progress Note Date: 12/03/24 Interval History: Patient was seen wandering the hallways and was directable and agreeable to caprice godinez with staff writer in the office. He used to express delusional thoughts described as her sons coming home from surgery which upsets her as she has been unable to speak to them. Patient was tearful during interview, expresses desire to go home to her new house that Yonatan hancock purchase. Attempted to reality orient patient regarding the statements however patient displayed poor insight into these delusions, being adamant that Yonatan hancock and her are in a relationship. She has not been using her CPAP due to it keeping her up at night she says. She does mention her fatigue has improved. At this time patient denies any suicidal or homicidal ideations, intent or plan. Patient denies any auditory, visual hallucinations and denies any paranoia. Patient denies any side effects from the medications and has been compliant with meds. Mental Status Exam: General Appearance: Patient appears to be stated age is alert, directable, and cooperative. She is wearing glasses, obese Behavior: Patient is calmly seated without any agitated behavior. She ambulates via wheelchair Speech: Patient's speech is fluent and nonpressured. Mood/Affect: Mood is improving mildly, affect is congruent and constricted. Suicidality/Homicidality: Patient denies having any suicidal or homicidal ideation intent or plan. Perceptions: Patient denies any visual hallucinations and denies any auditory hallucinations Though content/process: There is evidence of fixed delusions of being in a relationship with Yonatan hancock and her sons having surgery Memory and concentration: AOX3, grossly intact for the purposes of this session Judgment and insight: Historically poor however improving mildly Assessment Schizoaffective disorder, bipolar type Tardive dyskinesia Plan: -Patient continues to meet criteria for inpatient psychiatric admission for symptom stabilization and safety. Patient has signed adult voluntary form and medication consent and was placed in patient's chart. -Medications: Increase Haldol to 15 milligrams at bedtime for psychosis, continue trazodone 100 mg at bedtime for insomnia, Effexor XR 300 mg daily for depression, Austedo XR -When necessary Ativan and Haldol for agitation/aggression. -Labs: Reviewed -SW on board for discharge planning. Encouraged the patient to participate in milieu. Patient signed AMA today for the discharge set for Tuesday, back to [facility]. [facility] will assist with discharge
[2024-12-04] MEDS: haloperidoL 5 MG TAB PO SCH (08:37)
--- NOTE | 2024-12-04 12:31 | P.PN ---
Progress Note - Text Progress Note Date: 12/04/24 Interval History: Patient was seen in her room and was directable and agreeable to speak with wr iter in the room. Patient has been compliant with her Haldol, still expressing delusions of being engaged to Yonatan hancock and that her signs did not make it through open heart surgery despite no evidence showing this. Patient overall is pleasant, she states she has not been using her CPAP machine at night due to it being uncomfortable however she will use the one she has at her house as it is smaller and more comfortable. She reports feeling tired this morning but does report sleeping well overall. She requests to be discharged soon. At this time patient denies any suicidal or homicidal ideations, intent or plan. Patient denies any auditory, visual hallucinations and denies any paranoia. Patient denies any side effects from the medications and has been compliant with meds. Mental Status Exam: General Appearance: Patient appears to be stated age is alert, directable, and cooperative. She is obese, wears glasses Behavior: Patient is calmly laying without any agitated behavior. Speech: Patient's speech is fluent and nonpressured. Mood/Affect: Mood is improving mildly, affect is congruent and constricted. Suicidality/Homicidality: Patient denies having any suicidal or homicidal ideation intent or plan. Perceptions: Patient denies any visual hallucinations and denies any auditory hallucinations Though content/process: There is evidence of bizarre delusions of being engaged alone mask, sons receiving open heart surgery that are fixed in nature Memory and concentration: AOX3, grossly intact for the purposes of this session Judgment and insight: Historically poor however improving mildly Assessment Schizoaffective disorder, bipolar type Tardive dyskinesia Plan: -Patient continues to meet criteria for inpatient psychiatric admission for symptom stabilization and safety. Patient has signed adult voluntary form and medication consent and was placed in patient's chart. -Medications: Continue Haldol 15 mg at bedtime for psychosis, trazodone 100 mg at bedtime for insomnia, Effexor XR 300 mg daily for depression, Austedo XR -When necessary Ativan and Haldol for agitation/aggression. -Labs: Reviewed -SW on board for discharge planning. Encouraged the patient to participate in milieu. Patient signed AMA yesterday to be discharged prior to at 930. [facility] will pick patient up at 1130.
[2024-12-05] MEDS ORDERED: DEUTETRABENAZINE PO SCH (09:00)
--- NOTE | 2024-12-05 11:43 | P.PN ---
Progress Note - Text Progress Note Date: 12/05/24 Interval History: Patient was seen wandering the hallways and was directable and agreeable to caprice godinez with bond writer in the tim. She reports fatigue which she feels this does due to cancer however she has been nonadherent with her CPAP machine while in the hospital and she was educated on how this can impact sleep and the necessity to wear this nightly once discharged. She continues to express fixed delusions of being engaged to [employer] and that she will return home with him however her previous residence at [facility] was also brought up to which patient states that "it is an okay place to stay" and she was advised of the transportation being arranged for tomorrow morning to which she acknowledged. She has been tending to her ADLs, adherent with medications. At this time patient denies any suicidal or homicidal ideations, intent or plan. Patient denies any auditory, visual hallucinations and denies any paranoia or delusions. Patient denies any side effects from the medications and has been compliant with meds. Mental Status Exam: General Appearance: Patient appears to be stated age is alert, directable, and cooperative. She is wearing glasses, obese Behavior: Patient is calmly seated without any agitated behavior. She ambulates via wheelchair Speech: Patient's speech is fluent and nonpressured. Mood/Affect: Mood is improving mildly, affect is congruent and constricted. Suicidality/Homicidality: Patient denies having any suicidal or homicidal ideation intent or plan. Perceptions: Patient denies any visual hallucinations and denies any auditory hallucinations Though content/process: There is evidence of fixed delusional thoughts of being engaged to Yonatan [employer], less fixation on prior delusions of sons having open heart surgery Memory and concentration: AOX3, grossly intact for the purposes of this session Judgment and insight: Historically poor however improving mildly Assessment Schizoaffective disorder, bipolar type Tardive dyskinesia Plan: -Patient continues to meet criteria for inpatient psychiatric admission for symptom stabilization and safety. Patient has signed adult voluntary form and medication consent and was placed in patient's chart. -Medications: Continue Haldol 15 mg at bedtime for psychosis, trazodone 100 mg at bedtime for insomnia, Effexor XR 300 mg daily for depression, Austedo XR 30 mg daily for tardive dyskinesia -When necessary Ativan and Haldol for agitation/aggression. -Labs: Reviewed -SW on board for discharge planning. Encouraged the patient to participate in milieu. Patient to be discharged tomorrow with the [facility] picking patient up at 1130. Patient signed 72-hour AMA and would be discharged prior to tomorrow at 930
[2024-12-05 21:47] VITALS: TEMP 97.8
[2024-12-06 10:37] VITALS: BP 90/53; PULSE 86; RESP 16
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
[2024-12-07] MEDS ORDERED: DEUTETRABENAZINE PO SCH (09:00)
== END 2024-12-06 11:55 | disposition home or self-care (01) | DRG 885 ==
LOC: EC 13:59 → 3MHU 19:36
PROVIDERS: ADMIT Psychiatry & Neurology Psychiatry; ATTEND Psychiatry & Neurology Psychiatry
DX: F25.0 Schizoaffective disorder, bipolar type (principal); Z68.43 Body mass index [BMI] 50.0-59.9, adult; B35.1 Tinea unguium; E03.9 Hypothyroidism, unspecified; E11.40 Type 2 diabetes mellitus with diabetic neuropathy, unspecified; E66.9 Obesity, unspecified; I10 Essential (primary) hypertension; J45.909 Unspecified asthma, uncomplicated; M19.90 Unspecified osteoarthritis, unspecified site; F90.9 Attention-deficit hyperactivity disorder, unspecified type; E78.5 Hyperlipidemia, unspecified; G24.01 Drug induced subacute dyskinesia; F41.9 Anxiety disorder, unspecified; F42.9 Obsessive-compulsive disorder, unspecified; G47.00 Insomnia, unspecified; H40.9 Unspecified glaucoma; Z79.1 Long term (current) use of non-steroidal anti-inflammatories (NSAID); Z79.51 Long term (current) use of inhaled steroids; Z79.899 Other long term (current) drug therapy; Z79.890 Hormone replacement therapy; Z71.51 Drug abuse counseling and surveillance of drug abuser; Z71.89 Other specified counseling; Z28.21 Immunization not carried out because of patient refusal; Z88.5 Allergy status to narcotic agent; Z88.8 Allergy status to other drugs, medicaments and biological substances
CPT/HCPCS: 80053; 80061; 80306; 81003; 82075; 83036; 84439; 84443; 85025; 87636; 94660; 99285

== ENCOUNTER 2024-12-23 19:46 | Emergency (ER) | payer OTHER ==
--- NOTE | 2024-12-23 20:03 | ED ---
General Adult HPI - General Source: patient, EMS, RN notes reviewed, old records reviewed Mode of arrival: EMS Limitations: altered mental status <Tomasz Loera - Last Filed: 12/23/24 20:40> <Kalia Wilson - Last Filed: 12/23/24 21:44> - General Stated complaint: Psych eval Time Seen by Provider: 12/23/24 19:49 - History of Present Illness Initial comments: 64-year-old female presenting for psychiatric evaluation. Patient was sent in from her adult foster care for psychiatric evaluation, patient is apparently paranoid and delusional history of schizophrenia. Apparently staff is petitioning the patient for psychiatric evaluation. She had a recent admission to this hospital with similar issue. No physical complaints. (Tomasz Loera) - Related Data Home Medications Medication Instructions Recorded Confirmed Thyroid,Pork [[place] Thyroid] 90 mg PO DAILY 07/05/19 11/27/24 Venlafaxine HCl [Effexor XR] 300 mg PO DAILY 07/05/19 11/27/24 Atorvastatin [Lipitor] 80 mg PO HS 09/05/23 11/27/24 Budesonide-Formot 160-4.5 Mcg 2 puff INHALATION RT-BID 09/05/23 11/27/24 [Symbicort 160-4.5 Mcg Inhaler] Bumetanide [BUMEX] 1 mg PO BID 09/05/23 11/27/24 Ferrous Sulfate [Iron (65 MG 325 mg PO DAILY 09/05/23 11/27/24 Elemental)] Latanoprost Ophth [Xalatan 0.005%] 1 drops BOTH EYES HS 09/05/23 11/27/24 Spironolactone [Aldactone] 25 mg PO DAILY 09/05/23 11/27/24 Gabapentin 600 mg PO BID 10/12/23 11/27/24 Ammonium Lactate [Amlactin] 1 applic TOPICAL DAILY 08/20/24 11/27/24 Benztropine Mesylate [Cogentin] 1 mg PO DAILY 11/27/24 11/27/24 Deutetrabenazine [Austedo Xr 1 dose PO DIRECTED 11/27/24 11/27/24 Titration Kt(Wk1-4)] Deutetrabenazine [Austedo Xr] 42 mg PO DIRECTED 11/27/24 11/27/24 Thyroid,Pork [[place] Thyroid] 15 mg PO DAILY 11/27/24 11/27/24 Previous Rx's Medication Instructions Recorded Albuterol Inhaler [Ventolin Hfa 2 puff INHALATION RT-QID PRN each 12/06/24 Inhaler] Pantoprazole [Protonix] 40 mg PO BID tab 12/06/24 haloperidoL [Haldol] 15 mg PO HS 30 Days #30 tab 12/06/24 traZODone HCL [Desyrel] 100 mg PO HS 30 Days #30 tab 12/06/24 Allergies Allergy/AdvReac Type Severity Reaction Status Date / Time codeine Allergy Nausea & Verified 11/27/24 15:40 Vomiting onion Allergy Nausea Verified 11/27/24 15:40 oxcarbazepine Allergy Rash/Hives Verified 11/27/24 15:40 [From Trileptal] Pepper Allergy Nausea Verified 11/27/24 15:40 Review of Systems ROS Other: All systems not noted in ROS Statement are negative. <Tomasz Loera - Last Filed: 12/23/24 20:40> ROS Other: All systems not noted in ROS Statement are negative. <Kalia Wilson - Last Filed: 12/23/24 21:44> ROS Statement: Those systems with pertinent positive or pertinent negative responses have been documented in the HPI. Past Medical History Past Medical History: Diabetes Mellitus, Hyperlipidemia, Osteoarthritis (OA), Thyroid Disorder Additional Past Medical History / Comment(s): ADD, OCD, schizoaffective disorder, hypothyroid, obesity, hyperlipidemia. History of Any Multi-Drug Resistant Organisms: None Reported Past Surgical History: Hysterectomy, Orthopedic Surgery, Tonsillectomy Additional Past Surgical History / Comment(s): endometrosis surgeries x2, colonoscopy, ORIF RT ANKLE, EGD Past Anesthesia/Blood Transfusion Reactions: No Reported Reaction Additional Past Anesthesia/Blood Transfusion Reaction / Comment(s): PAtient wants no blood transfusions Past Psychological History: ADD/ADHD, Schizoaffective Disorder, Schizophrenia Smoking Status: Former smoker - Past Family History Mother Additional Family Medical History / Comment(s): empheseyma from Father Family Medical History: Myocardial Infarction (DC) Additional Family Medical History / Comment(s): at 67 <Tomasz Loera - Last Filed: 12/23/24 20:40> General Exam Limitations: altered mental status General appearance: alert, in no apparent distress Head exam: Present: atraumatic, normocephalic Eye exam: Present: normal appearance, PERRL ENT exam: Present: normal exam Neck exam: Present: normal inspection. Absent: tenderness, meningismus Respiratory exam: Present: normal lung sounds bilaterally. Absent: respiratory distress Cardiovascular Exam: Present: regular rate, normal rhythm GI/Abdominal exam: Present: soft. Absent: distended, tenderness Extremities exam: Present: normal inspection Neurological exam: Present: alert, oriented X3, CN II-XII intact. Absent: motor sensory deficit <Tomasz Loera N - Last Filed: 12/23/24 20:40> Course Vital Signs 12/23/24 19:53 Temperature 98.3 F Pulse Rate 78 Respiratory 18 Rate Blood Pressure 147/82 O2 Sat by Pulse 94 L Oximetry Medical Decision Making <Tomasz Loera N - Last Filed: 12/23/24 20:40> - Medical Decision Making Was pt. sent in by a medical professional or institution (, PA, ASSISTANT PROFESSOR IN FAMILY STUDIES, urgent ca re, hospital, or snf...) When possible be specific @ -Sent in by [facility] physician Did you speak to anyone other than the patient for history (EMS, parent, family, police, friend...)? What history was obtained from this source @ -No Did you review nursing and triage notes (agree or disagree)? Why? @ -I reviewed and agree with nursing and triage notes Were old charts reviewed (outside hosp., previous admission, EMS record, old EKG, old radiological studies, urgent care reports/EKG's, snf records)? Report findings @ -No old charts were reviewed Differential Mental Health Depression, anxiety, bipolar, psychosis, schizophrenia, borderline personality, situational depression, adjustment disorder, behavioral disorder, brain tumor, malingering, substance abuse, encephalopathy, medication reaction, dementia, hypothyroidism, degenerative neurologic disorder, lupus.... This is not meant to be all-inclusive list EKG interpreted by me (3pts min.). @ -As above X-rays interpreted by me (1pt min.). @ -None done CT interpreted by me (1pt min.). @ -None done U/S interpreted by me (1pt. min.). @ -None done What testing was considered but not performed or refused? (CT, X-rays, U/S, labs)? Why? @ -None What meds were considered but not given or refused? Why? @ -None Did you discuss the management of the patient with other professionals (professionals i.e. , PA, ASSISTANT PROFESSOR IN FAMILY STUDIES, lab, RT, psych nurse, oncology social work, auto body repair estimator, teacher, community service officer, case packer and sealer)? Give summary @ -No Was smoking cessation discussed for >3mins.? @ -No Was critical care preformed (if so, how long)? @ -No Were there social determinants of health that impacted care today? How? (Homelessness, low income, unemployed, alcoholism, drug addiction, transportation, low edu. Level, literacy, decrease access to med. care, penitentiary, rehab)? @ -No Was there de-escalation of care discussed even if they declined (Discuss DNR or withdrawal of care, Hospice)? DNR status @ -No What co-morbidities impacted this encounter? (DM, HTN, Smoking, COPD, CAD, Cancer, CVA, ARF, Chemo, Hep., AIDS, mental health diagnosis, sleep apnea, morbid obesity)? @ -[Schizophrenia Was patient admitted / discharged? Hospital course, mention meds given and route, prescriptions, significant lab abnormalities, going to OR and other pertinent info. @ -Patient medically cleared awaiting EPS evaluation, care signed out to Dr. Wilson at shift change. (Tomasz Loera) - Lab Data Lab Results 12/23/24 12/23/24 Range/Units 20:11 20:21 Urine Opiates Screen Not Detected (NotDetected) Ur Oxycodone Screen Not Detected (NotDetected) Urine Methadone Screen Not Detected (NotDetected) Ur Barbiturates Screen Not Detected (NotDetected) U Tricyclic Antidepress Not Detected (NotDetected) Ur Phencyclidine Scrn Not Detected (NotDetected) Ur Amphetamines Screen Not Detected (NotDetected) U Methamphetamines Scrn Not Detected (NotDetected) U Benzodiazepines Scrn Not Detected (NotDetected) Urine Cocaine Screen Not Detected (NotDetected) U Marijuana (THC) Screen Not Detected (NotDetected) Influenza Type A (PCR) Not Detected (Not Detectd) Influenza Type B (PCR) Not Detected (Not Detectd) RSV (PCR) Not Detected (Not Detectd) SARS-CoV-2 (PCR) Not Detected (Not Detectd) Disposition <Tomasz Loera N - Last Filed: 12/23/24 20:40> Is patient prescribed a controlled substance at d/c from ED?: No <Kalia Wilson - Last Filed: 12/23/24 21:44> Clinical Impression: Acute psychosis Disposition: HOME SELF-CARE Condition: Fair Instructions (If sedation given, give patient instructions): Mood Disorders (ED) Referrals: David Madison MD [Primary Care Provider] - 1-2 days
[2024-12-23 20:23] VITALS: RESP 18; TEMP 98.3
[2024-12-23 20:56] LABS: Influenza A Not Detected (Not Detectd); Influenza B Not Detected (Not Detectd); RSV Not Detected (Not Detectd)
[2024-12-23 21:20] LABS: Amphetamine Screen,Urine Not Detected (NotDetected); Barbiturate Screen,Urine Not Detected (NotDetected); Benzodiazepines Screen,Urine Not Detected (NotDetected); Cocaine Screen,Urine Not Detected (NotDetected); Methadone Screen, Urine Not Detected (NotDetected); Opiate Screen,Urine Not Detected (NotDetected); Oxycodone Screen, Urine Not Detected (NotDetected); Phencyclidine Screen,Urine Not Detected (NotDetected); Tricyclic Antidepressant,Urine Not Detected (NotDetected); Urn Cannabinoid Scrn Not Detected (NotDetected)
[2024-12-23 22:25] VITALS: BP 136/77; PULSE 81
== END 2024-12-23 22:25 | disposition home or self-care (01) ==
LOC: EC 19:46
DX: F23 Brief psychotic disorder (principal); Z87.891 Personal history of nicotine dependence; Z88.5 Allergy status to narcotic agent; Z91.018 Allergy to other foods; Z88.8 Allergy status to other drugs, medicaments and biological substances
CPT/HCPCS: 80306; 82075; 87636; 99285